=== PATIENT | female | born 1985 | race African-American/Black ===

== ENCOUNTER 2016-08-22 16:22 | Outpatient (CLI) | payer MEDICAID | END 2016-08-22 17:09 | disposition home or self-care (01) | LOC: LC 16:22 | PROVIDERS: ATTEND Specialist | PROC: 4A1HXCZ Monitoring of Products of Conception, Cardiac Rate, External Approach (ICD-10-PCS; principal; 2016-08-22) | DX: Z34.93 Encounter for supervision of normal pregnancy, unspecified, third trimester (principal); Z36 Encounter for antenatal screening of mother; Z3A.35 35 weeks gestation of pregnancy | CPT/HCPCS: 59025 ==

== ENCOUNTER 2016-08-25 17:19 | Outpatient (CLI) | payer MEDICAID | END 2016-08-25 18:00 | disposition home or self-care (01) | LOC: LC 17:19 | PROVIDERS: ATTEND Obstetrics & Gynecology | PROC: 4A1HXCZ Monitoring of Products of Conception, Cardiac Rate, External Approach (ICD-10-PCS; principal; 2016-08-25) | DX: Z34.93 Encounter for supervision of normal pregnancy, unspecified, third trimester (principal); Z36 Encounter for antenatal screening of mother; Z3A.36 36 weeks gestation of pregnancy | CPT/HCPCS: 59025 ==

== ENCOUNTER 2016-09-01 15:02 | Outpatient (CLI) | payer MEDICAID ==
--- NOTE | 2016-09-01 15:10 | Non Stress Test Report ---
Non Stress Test Datetime Report Generated by CPN: 09/01/2016 15:10 DEMOGRAPHIC EGA NST: 36.2 INDICATION Indication for Study: Ordered by Provider VITAL SIGNS Temperature - NST: 98.1 Pulse - NST: 80 RESP - NST: 16 NBPSYS NST: 110 NBPDIA NST: 72 MONITORING Monitor Explained: Monitor Explained; Test Explained; Patient Verbalized Understanding Time on Monitor: 08/25/2016 17:37 Time off Monitor: 08/25/2016 18:10 NST Duration: 33 NST INTERVENTIONS NST Interventions: PO Hydration; Reposition Patient Physician Notified NST: Dr Arnulfo BABY A: [id number] BABY A Movement : Present Contraction Frequency : irreg FHR Baseline : 120 Accelerations : 15X15 Decelerations : None Variability : Moderate 6-25bpm NST Review: Meets Criteria for Reactive NST NST Review and Verified By : Arun Pritchard RN NST Results: Reactive NST REPORT Report Trigger: Send Report
== END 2016-09-01 15:55 | disposition home or self-care (01) ==
LOC: LC 15:02
PROVIDERS: ATTEND Obstetrics & Gynecology
PROC: 4A1HXCZ Monitoring of Products of Conception, Cardiac Rate, External Approach (ICD-10-PCS; principal; 2016-09-01)
DX: O47.03 False labor before 37 completed weeks of gestation, third trimester (principal); Z3A.36 36 weeks gestation of pregnancy
CPT/HCPCS: 59025

== ENCOUNTER 2016-09-14 22:00 | Outpatient (CLI) | payer MEDICAID ==
--- NOTE | 2016-09-14 22:06 | Non Stress Test Report ---
Non Stress Test Datetime Report Generated by CPN: 09/14/2016 22:05 DEMOGRAPHIC EGA NST: 37.2 INDICATION Indication for Study: Ordered by Provider Indication for Study (NST) Other: sent from the office VITAL SIGNS Temperature - NST: 99.9 MONITORING Monitor Explained: Monitor Explained; Test Explained; Patient Verbalized Understanding Time on Monitor: 09/01/2016 15:10 Time off Monitor: 09/01/2016 15:44 NST Duration: 34 NST INTERVENTIONS NST Interventions: Reposition Patient Physician Notified NST: J Coon CNM BABY A: [id number] BABY A Movement : Present Contraction Frequency : irreg FHR Baseline : 120 Accelerations : 15X15 Decelerations : None Variability : Moderate 6-25bpm NST Review: Meets Criteria for Reactive NST NST Review and Verified By : Bony Yee RN NST Results: Reactive NST REPORT Report Trigger: Send Report
[2016-09-14] MEDS ORDERED: HYDROXYZINE PAMOATE 50 MG CAPSULE ONE (23:12)
[2016-09-14 23:19] LABS: APPEARANCE,URINE CLEAR; BILIRUBIN,URINE NEGATIVE (NEGATIVE); GLUCOSE, URINE NEGATIVE (NEGATIVE); KETONES,URINE NEGATIVE (NEGATIVE); LEUKOCYTE ESTERASE,URINE TRACE (NEGATIVE); NITRITE,URINE NEGATIVE (NEGATIVE); PROTEIN,URINE NEGATIVE (NEGATIVE); URINE SPECIFIC GRAVITY 1.009; UROBILINOGEN,URINE NEGATIVE mg/dL (<2.0)
--- NOTE | 2016-09-14 23:19 | Non Stress Test Report ---
Non Stress Test Datetime Report Generated by CPN: 09/14/2016 23:19 DEMOGRAPHIC EGA NST: 39.1 INDICATION Indication for Study: Other Indication for Study (NST) Other: LC VITAL SIGNS Temperature - NST: 98.2 Pulse - NST: 76 NBPSYS NST: 124 NBPDIA NST: 78 MONITORING Monitor Explained: Monitor Explained; Test Explained; Patient Verbalized Understanding Time on Monitor: 09/14/2016 22:38 Time off Monitor: 09/14/2016 23:09 NST Duration: 31 NST INTERVENTIONS NST Interventions: PO Hydration Physician Notified NST: Harper BABY A Movement : Present Contraction Frequency : Irritability FHR Baseline : 120 Accelerations : 15X15 Decelerations : None Variability : Moderate 6-25bpm NST Review: Meets Criteria for Reactive NST NST Review and Verified By : Kelly Winkler, RNC NST Results: Reactive NST REPORT Report Trigger: Send Report
[2016-09-14 23:42] LABS: URINE BARBITURATES SCREEN NEGATIVE; URINE METHADONE SCREEN NEGATIVE; URINE OPIATES LOW NEGATIVE; URINE PHENCYCLIDINE SCREEN NEGATIVE
== END 2016-09-14 23:15 | disposition home or self-care (01) ==
LOC: LC 22:00
PROVIDERS: ATTEND Obstetrics & Gynecology
PROC: 4A1HXCZ Monitoring of Products of Conception, Cardiac Rate, External Approach (ICD-10-PCS; principal; 2016-09-14)
DX: O47.1 False labor at or after 37 completed weeks of gestation (principal); Z3A.39 39 weeks gestation of pregnancy
CPT/HCPCS: 59025; 81005; 80307; J3490

== ENCOUNTER 2016-09-15 21:43 | Outpatient (CLI) | payer MEDICAID ==
[2016-09-15 22:26] LABS: APPEARANCE,URINE CLEAR; BILIRUBIN,URINE NEGATIVE (NEGATIVE); GLUCOSE, URINE NEGATIVE (NEGATIVE); KETONES,URINE NEGATIVE (NEGATIVE); LEUKOCYTE ESTERASE,URINE SMALL (NEGATIVE); NITRITE,URINE NEGATIVE (NEGATIVE); PROTEIN,URINE NEGATIVE (NEGATIVE); URINE SPECIFIC GRAVITY 1.005; UROBILINOGEN,URINE NEGATIVE mg/dL (<2.0)
[2016-09-15 22:43] LABS: URINE BARBITURATES SCREEN NEGATIVE; URINE METHADONE SCREEN NEGATIVE; URINE OPIATES LOW NEGATIVE; URINE PHENCYCLIDINE SCREEN NEGATIVE
[2016-09-15] MEDS ORDERED: HYDROXYZINE PAMOATE 50 MG CAPSULE ONE (23:25)
--- NOTE | 2016-09-15 23:33 | Non Stress Test Report ---
Non Stress Test Datetime Report Generated by CPN: 09/15/2016 23:33 DEMOGRAPHIC EGA NST: 39.2 INDICATION Indication for Study: Other Indication for Study (NST) Other: LC MONITORING Monitor Explained: Monitor Explained; Test Explained; Patient Verbalized Understanding Time on Monitor: 09/15/2016 22:06 Time off Monitor: 09/15/2016 22:37 NST Duration: 31 NST INTERVENTIONS NST Interventions: PO Hydration Physician Notified NST: Dr. Olivas BABY A Movement : Present Contraction Frequency : rare FHR Baseline : 125 Accelerations : 15X15 Decelerations : None Variability : Moderate 6-25bpm NST Review: Meets Criteria for Reactive NST NST Review and Verified By : Rajwinder Melara RN NST Results: Reactive NST REPORT Report Trigger: Send Report
== END 2016-09-15 23:34 | disposition home or self-care (01) ==
LOC: LC 21:43
PROVIDERS: ATTEND Obstetrics & Gynecology
PROC: 4A1HXCZ Monitoring of Products of Conception, Cardiac Rate, External Approach (ICD-10-PCS; principal; 2016-09-15)
DX: O47.1 False labor at or after 37 completed weeks of gestation (principal); Z3A.39 39 weeks gestation of pregnancy
CPT/HCPCS: 59025; 81005; 80307; J3490

== ENCOUNTER 2016-09-16 17:12 | Inpatient (IN) | payer MEDICAID ==
[2016-09-16] MEDS ORDERED: PENICILLIN G-K 5 MILLION UNIT VIAL ONE ×2 (17:22→22:56)
[2016-09-16] MEDS ORDERED: RINGERS SOLUTION,LACTATED 1,000 ML IV PRN ×2 (17:27→17:40)
[2016-09-16] MEDS ORDERED: BUPIVACAINE HCL 0.25 % INJ/PF (2.5 MG/1 ML) 30 ML VIAL INFIL ONE (17:27)
[2016-09-16] MEDS ORDERED: FENTANYL/BUPIVACAINE/NS/PF 100 ML EPI PRN (17:27)
[2016-09-16] MEDS ORDERED: EPHEDRINE SULFATE INJ 50 MG/1 ML AMPULE IV PRN (17:27)
[2016-09-16] MEDS ORDERED: BENZOIN/ALOE VERA/STORAX/TOLU TINCTURE 60 ML TP PRN (17:27)
[2016-09-16] MEDS ORDERED: RINGERS SOLUTION,LACTATED 300 ML IV ONE (17:40)
[2016-09-16] MEDS ORDERED: OXYTOCIN/NORMAL SALINE 1,000 ML IV PRN (17:40)
[2016-09-16] MEDS ORDERED: OXYTOCIN/NORMAL SALINE 20 UNIT/1,000 ML RTUINJ ONE (17:43)
--- NOTE | 2016-09-16 18:01 | L&D Flow Sheet ---
LD Flowsheet Datetime Report Generated by CPN: 09/16/2016 18:00 Datetime: 09/16/2016 17:54 IV/Blood Work: Labs Drawn (Katerin Oliviaka, RN) IV/Blood Work: IV Started (Ashley French, RN) Datetime: 09/16/2016 17:53 Antibiotics: Penicillin IV (Units) @ 2.5 million (Katerin Marhefka, RN) Datetime: 09/16/2016 17:38 Communication Comments: Orders recieved to start pitocin. (Bettina Cavazos RN) Datetime: 09/16/2016 17:37 Pain Scale: 0 (Katerin Yee RN) Pain Presence: None/Denies (Katerin Yee RN) Pain Type: N/A (Katerin Yee RN) Pain Goal: 0 (Katerin Yee RN) Pain Relief Measures: Comfort Measures (Katerin Yee RN) Membrane Status: Ruptured (Katerin Yee RN) Membranes Ruptured Date/Time: 09/16/2016 16:45 (Katerin Yee RN) Membranes Rupture Method: Spontaneous (Katerin Yee RN) Amniotic Fluid Color: Clear (Katerin Yee RN) Amniotic Fluid Amount: Moderate (Katerin Yee RN) Amniotic Fluid Odor: Normal (Katerin Yee RN) Vaginal Bleeding: None (Katerin Yee RN) Level of Consciousness: Fully Conscious (Katerin Yee RN) DTR's/Clonus: DTRs 2+; No Clonus (Katerinblake Yee, RN) Headache: Denies (Katerin Derrickfka, RN) Breath Sounds, Left: Clear and Equal (Katerin Derrickfka, RN) Breath Sounds, Right: Clear and Equal (Kateirn Derrickfka, RN) Nausea/Vomiting: Denies (Katerinblake Mezafka, RN) RUQ Epigastric Pain: Denies (Katerin Mezafgiuseppe, RN) LaborFlag: OB Triage (QS system process) Datetime: 09/16/2016 17:36 Unit Routine: Consents Signed (Katerin Yee, RN) Datetime: 09/16/2016 17:34 NBP Sys/Regina/Mean (mmHg): 141 (QS system process) : 83 (QS system process) : 107 (QS system process) Pulse: 66 (QS system process) Respirations: 16 (Katerin Yee, RN) Temperature (F): 98.3 (Katerin Yee, RN) Temperature (C): 36.8 (QS system process) Temperature Route: Oral (CORNELIA Colindres Patient Position/Activity: Left Tilt (Katerin Yee RN) LaborFlag: OB Triage (QS system process) Datetime: 09/16/2016 17:32 Instructional Method: Verbal; Patient Instructed; Verbalized Understanding (Katerin Yee RN) Plan of Care: Plan of Care Discussed (Katerin Yee RN) Unit Routine: [place] to Room; Call Gong; Bed; Visiting Policy; Unit Personnel; Monitoring; Bathroom Privileges (Katerin Yee RN) Labor/Induction: Labor Stages (Katerin Yee RN) Datetime: 09/16/2016 17:31 Dilatation (cm): 3.5 (Katerin Yee RN) Effacement (%): 80 (Katerin Yee RN) Station: -1 (Katerin Yee RN) Exam by: Bony Yee RN (Katerin Yee RN) Vaginal Bleeding: None (Katerin Yee RN) Cervix, Consistency: Soft (Katerin Yee RN) Cervix, Position: Midposition (Katerin Yee RN) Datetime: 09/16/2016 17:25 Communication: Report Given to @ (Annotations: Dr Arredondo notified that pt arrived on unit grossly ruptured, GBS positive. Orders received to admit pt and pt may have epidural prn for pain. ) (Bettina Cavazos RN)
[2016-09-16 18:08] LABS: ABSOLUTE LYMPHOCYTES (AUTO) 2.3 10^3/uL (0.5-4.7); ABSOLUTE MONOCYTES (AUTO) 0.5 10^3/uL (0.1-1.4); ABSOLUTE NEUT (AUTO) 7.9 10^3/uL (1.7-8.2); BASOPHILS % (AUTO) 0.2 % (0-2); EOSINOPHILS % (AUTO) 0.3 % (0-6); HEMATOCRIT 28.9 % (36.0-47.0); HEMOGLOBIN 9.3 g/dL (12.0-15.5); LYMPHOCYTES % (AUTO) 20.9 % (13-45); MEAN CORPUSCULAR HEMOGLOBIN 24.6 pg (27.0-33.4); MEAN CORPUSCULAR HGB CONC 32.2 g/dL (32.0-36.0); MEAN CORPUSCULAR VOLUME 76 fl (80-97); MONOCYTES % (AUTO) 5.1 % (3-13); RED BLOOD COUNT 3.79 10^6/uL (3.72-5.28); RED CELL DISTRIBUTION WIDTH 16.7 % (11.5-14.0); SEGMENTED NEUTROPHILS % (AUTO) 73.5 % (42-78); WHITE BLOOD COUNT 10.8 10^3/uL (4.0-10.5)
[2016-09-16 18:17] LABS: APPEARANCE,URINE CLOUDY; BILIRUBIN,URINE NEGATIVE (NEGATIVE); GLUCOSE, URINE 50 mg/dL (NEGATIVE); KETONES,URINE NEGATIVE (NEGATIVE); LEUKOCYTE ESTERASE,URINE MODERATE (NEGATIVE); NITRITE,URINE NEGATIVE (NEGATIVE); PROTEIN,URINE 100 mg/dL (NEGATIVE); URINE SPECIFIC GRAVITY 1.008; UROBILINOGEN,URINE NEGATIVE mg/dL (<2.0)
[2016-09-16 18:36] LABS: URINE BARBITURATES SCREEN NEGATIVE; URINE METHADONE SCREEN NEGATIVE; URINE OPIATES LOW NEGATIVE; URINE PHENCYCLIDINE SCREEN NEGATIVE
[2016-09-16] MEDS ORDERED: OXYTOCIN/NORMAL SALINE 20 UNIT/1,000 ML RTUINJ IV PRN ×2 (18:53→23:22)
[2016-09-16] MEDS ORDERED: EPHEDRINE SULFATE INJ 50 MG/1 ML AMPULE ONE (19:37)
[2016-09-16] MEDS ORDERED: MISOPROSTOL 0.2 MG TABLET ONE (19:37)
[2016-09-16] MEDS ORDERED: FENTANYL/BUPIVACAINE/NS/PF 200 MCG/100 ML RTUINJ EPI ONE (19:37)
[2016-09-16] MEDS ORDERED: LIDOCAINE 1% INJ-PF (10 MG/ML) 30 ML SDV ONE (19:37)
[2016-09-16] MEDS ORDERED: OXYTOCIN/NORMAL SALINE 0 UNIT/0 ML RTUINJ ONE (19:37)
[2016-09-16] MEDS ORDERED: BUPIVACAINE HCL 0.25 % INJ/PF (2.5 MG/1 ML) 30 ML VIAL ONE (19:37)
--- NOTE | 2016-09-16 20:01 | L&D Flow Sheet ---
LD Flowsheet Datetime Report Generated by CPN: 09/16/2016 20:00 Datetime: 09/16/2016 19:58 NBP Sys/Regina/Mean (mmHg): 156 (QS system process) : 76 (QS system process) : 107 (QS system process) Pulse: 68 (QS system process) LaborFlag: Antepartum (QS system process) Datetime: 09/16/2016 19:45 Monitor Mode: External; Palpation (Crystal Athens, RN) Frequency (min): 3-4.5 (Crystal Neptali, RN) Quality: Moderate (Crystal Neptali, RN) Duration (sec): 70-90 (Crystal Athens, RN) Duration Criteria: Less than Two 120 Second Contractions (Crystal Neptali, RN) Resting Tone (Palpate): Relaxed (Crystal Athens, RN) Monitor Mode: External US (Shayla Rashidergrass, RN) FHR Baseline Rate : 125 (Shayla Rashidergrass, RN) Variability: Moderate 6-25 bpm (Crystal Neptali, RN) Accelerations: 15X15 (Shayla Athens, RN) Pitocin (milliunit): Pitocin Remains (milliunits) @ 8 (Shayla Rashidergrass, RN) IV/Blood Work: New IV Bag Hung (Shayla Gunderson, RN) Patient Position/Activity: Right Tilt; Semi-Fowlers (Shayla Neptali, RN) Datetime: 09/16/2016 19:43 NBP Sys/Regina/Mean (mmHg): 151 (QS system process) : 69 (QS system process) : 99 (QS system process) Pulse: 68 (QS system process) LaborFlag: Antepartum (QS system process) Datetime: 09/16/2016 19:30 Monitor Mode: External; Palpation (Shayla Gunderson RN) Frequency (min): 3-5 (Shayla Gunderson RN) Quality: Moderate to Strong (Shayla Gunderson RN) Duration (sec): 50-100 (Shayla Gunderson RN) Duration Criteria: Less than Two 120 Second Contractions (Shayla Gunderson RN) Resting Tone (Palpate): Relaxed (Shayla Gunderson RN) Monitor Mode: External US (Shayla Gunderson RN) FHR Baseline Rate : 120 (Shayla Gunderson RN) Variability: Moderate 6-25 bpm (Shayla Gunderson RN) Pitocin (milliunit): Pitocin Remains (milliunits) @ 8 (Shayla Gunderson RN) Patient Position/Activity: Right Tilt; Semi-Fowlers (Shayla Gunderson RN) Datetime: 09/16/2016 19:29 Stage of : Antepartum (Shayla Gunderson RN) Strip Reviewed by: Marlyn Gunderson RN (Shayla Gunderson, RN) Communication: Call/Page Placed to Provider (Shayla Gunderson RN) Provider Notified (Name): Dr. Arredondo (Shayla Gunderson RN) Notification Reason: Maternal Vital Sign Change (Shayla Gunderson RN) Communication Comments: Notified of elevated BP, received orders to continue to watch BP and notify if continues to be elevated after epidural is received. Pt bolusing for epidural at this moment. (Shayla Gunderson RN) Datetime: 09/16/2016 19:28 NBP Sys/Regina/Mean (mmHg): 159 (QS system process) : 86 (QS system process) : 115 (QS system process) Pulse: 69 (QS system process) LaborFlag: OB Triage (QS system process) Datetime: 09/16/2016 19:24 NBP Sys/Regina/Mean (mmHg): 150 (QS system process) : 75 (QS system process) : 106 (QS system process) Pulse: 71 (QS system process) LaborFlag: OB Triage (QS system process) Datetime: 09/16/2016 19:15 NBP Sys/Regina/Mean (mmHg): 158 (QS system process) : 85 (QS system process) : 116 (QS system process) Pulse: 67 (QS system process) Monitor Mode: External; Palpation (Crystal Neptali, RN) Frequency (min): 3-4 (Crystal Neptali, RN) Quality: Moderate (Crystal Athens, RN) Duration (sec): 60-90 (Crystal Neptali, RN) Duration Criteria: Less than Two 120 Second Contractions (Crystal Neptali, RN) Resting Tone (Palpate): Relaxed (Crystal Neptali, RN) Monitor Mode: External US (Crystal Neptali, RN) FHR Baseline Rate : 125 (Crystal Athens, RN) Variability: Moderate 6-25 bpm (Crystal Neptali, RN) Accelerations: 10X10 (Crystal Neptali, RN) Pitocin (milliunit): Pitocin Increased to (milliunits) @ 8 (Crystal Athens, RN) Patient Position/Activity: Right Tilt; Semi-Fowlers (Crystal Neptali, RN) LaborFlag: OB Triage (QS system process) Datetime: 09/16/2016 19:13 NBP Sys/Regina/Mean (mmHg): 171 (QS system process) : 92 (QS system process) : 122 (QS system process) Pulse: 75 (QS system process) LaborFlag: OB Triage (QS system process) Datetime: 09/16/2016 19:08 Level of Consciousness: Fully Conscious (Crystal Neptali, RN) DTR's/Clonus: DTRs 2+; No Clonus (Crystal Athens, RN) Headache: Denies (Crystal Athens, RN) Breath Sounds, Left: Clear and Equal (Crystal Neptali, RN) Breath Sounds, Right: Clear and Equal (Crystal Neptali, RN) Nausea/Vomiting: Denies (Crystal Neptali, RN) RUQ Epigastric Pain: Denies (Crystal Neptali, RN) Pitocin (milliunit): Pitocin Remains (milliunits) @ (Annotations: 6) (Crystal Neptali, RN) Datetime: 09/16/2016 18:57 NBP Sys/Regina/Mean (mmHg): 139 (QS system process) : 84 (QS system process) : 105 (QS system process) Pulse: 72 (QS system process) LaborFlag: OB Triage (QS system process) Datetime: 09/16/2016 18:45 Monitor Mode: External (Katerin Marhefka, RN) Frequency (min): 2-6 (Katerin Marhefka, RN) Quality: Mild (Katerin Marhefka, RN) Duration (sec): 60-70 (Katerin Marhefka, RN) Resting Tone (Palpate): Relaxed (Katerin Marhefka, RN) Monitor Mode: External US (Katerin Marhefka, RN) FHR Baseline Rate : 125 (Katerin Marhefka, RN) FHR Baseline Changes: No Baseline Change (Katerin Marhefka, RN) Variability: Moderate 6-25 bpm (Katerin Marhefka, RN) Accelerations: 15X15 (Katerin Marhefka, RN) Decelerations: None (Katerin Marhefka, RN) Pitocin (milliunit): Pitocin Increased to (milliunits) @ (Annotations: 6) (Katerin Marhefka, RN) Datetime: 09/16/2016 18:43 NBP Sys/Regina/Mean (mmHg): 144 (QS system process) : 79 (QS system process) : 105 (QS system process) Pulse: 74 (QS system process) LaborFlag: OB Triage (QS system process) Datetime: 09/16/2016 18:35 NBP Sys/Regina/Mean (mmHg): 173 (QS system process) : 88 (QS system process) : 120 (QS system process) Pulse: 74 (QS system process) LaborFlag: OB Triage (QS system process) Datetime: 09/16/2016 18:31 Monitor Interventions for UA: [place] Adjusted (Bettina Cavazos, RN) Monitor Interventions for FHR: Ultrasound Adjusted (Bettina Dirk, RN) Datetime: 09/16/2016 18:30 Monitor Mode: External (Katerin Marhefka, RN) Frequency (min): X1 (Katerin Marhefka, RN) Quality: Mild (Katerin Marhefka, RN) Duration (sec): 80 (Katerin Marhefka, RN) Resting Tone (Palpate): Relaxed (Katerin Marhefka, RN) Monitor Mode: External US (Katerin Marhefka, RN) FHR Baseline Rate : 120 (Katerin Marhefka, RN) FHR Baseline Changes: No Baseline Change (Katerin Marhefka, RN) Variability: Minimal - Undetectable to <=5 bpm (Katerin Marhefka, RN) Accelerations: None (Katerin Marhefka, RN) Decelerations: None (Katerin Marhefka, RN) Pitocin (milliunit): Pitocin Increased to (milliunits) @ (Annotations: 4) (Katerin Marhefka, RN) Datetime: 09/16/2016 18:28 I/O Interventions: Up to BR (Katerin Marhefka, RN) Datetime: 09/16/2016 18:25 Patient Position/Activity: Right Tilt (Bettina Cavazos, RN) Datetime: 09/16/2016 18:15 Monitor Mode: External; Palpation (Katerin Yee, RN) Frequency (min): no ctxs noted (Katerin Yee, RN) Quality: Mild (Katerin Yee, RN) Resting Tone (Palpate): Relaxed (Katerin Yee, RN) Monitor Mode: External US (Katerin Yee, RN) FHR Baseline Rate : 120 (Katerin Yee, RN) FHR Baseline Changes: No Baseline Change (Katerin Yee, RN) Variability: Minimal - Undetectable to <=5 bpm (Katerin Derrickfka, RN) Accelerations: 10X10 (Katerin Derrickfka, RN) Decelerations: None (Katerin Bakerka, RN) Pitocin (milliunit): Pitocin Remains (milliunits) @ (Annotations: 2) (Katerin Bakerka, RN) Datetime: 09/16/2016 18:09 Pitocin (milliunit): Pitocin Started (milliunits) @ 2 (Katerin Yee RN) Strip Reviewed by: Dr Arredondo (Bettina Cavazos RN) Datetime: 09/16/2016 18:04 NBP Sys/Regina/Mean (mmHg): 139 (QS system process) : 96 (QS system process) : 114 (QS system process) Pulse: 68 (QS system process) Respirations: 16 (Katerin Yee RN) LaborFlag: OB Triage (QS system process) Datetime: 09/16/2016 18:00 Monitor Mode: External; Palpation (Katerin Yee RN) Frequency (min): no ctxs noted/pt denies (Katerin Yee RN) Quality: Mild (Katerin Yee RN) Resting Tone (Palpate): Relaxed (Katerin Yee RN) Monitor Mode: External US (Katerin Yee RN) FHR Baseline Rate : 120 (Katerin Yee RN) FHR Baseline Changes: No Baseline Change (Katerin Yee RN) Variability: Moderate 6-25 bpm (Katerin Yee RN) Accelerations: 15X15 (Katerin Yee RN) Decelerations: None (Katerin Yee RN) Communication Comments: Dr. Arredondo on unit reviewed strip, order received to start Pitocin. (Katerin Yee RN)
[2016-09-16] MEDS ORDERED: NALBUPHINE HCL INJ 10 MG/1 ML AMPULE ONE (21:55)
[2016-09-16] MEDS ORDERED: PROMETHAZINE HCL INJ 25 MG/1 ML VIAL ONE (21:58)
--- NOTE | 2016-09-16 22:01 | L&D Flow Sheet ---
LD Flowsheet Datetime Report Generated by CPN: 09/16/2016 22:00 Datetime: 09/16/2016 21:57 NBP Sys/Regina/Mean (mmHg): 131 (QS system process) : 80 (QS system process) : 101 (QS system process) Pulse: 78 (QS system process) LaborFlag: Antepartum (QS system process) Datetime: 09/16/2016 21:31 Temperature (F): 98.7 (Shayla Gunderson RN) Temperature (C): 37.1 (QS system process) LaborFlag: Antepartum (QS system process) Datetime: 09/16/2016 21:30 Monitor Mode: External; Palpation (Crystal Neptali, RN) Frequency (min): 3-4 (Crystal Freeburg, RN) Quality: Moderate to Strong (Crystal Neptali, RN) Duration (sec): 60-80 (Crystal Freeburg, RN) Duration Criteria: Less than Two 120 Second Contractions (Crystal Neptali, RN) Resting Tone (Palpate): Relaxed (Crystal Neptali, RN) Monitor Mode: External US (Crystal Neptali, RN) FHR Baseline Rate : 115 (Crystal Freeburg, RN) Variability: Moderate 6-25 bpm (Crystal Neptali, RN) Accelerations: 15X15 (Crystal Freeburg, RN) Pitocin (milliunit): Pitocin Increased to (milliunits) @ 12 (Crystal Freeburg, RN) Patient Position/Activity: Left Lateral; Peanut Ball (Crystal Freeburg, RN) Datetime: 09/16/2016 21:28 NBP Sys/Regina/Mean (mmHg): 125 (QS system process) : 71 (QS system process) : 90 (QS system process) Pulse: 68 (QS system process) LaborFlag: Antepartum (QS system process) Datetime: 09/16/2016 21:16 NBP Sys/Regina/Mean (mmHg): 112 (QS system process) : 60 (QS system process) : 80 (QS system process) Pulse: 65 (QS system process) LaborFlag: Antepartum (QS system process) Datetime: 09/16/2016 21:15 Monitor Mode: External; Palpation (Crystal Neptali, RN) Frequency (min): 3 (Crystal Neptali, RN) Quality: Moderate to Strong (Crystal Freeburg, RN) Duration (sec): 60-90 (Crystal Neptali, RN) Duration Criteria: Less than Two 120 Second Contractions (Crystal Freeburg, RN) Resting Tone (Palpate): Relaxed (Crystal Freeburg, RN) Monitor Mode: External US (Crystal Neptali, RN) Monitor Interventions for FHR: Ultrasound Adjusted (Shayla Gunderson RN) FHR Baseline Rate : 120 (Shayla Gunderson RN) Variability: Moderate 6-25 bpm (Shayla Gunderson RN) Pitocin (milliunit): Pitocin Remains (milliunits) @ 10 (Shayla Gunderson, MAILE) Patient Position/Activity: Left Extreme; Peanut Ball (Shayla Gunderson, RN) Datetime: 09/16/2016 21:00 Monitor Mode: Palpation (Shayla Gunderson RN) Monitor Interventions for UA: [place] Adjusted (Shayla Gunderson RN) Frequency (min): 3 (Shayla Gunderson RN) Quality: Moderate to Strong (Shayla Gunderson RN) Duration (sec): 60-70 (Shayla Gunderson RN) Duration Criteria: Less than Two 120 Second Contractions (Shayla Gunderson RN) Resting Tone (Palpate): Relaxed (Shayla Gunderson RN) Monitor Mode: External US (Shayla Gunderson RN) Monitor Interventions for FHR: Ultrasound Adjusted (Shayla Gunderson RN) FHR Baseline Rate : 120 (Shayla Gunderson RN) Pitocin (milliunit): Pitocin Increased to (milliunits) @ 10 (Shayla Gunderson, MAILE) Patient Position/Activity: Left Lateral; Peanut Ball (Crystal Neptali, RN) Datetime: 09/16/2016 20:57 NBP Sys/Regina/Mean (mmHg): 134 (QS system process) : 82 (QS system process) : 102 (QS system process) Pulse: 75 (QS system process) LaborFlag: Antepartum (QS system process) Datetime: 09/16/2016 20:49 Dilatation (cm): 4.0 (Crystal Freeburg, RN) Effacement (%): 80 (Crystal Neptali, RN) Station: -1 (Crystal Neptali, RN) Exam by: Marlyn Gunderson RN (Crystal Freeburg, RN) Cervix, Consistency: Soft (Crystal Freeburg, RN) Datetime: 09/16/2016 20:48 I/O Interventions: Gant Cath Inserted (Crystal Freeburg, RN) Datetime: 09/16/2016 20:45 Monitor Mode: External US (Crystal Freeburg, RN) Monitor Interventions for FHR: Ultrasound Adjusted (Crystal Freeburg, RN) Comments: Pt sitting up (Crystal Neptali, RN) Pitocin (milliunit): Pitocin Remains (milliunits) @ 8 (Crystal Freeburg, RN) Datetime: 09/16/2016 20:43 NBP Sys/Regina/Mean (mmHg): 137 (QS system process) : 79 (QS system process) : 103 (QS system process) Pulse: 64 (QS system process) LaborFlag: Antepartum (QS system process) Datetime: 09/16/2016 20:40 NBP Sys/Regina/Mean (mmHg): 139 (QS system process) : 77 (QS system process) : 102 (QS system process) Pulse: 71 (QS system process) LaborFlag: Antepartum (QS system process) Datetime: 09/16/2016 20:38 NBP Sys/Regina/Mean (mmHg): 175 (QS system process) : 83 (QS system process) : 116 (QS system process) Pulse: 75 (QS system process) Epidural Procedure Other: Pump Started (Crystal Freeburg, RN) LaborFlag: Antepartum (QS system process) Datetime: 09/16/2016 20:37 Pulse: 72 (QS system process) SpO2 (%): 93 (QS system process) LaborFlag: Antepartum (QS system process) Datetime: 09/16/2016 20:33 Anesthesia Plans: Epidural (Crystal Freeburg, RN) Epidural Positioning: Sitting (Crystal Neptali, RN) Epidural Procedure: Test Dose (Crystal Freeburg, RN) Datetime: 09/16/2016 20:32 Pulse: 79 (QS system process) SpO2 (%): 100 (QS system process) Epidural Positioning: Sitting (Crystal Freeburg, RN) Epidural Procedure: Cath Placed (Crystal Freeburg, RN) LaborFlag: Antepartum (QS system process) Datetime: 09/16/2016 20:31 NBP Sys/Regina/Mean (mmHg): 185 (QS system process) : 91 (QS system process) : 131 (QS system process) Pulse: 80 (QS system process) LaborFlag: Antepartum (QS system process) Datetime: 09/16/2016 20:30 NBP Sys/Regina/Mean (mmHg): 186 (Annotations: pt sitting for epidural, BP attempted on leg with cuff. ) (Shayla Gunderson RN) : 96 (QS system process) : 133 (QS system process) Pulse: 77 (QS system process) Monitor Mode: External; Palpation (Shayla Gunderson RN) Frequency (min): 3-3.5 (Shayla Gunderson RN) Quality: Moderate to Strong (Shayla Gunderson RN) Duration (sec): 60-90 (Shayla Gunderson RN) Duration Criteria: Less than Two 120 Second Contractions (Shayla Gunderson RN) Resting Tone (Palpate): Relaxed (Shayla Gunderson RN) Monitor Interventions for FHR: Ultrasound Adjusted (Shayla Gunderson RN) Pitocin (milliunit): Pitocin Remains (milliunits) @ 8 (Shayla Gunderson RN) Patient Position/Activity: High Fowlers (Shayla Gunderson RN) LaborFlag: Antepartum (QS system process) Datetime: 09/16/2016 20:27 Pulse: 70 (QS system process) SpO2 (%): 100 (QS system process) LaborFlag: Antepartum (QS system process) Datetime: 09/16/2016 20:26 Procedure Verify: Correct Patient Identity; Correct Side and Site are Marked; Accurate Procedure Consent Form; Agreement on Procedure to be Done; Correct Patient Position; Addressed Need to Administer Antibiotics or Fluids for Irrigation; Safety Precautions Based on Patient History or Medication Use (Shayla Gunderson RN) Epidural Positioning: Sitting (Shayla Gunderson RN) Anesthesia Comments: Dr. Buckner at bedside (Shayla Gunderson RN) Datetime: 09/16/2016 20:20 Pulse: 71 (QS system process) SpO2 (%): 92 (QS system process) LaborFlag: Antepartum (QS system process) Datetime: 09/16/2016 20:19 Pulse: 73 (QS system process) SpO2 (%): 100 (QS system process) LaborFlag: Antepartum (QS system process) Datetime: 09/16/2016 20:15 Monitor Mode: External; Palpation (Shayla Neptali, RN) Frequency (min): 2.5-3 (Crystal Freeburg, RN) Quality: Moderate to Strong (Crystal Freeburg, RN) Duration (sec): 60-90 (Crystal Neptali, RN) Duration Criteria: Less than Two 120 Second Contractions (Crystal Neptali, RN) Resting Tone (Palpate): Relaxed (Crystal Neptali, RN) Monitor Mode: External US (Shayla Freeburg, RN) Monitor Interventions for FHR: Ultrasound Adjusted (Crystal Freeburg, RN) FHR Baseline Rate : 120 (Crystal Freeburg, RN) Variability: Moderate 6-25 bpm (Crystal Neptali, RN) Accelerations: 15X15 (Crystal Neptali, RN) Pain Coping: Breathing Through Contractions; Requesting Pain Medication or Epidural (Crystal Neptali, RN) Pitocin (milliunit): Pitocin Remains (milliunits) @ 8 (Shayla Gunderson RN) Patient Position/Activity: High Fowlers (Shayla Gunderson, RN) Comfort Measures: Anesthesia Notified (Shayla Rashidergrass, RN) Datetime: 09/16/2016 20:14 NBP Sys/Regina/Mean (mmHg): 166 (QS system process) : 70 (QS system process) : 101 (QS system process) Pulse: 75 (QS system process) Pulse: 72 (QS system process) SpO2 (%): 94 (QS system process) LaborFlag: Antepartum (QS system process) Datetime: 09/16/2016 20:07 Anesthesia Plans: Epidural (Shayla Louiss, RN) Epidural Positioning: Sitting (Crystal Freeburg, RN) Datetime: 09/16/2016 20:00 Monitor Mode: External; Palpation (Shayla Gunderson RN) Frequency (min): 2.5-4 (Shayla Gunderson RN) Quality: Moderate to Strong (Shayla Gunderson, RN) Duration (sec): 60-80 (Shayla Gunderson, MAILE) Duration Criteria: Less than Two 120 Second Contractions (Shayla Gunderson RN) Resting Tone (Palpate): Relaxed (Shayla Gunderson, MAILE) Monitor Mode: External US (Shayla Gunderson RN) FHR Baseline Rate : 120 (Shayla Gunderson RN) Variability: Moderate 6-25 bpm (Shayla Gunderson RN) Accelerations: 15X15 (Shayla Gunderson RN) Pitocin (milliunit): Pitocin Remains (milliunits) @ 8 (Shayla Gunderson RN) Patient Position/Activity: Right Tilt; Semi-Fowlers (Shayla Gunderson RN)
[2016-09-16] MEDS ORDERED: MEASLES,MUMPS&RUBELLA VACC/PF 0.5 ML VIAL SUBCUT PRN (23:22)
[2016-09-16] MEDS ORDERED: ACETAMINOPHEN WITH CODEINE #3 TABLET PO PRN (23:22)
[2016-09-16] MEDS ORDERED: ZOLPIDEM TARTRATE 5 MG TABLET PO PRN (23:22)
[2016-09-16] MEDS ORDERED: DIPH/PERTUSS(ACELL)/TETANUS VAC/PF 0.5 ML SYR (>=10YO) IM PRN (23:22)
[2016-09-16] MEDS ORDERED: DIBUCAINE 1% OINTMENT 28 GM TP PRN (23:22)
[2016-09-16] MEDS ORDERED: BENZOCAINE/MENTHOL AEROSOL SPRAY 56 ML TOP PRN (23:22)
--- NOTE | 2016-09-17 00:54 | Delivery Summary ---
Del Sum A-C Datetime Report Generated by CPN: 09/17/2016 00:54 ADMISSION DATA Chief Complaint: Uterine Contractions; Suspected Ruptured Membranes Indication for Induction: PROM Admission Impression: Term, Intrauterine ; Ruptured Membranes DELIVERY PERSONNEL Delivery Doctor:: Brianda Arredondo MD Anesthesiologist:: Ludwin Cash MD Labor and Delivery Nurse:: Shayla Gunderson RN Labor and Delivery Nurse:: Xin Plunkett RN Nursery Nurse:: April Montez RN Print Shop Manager/CHIEF SCHOOL FINANCE OFFICER: Jazlyn Landrum, CHIEF SCHOOL FINANCE OFFICER MATERNAL INFORMATION Delivery Anesthesia: Epidural Medications After Delivery: Pitocin Drip 20 Units/1000ml NSS Estimated Blood Loss (ml): 200 Maternal Complications: None LABOR SUMMARY EDC: 09/20/2016 00:00 No. Babies in Womb: 1 Attempted: No Labor Anesthesia: Epidural LABOR INFORMATION Reason for Induction: Not Applicable Onset of Labor: 09/16/2016 16:45 Complete Dilatation: 09/16/2016 23:02 Oxytocin: Augmentation Group B Beta Strep: positive Antibiotics # of Doses: 2 Antibiotics Time of Last Dose: 2255 Name of Antibiotic Given: Penicillin Steroids Given: None Reason Steroids Not Administered: Not Applicable MEMBRANES Membranes Rupture Method: Spontaneous Rupture of Membranes: 09/16/2016 16:45 Length of Rupture (hr): 6.42 Amniotic Fluid Color: Clear Amniotic Fluid Amount: Moderate Amniotic Fluid Odor: Normal STAGES OF LABOR Stage 1 hr: 6 Stage 1 min: 17 Stage 2 hr: 0 Stage 2 min: 8 Stage 3 hr: 0 Stage 3 min: 5 Total Time in Labor hr: 6 Total Time in Labor min: 30 VAGINAL DELIVERY Episiotomy: None Laceration Extension: N/A Laceration Type: None Sponge Count Correct: N/A CSECTION DELIVERY Primary Indication: N/A Secondary Indication: N/A CSection Incision: N/A BABY A INFORMATION Infant Delivery Date/Time: 09/16/2016 23:10 Method of Delivery: Vaginal Born in Route : No : N/A Forceps: N/A Vacuum Extraction: N/A Shoulder Dystocia : No PRESENTATION/POSITION BABY A Presentation: Cephalic Cephalic Presentation: Vertex Breech Presentation: N/A PLACENTA INFORMATION BABY A Placenta Delivery Time : 09/16/2016 23:15 Placenta Method of Delivery: Spontaneous Placenta Status: Delivered SCORES BABY A Heart Rate 1 min: >100 bpm Resp Effort 1 min: Good Cry Reflex Irritability 1 min: Cough or Sneeze or Pulls Away Muscle Tone 1 min: Active Motion Color 1 min: Blue/Pale Resuscitation Effort 1 min: N/A SCORE 1 MIN: 8 Heart Rate 5 min: >100 bpm Resp Effort 5 min: Good Cry Reflex Irritability 5 min: Cough or Sneeze or Pulls Away Muscle Tone 5 min: Active Motion Color 5 min: Body [place], Extremities Blue Resuscitation Effort 5 min: N/A SCORE 5 MIN: 9 INFORMATION BABY A Gestational Age at Delivery: 39.3 Gestational Status: Full Term- 39- 40.6 Weeks Outcome : Liveborn Condition : Stable Sex: Male IDENTIFICATION BABY A Verification Date/Time: 09/16/2016 23:38 ID Band Number: [id number] Mother's Name Verified: Yes RN Verifying Infant: B. Ring _ A. Quiroz WEIGHT/LENGTH BABY A Birthweight (gm): 3750 Infant Weight (lb): 8 Weight (oz): 4 Infant Length (in): 21.00 Infant Length (cm): 53.34 CORD INFORMATION BABY A No. Cord Vessels: 3 Nuchal Cord : Around Neck x1, Loose Cord Blood Taken: Yes-For Storage (Mom's Blood type +) Suction: Mouth; Nose ASSESSMENT BABY A Complications: None Physical Findings at Delivery: Within Normal Limits Respirations: Appears Normal Skin to Skin: Yes Skin to Skin Time (min): 45 Eligibility Technician/ALS Called : No Infant Care By: Savanahcalderon Montez, MAILE Transferred To: Remains with Mother BABY B INFORMATION : N/A SIGNATURES Signature: with User ID: [email or web address]
--- NOTE | 2016-09-17 01:23 | Admission Physical ---
Datetime Report Generated by CPN: 09/17/2016 01:23 CURRENT ADMISSION Chief Complaint: Uterine Contractions; Suspected Ruptured Membranes Indication for Induction: PROM Admit Plan: Admit to Unit; Initiate Labor Induction Protocol ALLERGIES Medication Allergies: No Medication Allergies: No Known Allergies (09/15/2016) Medication Allergies: No Known Allergies (09/14/2016) Medication Allergies: No Known Allergies (08/22/2016) Medication Allergies: No Known Allergies (10/13/2014) Latex: No Latex Allergies OBSTETRICAL HISTORY EDC: 09/20/2016 00:00 : 3 Para: 2 Para: 2 Term: 2 : 0 SAB: 0 IAB: 0 Ectopic: 0 Livin Cesareans: 0 VBACs: 0 Multiple Births: 0 Gestational Diabetes: No Rh Sensitization: No Incompetent Cervix: No BARI: No Infertility: No ART Treatment: No Uterine Anomaly: No IUGR: No Hx Previous C/S: No Macrosomia: No Hx Loss/Stillborn: No PIH: No Hx : No Placenta Previa/Abruption: No Depression/PP Depression: No PTL/PROM: No Post Hemorrhage: No Current Procedures: Ultrasound; NST Obstetrical History Comments: G1- @ 37wks G2- @ 41wks G3- Current SEE RECORDS Alcohol: No Marijuana : No Cocaine: No Other Illicit Drugs: No Cigarettes: Former Smoker. 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 Surgery: No Heart Disease: No Hosp/Surgery: Yes Autoimmune Disorder: No Anesthetic Complications: No Kidney Disease: No Abnormal Pap Smear: No Neuro/Epilepsy: No Psychiatric Disorders: No Other Medical Diseases: No Hepatitis/Liver Disease: No Significant Family History: No Varicosities/Phlebitis: No Trauma/Violence : No Thyroid Dysfunction: No Medical History Comments: anemia during INFECTIOUS HISTORY Gonorrhea: No Genital Herpes: No Chlamydia: No Tuberculosis: No Syphilis: No Hepatitis: No HIV/AIDS Exposure: No Rash or Viral Illness: No HPV: No PHYSICAL EXAM General: Normal HEENT: Normal Neurologic: Normal Thyroid: Normal Heart: Normal Lungs: Normal Breast: Normal Back: Normal Abdomen: Normal Genitourinary Exam: Normal Extremities: Normal DTRs: Normal Pelvic Type: Adequate Vital Signs: Reviewed VAGINAL EXAM Dilatation: 4 Effacement: 80 Station: -1 MEMBRANES Pooling: Positive Membranes: Ruptured Amniotic Fluid Color: Clear FETUS A EGA: 39.3 Monitoring: External US FHR- Baseline: 120 Variability: Moderate 6-25bpm Accelerations: 10X10 Decelerations: None FHR Category: Category I Estimated Weight (gm): 3900 Presentation: Vertex PLANS FOR LABOR AND DELIVERY Labor and Delivery: None Pain Management: Epidural Feeding Preference: Formula Benefit of Breast Feed Discussed: Yes Circumcision: Yes INFORMED CONSENT Signature: with User ID: [email or web address]
[2016-09-17] MEDS: ACETAMINOPHEN WITH CODEINE #3 TABLET PO PRN ×3 (01:33→19:18)
[2016-09-17] MEDS: IBUPROFEN 800 MG TABLET PO SCH ×3 (05:24→21:49)
--- NOTE | 2016-09-17 07:00 | L&D Flow Sheet ---
LD Flowsheet Datetime Report Generated by CPN: 09/17/2016 07:00 Datetime: 09/17/2016 01:15 Stage of : Recovery (Crystal Neptali, RN) Datetime: 09/17/2016 01:00 Stage of : Recovery (Crystal Neptali, RN) Datetime: 09/17/2016 00:45 Stage of : Recovery (Crystal Swan[place], RN) NBP Sys/Regina/Mean (mmHg): 138 (Crystal Neptali, RN) : 70 (Crystal Neptali, RN) Pulse: 78 (Crystal [place], RN) Respirations: 18 (Crystal Swanville, RN) Datetime: 09/17/2016 00:30 Stage of : Recovery (Crystal [place], RN) NBP Sys/Regina/Mean (mmHg): 140 (Crystal [place], RN) : 68 (Crystal Neptali, RN) Pulse: 76 (Crystal Neptali, RN) Respirations: 18 (Crystal [place], RN) Temperature (F): 98.4 (Crystal Neptali, RN) Temperature (C): 36.9 (QS system process) Temperature Route: Oral (Crystal Neptali, RN) Pain Scale: 0 (Crystal Neptali, RN) Pain Presence: None/Denies (Crystal [place], RN) Pain Type: N/A (Crystal [place], RN) Pain Goal: 1 (Crystal Neptali, RN) Pain Relief Measures: Comfort Measures (Crystal [place], RN) Datetime: 09/17/2016 00:15 Stage of : Recovery (Crystal Neptali, RN) Datetime: 09/17/2016 00:06 Stage of : Recovery (Crystal Neptali, RN) NBP Sys/Regina/Mean (mmHg): Manual BP 130/65 (Crystal [place], RN) Pulse: 70 (Crystal [place], RN) Respirations: 18 (Crystal [place], RN) Datetime: 09/17/2016 00:00 Stage of : Recovery (Crystal Neptali, RN) Pain Scale: 0 (Shayla Rashidergrass, RN) Pain Presence: None/Denies (Shayla Rashidergrass, RN) Pain Type: N/A (Crystal Neptali, RN) Pain Goal: 1 (Shayla Swan[place], RN) Pain Relief Measures: Comfort Measures (Crystal [place], RN) Datetime: 09/16/2016 23:57 NBP Sys/Regina/Mean (mmHg): 163 (QS system process) : 79 (QS system process) : 112 (QS system process) Pulse: 68 (QS system process) LaborFlag: Labor (QS system process) Datetime: 09/16/2016 23:56 Stage of : Labor (Shayla Louiss, RN) Antibiotics: Penicillin IV (Units) @ (Annotations: 2,500,000 Units IV) (Crystal Swanville, RN) Datetime: 09/16/2016 23:55 Stage of : Recovery (Crystal Neptali, RN) NBP Sys/Regina/Mean (mmHg): Dr. Arredondo notified of labile BP's. Will continue to monitor at this time. (Crystal Neptali, RN) Datetime: 09/16/2016 23:48 NBP Sys/Regina/Mean (mmHg): 157 (QS system process) : 74 (QS system process) : 106 (QS system process) Pulse: 70 (QS system process) Datetime: 09/16/2016 23:47 NBP Sys/Regina/Mean (mmHg): 165 (QS system process) : 78 (QS system process) : 117 (QS system process) Pulse: 75 (QS system process) Datetime: 09/16/2016 23:45 Stage of : Recovery (Crystal Swan[place], RN) Datetime: 09/16/2016 23:42 NBP Sys/Regina/Mean (mmHg): 165 (QS system process) : 82 (QS system process) : 117 (QS system process) Pulse: 76 (QS system process) Datetime: 09/16/2016 23:30 Stage of : Recovery (Crystal Swan[place], RN) Datetime: 09/16/2016 23:27 NBP Sys/Regina/Mean (mmHg): 149 (QS system process) : 72 (QS system process) : 104 (QS system process) Pulse: 80 (QS system process) Datetime: 09/16/2016 23:25 Stage of : Recovery (Crystal Swan[place], RN) Temperature (F): 98.3 (Crystal [place], RN) Temperature (C): 36.8 (QS system process) Temperature Route: Oral (Crystal Neptali, RN) Datetime: 09/16/2016 23:15 Stage of : Recovery (Crystal Neptali, RN) Datetime: 09/16/2016 23:12 NBP Sys/Regina/Mean (mmHg): 141 (QS system process) : 77 (QS system process) : 106 (QS system process) Pulse: 86 (QS system process) LaborFlag: Antepartum (QS system process) Datetime: 09/16/2016 23:07 Pushing: Coached on Pushing; Urge to Push (Crystal Neptali, RN) Pushing Position: Pushing with Contractions (Crystal Swanville, RN) Pushing Progress: Pushing Effectively with Contractions (Crystal Swanville, RN) Datetime: 09/16/2016 23:04 Communication: Provider at Bedside (Shayla Gunderson RN) Datetime: 09/16/2016 23:02 Dilatation (cm): 10.0 (Shayla Gunderson RN) Effacement (%): 100 (Shayla Gunderson RN) Station: 1 (Shayla Gunderson RN) Exam by: Marlyn Gunderson RN (Shayla Gunderson RN) Communication: RN at Bedside; RN Reviewed Strip (Shayla Gunderson RN) Communication Comments: Dr. Arredondo called for delivery. Provider en route to unit. (Mallory Zamora RN) Datetime: 09/16/2016 22:57 NBP Sys/Regina/Mean (mmHg): 140 (QS system process) : 84 (QS system process) : 104 (QS system process) Pulse: 80 (QS system process) LaborFlag: Antepartum (QS system process) Datetime: 09/16/2016 22:56 Dilatation (cm): 8.5 (Crystal Swanville, RN) Effacement (%): 100 (Crystal Swan[place], RN) Station: 0 (Crystal Neptali, RN) Exam by: Marlyn Gunderson RN (Crystal Neptali, RN) Vaginal Bleeding: Normal Show (Crystal Neptali, RN) Cervix, Consistency: Soft (Crystal Neptali, RN) Cervix, Position: Anterior (Crystal Swanville, RN) Datetime: 09/16/2016 22:52 Pushing: Urge to Push (Crystal Neptali, RN) Datetime: 09/16/2016 22:45 Monitor Mode: External; Palpation (Crystal Swan[place], RN) Frequency (min): 2-4.5 (Crystal Swanville, RN) Quality: Moderate to Strong (Crystal Swanville, RN) Duration (sec): 60-100 (Crystal Swanville, RN) Duration Criteria: Less than Two 120 Second Contractions (Crystal Neptali, RN) Resting Tone (Palpate): Relaxed (Crystal Neptali, RN) Monitor Interventions for FHR: Ultrasound Adjusted (Shayla Gunderson, RN) Comments: UTD ultrasound adjusted, RN at bedside (Shayla Gunderson, RN) Patient Position/Activity: Right Tilt (Crystal Swanville, RN) Datetime: 09/16/2016 22:43 NBP Sys/Regina/Mean (mmHg): 139 (QS system process) : 96 (QS system process) : 113 (QS system process) Pulse: 146 (QS system process) LaborFlag: Antepartum (QS system process) Datetime: 09/16/2016 22:30 Monitor Mode: External; Palpation (Crystal Swanville, RN) Frequency (min): 2-4 (Crystal Swanville, RN) Quality: Moderate to Strong (Crystal Swanville, RN) Duration (sec): 70-90 (Crystal Swanville, RN) Duration Criteria: Less than Two 120 Second Contractions (Crystal Neptali, RN) Resting Tone (Palpate): Relaxed (Crystal Swanville, RN) Monitor Mode: External US (Crystal Swanville, RN) FHR Baseline Rate : 115 (Crystal Neptali, RN) Variability: Moderate 6-25 bpm (Crystal Swanville, RN) Decelerations: Early (Crystal Swanville, RN) Pitocin (milliunit): Pitocin Remains (milliunits) @ (Annotations: 16) (Crystal Swanville, RN) Patient Position/Activity: Tailors (Crystal Swanville, RN) Datetime: 09/16/2016 22:27 NBP Sys/Regina/Mean (mmHg): 147 (QS system process) : 82 (QS system process) : 108 (QS system process) Pulse: 74 (QS system process) LaborFlag: Antepartum (QS system process) Datetime: 09/16/2016 22:15 Monitor Mode: External; Palpation (Crystal Neptali, RN) Frequency (min): 2.5-4 (Crystal Neptali, RN) Quality: Moderate to Strong (Crystal Swanville, RN) Duration (sec): 90 (Crystal Swanville, RN) Duration Criteria: Less than Two 120 Second Contractions (Crystal Swanville, RN) Resting Tone (Palpate): Relaxed (Crystal Swanville, RN) Monitor Mode: External US (Crystal Swanville, RN) FHR Baseline Rate : 115 (Crystal Neptali, RN) Variability: Moderate 6-25 bpm (Crystal Neptali, RN) Pain Presence: Intermittent (Crystal Swanville, RN) Pain Type: Contraction (Crystal Swanville, RN) Pain Location: Perineum (Crystal Swanville, RN) Pain Coping: Breathing Through Contractions (Crystal Swanville, RN) Pitocin (milliunit): Pitocin Increased to (milliunits) @ 16 (Crystal Neptali, RN) Patient Position/Activity: Tailors (Crystal Neptali, RN) LaborFlag: Antepartum (QS system process) Datetime: 09/16/2016 22:13 Pain Scale: 3 (Crystal Swan[place], RN) Pain Presence: Intermittent (Crystal Neptali, RN) Pain Type: Stabbing; Pressure (Shayla Gunderson RN) Pain Location: Perineum (Shayla Gunderson RN) Pain Goal: 1 (Shayla Gunderson RN) Pain Relief Measures: Comfort Measures (Shayla Gunderson RN) Pain Coping: Breathing Through Contractions (Shayla Gunderson RN) Pain Assessment Comments: Pt states that her pain is in her pelvic area, pt showing increasing signs of labor, pt denies Nubain _ phenergan at this time. (Shayla Gunderson RN) Comfort Measures: Breathing/Relaxation; Family Support (Shayla Gunderson RN) LaborFlag: Antepartum (QS system process) Datetime: 09/16/2016 22:12 NBP Sys/Regina/Mean (mmHg): 141 (QS system process) : 80 (QS system process) : 105 (QS system process) Pulse: 65 (QS system process) LaborFlag: Antepartum (QS system process) Datetime: 09/16/2016 22:00 Monitor Interventions for UA: [place] Adjusted (Shayla Gunderson RN) Monitor Interventions for FHR: Ultrasound Adjusted (Shayla Gunderson RN) Dilatation (cm): 6.0 (Shayla Gunderson RN) Effacement (%): 100 (Shayla Gunderson RN) Station: -1 (Shayla Gunderson RN) Exam by: Marlyn Gunderson RN (Shayla Gunderson RN) Vaginal Bleeding: Normal Show (Shayla Gunderson RN) Cervix, Consistency: Soft (Shayla Gunderson RN) Cervix, Position: Anterior (Shayla Gunderson RN) Pitocin (milliunit): Pitocin Increased to (milliunits) @ 14 (Shayla Gunderson RN) Patient Position/Activity: Tailors (Shayla Gunderson RN) Datetime: 09/16/2016 21:57 NBP Sys/Regina/Mean (mmHg): 131 (QS system process) : 80 (QS system process) : 101 (QS system process) Pulse: 78 (QS system process) LaborFlag: Antepartum (QS system process) Datetime: 09/16/2016 21:51 Dilatation (cm): 5.0 (Shayla Gunderson RN) Effacement (%): 90 (Shalya Gunderson RN) Station: -1 (Shayla Gunderson RN) Exam by: Marlyn Gunderson RN (Shayla Gunderson RN) Vaginal Bleeding: None (Shayla Gunderson, RN) Cervix, Consistency: Soft (Shayla Gunderson RN) Cervix, Position: Anterior (Shayla Gunderson, RN) Datetime: 09/16/2016 21:50 Pain Presence: Intermittent (Shayla Gunderson RN) Pain Type: Stabbing; Pressure (Shayla Gunderson RN) Pain Location: Perineum (Shayla Gunderson RN) Pain Relief Measures: Comfort Measures (Shayla Gunderson RN) Pain Assessment Comments: Dr. Sheikh notified that pt states " my epidural is not working", received orders for 10 mg nubain _ 12.5 of phenergan IV. (Shayla Gunderson RN) Comfort Measures: Anesthesia Notified (Shayla Gunderson RN) LaborFlag: Antepartum (QS system process) Datetime: 09/16/2016 21:31 Temperature (F): 98.7 (Crystal Neptali, RN) Temperature (C): 37.1 (QS system process) LaborFlag: Antepartum (QS system process) Datetime: 09/16/2016 21:30 Monitor Mode: External; Palpation (Crystal Neptali, RN) Frequency (min): 3-4 (Crystal Swan[place], RN) Quality: Moderate to Strong (Crystal Neptali, RN) Duration (sec): 60-80 (Crystal Neptali, RN) Duration Criteria: Less than Two 120 Second Contractions (Crystal [place], RN) Resting Tone (Palpate): Relaxed (Crystal Neptali, RN) Monitor Mode: External US (Crystal Swanville, RN) FHR Baseline Rate : 115 (Crystal Neptali, RN) Variability: Moderate 6-25 bpm (Crystal Neptali, RN) Accelerations: 15X15 (Crystal Neptali, RN) Pitocin (milliunit): Pitocin Increased to (milliunits) @ 12 (Crystal Swan[place], RN) Patient Position/Activity: Left Lateral; Peanut Ball (Crystal Neptali, RN) Datetime: 09/16/2016 21:28 NBP Sys/Regina/Mean (mmHg): 125 (QS system process) : 71 (QS system process) : 90 (QS system process) Pulse: 68 (QS system process) LaborFlag: Antepartum (QS system process) Datetime: 09/16/2016 21:16 NBP Sys/Regina/Mean (mmHg): 112 (QS system process) : 60 (QS system process) : 80 (QS system process) Pulse: 65 (QS system process) LaborFlag: Antepartum (QS system process) Datetime: 09/16/2016 21:15 Monitor Mode: External; Palpation (Crystal Neptali, RN) Frequency (min): 3 (Crystal [place], RN) Quality: Moderate to Strong (Crystal Swan[place], RN) Duration (sec): 60-90 (Crystal Neptali, RN) Duration Criteria: Less than Two 120 Second Contractions (Shayla Rashidergrass, RN) Resting Tone (Palpate): Relaxed (Shayla Gunderson, RN) Monitor Mode: External US (Shayla Gunderson, RN) Monitor Interventions for FHR: Ultrasound Adjusted (Shayla Neptali, RN) FHR Baseline Rate : 120 (Shayla Swanville, RN) Variability: Moderate 6-25 bpm (Shayla Rashidergrass, RN) Pitocin (milliunit): Pitocin Remains (milliunits) @ 10 (Shayla Rashidergrass, RN) Patient Position/Activity: Left Extreme; Peanut Ball (Shayla Swanville, RN) Datetime: 09/16/2016 21:00 Monitor Mode: Palpation (Shayla Gunderson, RN) Monitor Interventions for UA: [place] Adjusted (Shayla Gunderson, RN) Frequency (min): 3 (Shayla Rashidergrass, RN) Quality: Moderate to Strong (Shayla Gunderson, RN) Duration (sec): 60-70 (Shayla Swanville, RN) Duration Criteria: Less than Two 120 Second Contractions (Shayla Swan[place], RN) Resting Tone (Palpate): Relaxed (Shayla Rashidergrass, RN) Monitor Mode: External US (Shayla Gunderson, RN) Monitor Interventions for FHR: Ultrasound Adjusted (Shayla Gunderson, RN) FHR Baseline Rate : 120 (Shayla Swan[place], RN) Pitocin (milliunit): Pitocin Increased to (milliunits) @ 10 (Shayla Neptali, RN) Patient Position/Activity: Left Lateral; Peanut Ball (Shayla Neptali, RN) Datetime: 09/16/2016 20:57 NBP Sys/Regina/Mean (mmHg): 134 (QS system process) : 82 (QS system process) : 102 (QS system process) Pulse: 75 (QS system process) LaborFlag: Antepartum (QS system process) Datetime: 09/16/2016 20:49 Dilatation (cm): 4.0 (Crystal Swanville, RN) Effacement (%): 80 (Crystal Swanville, RN) Station: -1 (Crystal Swan[place], RN) Exam by: Marlyn Gunderson RN (Crystal Neptali, RN) Cervix, Consistency: Soft (Crystal Neptali, RN) Datetime: 09/16/2016 20:48 I/O Interventions: Gant Cath Inserted (Crystal Neptali, RN) Datetime: 09/16/2016 20:45 Monitor Mode: External US (Crystal Swanville, RN) Monitor Interventions for FHR: Ultrasound Adjusted (Crystal Swanville, RN) Comments: Pt sitting up (Crystal Neptali, RN) Pitocin (milliunit): Pitocin Remains (milliunits) @ 8 (Crystal Neptali, RN) Datetime: 09/16/2016 20:43 NBP Sys/Regina/Mean (mmHg): 137 (QS system process) : 79 (QS system process) : 103 (QS system process) Pulse: 64 (QS system process) LaborFlag: Antepartum (QS system process) Datetime: 09/16/2016 20:40 NBP Sys/Regina/Mean (mmHg): 139 (QS system process) : 77 (QS system process) : 102 (QS system process) Pulse: 71 (QS system process) LaborFlag: Antepartum (QS system process) Datetime: 09/16/2016 20:38 NBP Sys/Regina/Mean (mmHg): 175 (QS system process) : 83 (QS system process) : 116 (QS system process) Pulse: 75 (QS system process) Epidural Procedure Other: Pump Started (Crystal Swan[place], RN) LaborFlag: Antepartum (QS system process) Datetime: 09/16/2016 20:37 Pulse: 72 (QS system process) SpO2 (%): 93 (QS system process) LaborFlag: Antepartum (QS system process) Datetime: 09/16/2016 20:33 Anesthesia Plans: Epidural (Crystal Swanville, RN) Epidural Positioning: Sitting (Crystal [place], RN) Epidural Procedure: Test Dose (Crystal Neptali, RN) Datetime: 09/16/2016 20:32 Pulse: 79 (QS system process) SpO2 (%): 100 (QS system process) Epidural Positioning: Sitting (Crystal Neptali, RN) Epidural Procedure: Cath Placed (Crystal Swanville, RN) LaborFlag: Antepartum (QS system process) Datetime: 09/16/2016 20:31 NBP Sys/Regina/Mean (mmHg): 185 (QS system process) : 91 (QS system process) : 131 (QS system process) Pulse: 80 (QS system process) LaborFlag: Antepartum (QS system process) Datetime: 09/16/2016 20:30 NBP Sys/Regina/Mean (mmHg): 186 (Annotations: pt sitting for epidural, BP attempted on leg with cuff. ) (Shayla Gunderson RN) : 96 (QS system process) : 133 (QS system process) Pulse: 77 (QS system process) Monitor Mode: External; Palpation (Shayla Gunderson RN) Frequency (min): 3-3.5 (Shayla Gunderson RN) Quality: Moderate to Strong (Shayla Gunderson RN) Duration (sec): 60-90 (Shayla Gunderson RN) Duration Criteria: Less than Two 120 Second Contractions (Shayla Gunderson RN) Resting Tone (Palpate): Relaxed (Shayla Gunderson RN) Monitor Interventions for FHR: Ultrasound Adjusted (Shayla Gunderson RN) Pitocin (milliunit): Pitocin Remains (milliunits) @ 8 (Shayla Gunderson RN) Patient Position/Activity: High Fowlers (Shayla Gunderson RN) LaborFlag: Antepartum (QS system process) Datetime: 09/16/2016 20:27 Pulse: 70 (QS system process) SpO2 (%): 100 (QS system process) LaborFlag: Antepartum (QS system process) Datetime: 09/16/2016 20:26 Procedure Verify: Correct Patient Identity; Correct Side and Site are Marked; Accurate Procedure Consent Form; Agreement on Procedure to be Done; Correct Patient Position; Addressed Need to Administer Antibiotics or Fluids for Irrigation; Safety Precautions Based on Patient History or Medication Use (Shayla Gunderson RN) Epidural Positioning: Sitting (Shayla Gunderson RN) Anesthesia Comments: Dr. Buckner at bedside (Shayla Gunderson RN) Datetime: 09/16/2016 20:20 Pulse: 71 (QS system process) SpO2 (%): 92 (QS system process) LaborFlag: Antepartum (QS system process) Datetime: 09/16/2016 20:19 Pulse: 73 (QS system process) SpO2 (%): 100 (QS system process) LaborFlag: Antepartum (QS system process) Datetime: 09/16/2016 20:15 Monitor Mode: External; Palpation (Shayla Neptali, RN) Frequency (min): 2.5-3 (Crystal [place], RN) Quality: Moderate to Strong (Crystal Neptali, RN) Duration (sec): 60-90 (Crystal [place], RN) Duration Criteria: Less than Two 120 Second Contractions (Crystal Neptali, RN) Resting Tone (Palpate): Relaxed (Crystal [place], RN) Monitor Mode: External US (Shayla Gunderson, RN) Monitor Interventions for FHR: Ultrasound Adjusted (Shayla Gunderson, RN) FHR Baseline Rate : 120 (Shayla Neptali, RN) Variability: Moderate 6-25 bpm (Crystal [place], RN) Accelerations: 15X15 (Shayla Rashidergrass, RN) Pain Coping: Breathing Through Contractions; Requesting Pain Medication or Epidural (Shayla Rashidergrass, RN) Pitocin (milliunit): Pitocin Remains (milliunits) @ 8 (Shayla Gunderson, RN) Patient Position/Activity: High Fowlers (Shayla Gunderson RN) Comfort Measures: Anesthesia Notified (Shayla Gunderson, RN) Datetime: 09/16/2016 20:14 NBP Sys/Regina/Mean (mmHg): 166 (QS system process) : 70 (QS system process) : 101 (QS system process) Pulse: 75 (QS system process) Pulse: 72 (QS system process) SpO2 (%): 94 (QS system process) LaborFlag: Antepartum (QS system process) Datetime: 09/16/2016 20:07 Anesthesia Plans: Epidural (Shayla Gunderson RN) Epidural Positioning: Sitting (Crystal Neptali, RN) Datetime: 09/16/2016 20:00 Monitor Mode: External; Palpation (Crystal Neptali, RN) Frequency (min): 2.5-4 (Crystal [place], RN) Quality: Moderate to Strong (Crystal Neptali, RN) Duration (sec): 60-80 (Crystal [place], RN) Duration Criteria: Less than Two 120 Second Contractions (Crystal [place], RN) Resting Tone (Palpate): Relaxed (Crystal Neptali, RN) Monitor Mode: External US (Crystal [place], RN) FHR Baseline Rate : 120 (Crystal [place]ville, RN) Variability: Moderate 6-25 bpm (Crystal [place], RN) Accelerations: 15X15 (Crystal Neptali, RN) Pitocin (milliunit): Pitocin Remains (milliunits) @ 8 (Crystal Neptali, RN) Patient Position/Activity: Right Tilt; Semi-Fowlers (Crystal Swanville, RN) Datetime: 09/16/2016 19:58 NBP Sys/Regina/Mean (mmHg): 156 (QS system process) : 76 (QS system process) : 107 (QS system process) Pulse: 68 (QS system process) LaborFlag: Antepartum (QS system process) Datetime: 09/16/2016 19:45 Monitor Mode: External; Palpation (Shayla Swanville, RN) Frequency (min): 3-4.5 (Crystal Neptali, RN) Quality: Moderate (Crystal Neptali, RN) Duration (sec): 70-90 (Crystal Neptali, RN) Duration Criteria: Less than Two 120 Second Contractions (Crystal Neptali, RN) Resting Tone (Palpate): Relaxed (Crystal Neptali, RN) Monitor Mode: External US (Crystal Neptali, RN) FHR Baseline Rate : 125 (Crystal Neptali, RN) Variability: Moderate 6-25 bpm (Crystal Neptali, RN) Accelerations: 15X15 (Crystal [place], RN) Pitocin (milliunit): Pitocin Remains (milliunits) @ 8 (Shayla Neptali, RN) IV/Blood Work: New IV Bag Hung (Shayla Gunderson, RN) Patient Position/Activity: Right Tilt; Semi-Fowlers (Shayla Neptali, RN) Datetime: 09/16/2016 19:43 NBP Sys/Regina/Mean (mmHg): 151 (QS system process) : 69 (QS system process) : 99 (QS system process) Pulse: 68 (QS system process) LaborFlag: Antepartum (QS system process) Datetime: 09/16/2016 19:30 Monitor Mode: External; Palpation (Crystal [place], RN) Frequency (min): 3-5 (Crystal [place], RN) Quality: Moderate to Strong (Crystal [place], RN) Duration (sec): 50-100 (Crystal Neptali, RN) Duration Criteria: Less than Two 120 Second Contractions (Crystal [place], RN) Resting Tone (Palpate): Relaxed (Crystal Neptali, RN) Monitor Mode: External US (Crystal Neptali, RN) FHR Baseline Rate : 120 (Crystal [place], RN) Variability: Moderate 6-25 bpm (Crystal [place], RN) Pitocin (milliunit): Pitocin Remains (milliunits) @ 8 (Crystal Neptali, RN) Patient Position/Activity: Right Tilt; Semi-Fowlers (Crystal Neptali, RN) Datetime: 09/16/2016 19:29 Stage of : Antepartum (Shayla Gunderson RN) Strip Reviewed by: Marlyn Gunderson RN (Shayla Gunderson RN) Communication: Call/Page Placed to Provider (Shayla Gunderson RN) Provider Notified (Name): Dr. Arredondo (Shayla Gunderson RN) Notification Reason: Maternal Vital Sign Change (Shayla Gunderson RN) Communication Comments: Notified of elevated BP, received orders to continue to watch BP and notify if continues to be elevated after epidural is received. Pt bolusing for epidural at this moment. (Shayla Gunderson RN) Datetime: 09/16/2016 19:28 NBP Sys/Regina/Mean (mmHg): 159 (QS system process) : 86 (QS system process) : 115 (QS system process) Pulse: 69 (QS system process) LaborFlag: OB Triage (QS system process) Datetime: 09/16/2016 19:24 NBP Sys/Regina/Mean (mmHg): 150 (QS system process) : 75 (QS system process) : 106 (QS system process) Pulse: 71 (QS system process) LaborFlag: OB Triage (QS system process) Datetime: 09/16/2016 19:15 NBP Sys/Regina/Mean (mmHg): 158 (QS system process) : 85 (QS system process) : 116 (QS system process) Pulse: 67 (QS system process) Monitor Mode: External; Palpation (Shayla [place], RN) Frequency (min): 3-4 (Crystal [place], RN) Quality: Moderate (Crystal Neptali, RN) Duration (sec): 60-90 (Crystal Neptali, RN) Duration Criteria: Less than Two 120 Second Contractions (Crystal [place], RN) Resting Tone (Palpate): Relaxed (Crystal [place], RN) Monitor Mode: External US (Crystal Neptali, RN) FHR Baseline Rate : 125 (Crystal [place], RN) Variability: Moderate 6-25 bpm (Crystal [place], RN) Accelerations: 10X10 (Crystal Neptali, RN) Pitocin (milliunit): Pitocin Increased to (milliunits) @ 8 (Crystal Neptali, RN) Patient Position/Activity: Right Tilt; Semi-Fowlers (Shayla Neptali, RN) LaborFlag: OB Triage (QS system process) Datetime: 09/16/2016 19:13 NBP Sys/Regina/Mean (mmHg): 171 (QS system process) : 92 (QS system process) : 122 (QS system process) Pulse: 75 (QS system process) LaborFlag: OB Triage (QS system process) Datetime: 09/16/2016 19:08 Level of Consciousness: Fully Conscious (Shayla Gunderson RN) DTR's/Clonus: DTRs 2+; No Clonus (Shayla Gunderson, RN) Headache: Denies (Shayla Gunderson RN) Breath Sounds, Left: Clear and Equal (Shayla Gunderson RN) Breath Sounds, Right: Clear and Equal (Shayla Gunderson, RN) Nausea/Vomiting: Denies (Shayla Gunderson RN) RUQ Epigastric Pain: Denies (Shayla Gunderson RN) Pitocin (milliunit): Pitocin Remains (milliunits) @ (Annotations: 6) (Shayla Gunderson RN)
[2016-09-17 07:37] LABS: HEMATOCRIT 27.3 % (36.0-47.0); HEMOGLOBIN 8.8 g/dL (12.0-15.5); HGB HCT DIFFERENCE -0.9; MEAN CORPUSCULAR HEMOGLOBIN 24.5 pg (27.0-33.4); MEAN CORPUSCULAR HGB CONC 32.3 g/dL (32.0-36.0); MEAN CORPUSCULAR VOLUME 76 fl (80-97); RED CELL DISTRIBUTION WIDTH 16.3 % (11.5-14.0); WHITE BLOOD COUNT 14.2 10^3/uL (4.0-10.5)
--- NOTE | 2016-09-17 09:33 | PDOC PROGRESS REPORT ---
Subjective-OB Subjective: Post Delivery Day: 1 31 year old. Denies any needs at this time, states lochia is stable, pain well controlled, tolerating diet, voiding without difficulty. Physical Exam (OB) Vital Signs: Temp Pulse Resp BP Pulse Ox 98.3 F 68 20 135/79 H 100 09/17/16 08:46 09/17/16 08:46 09/17/16 08:46 09/17/16 08:46 09/17/16 08:46 Intake & Output 09/16/16 09/17/16 09/18/16 06:59 06:59 06:59 Weight 131.496 kg - PIH/Pre-Eclampsia Clonus: Negative Headache: Absent Epigastric Pain: No Visual Changes: No - Lochia Lochia Amount: Scant < 10 ml Lochia Color: Rubra/Red - Abdomen Description: Tender, Soft, Round Hernia Present: No Fundal Description: Firm, Midline Fundal Height: u/u - u/2 Objective-Diagnostic Laboratory: 09/17/16 07:22 09/16/16 09/16/16 09/16/16 17:20 17:46 17:46 WBC 10.8 H RBC 3.79 Hgb 9.3 L Hct 28.9 L MCV 76 L MCH 24.6 L MCHC 32.2 RDW 16.7 H Plt Count 282 Seg Neutrophils % 73.5 Lymphocytes % 20.9 Monocytes % 5.1 Eosinophils % 0.3 Basophils % 0.2 Absolute Neutrophils 7.9 Absolute Lymphocytes 2.3 Absolute Monocytes 0.5 Absolute Eosinophils 0.0 Absolute Basophils 0.0 Urine Color YELLOW Urine Appearance CLOUDY Urine pH 7.0 Ur Specific [place] 1.008 Urine Protein 100 H Urine Glucose (UA) 50 H Urine Ketones NEGATIVE Urine Blood SMALL H Urine Nitrite NEGATIVE Ur Leukocyte Esterase MODERATE H Blood Type A POSITIVE Antibody Screen NEGATIVE 09/17/16 07:22 WBC 14.2 H RBC 3.60 L Hgb 8.8 L Hct 27.3 L MCV 76 L MCH 24.5 L MCHC 32.3 RDW 16.3 H Plt Count 264 Seg Neutrophils % Lymphocytes % Monocytes % Eosinophils % Basophils % Absolute Neutrophils Absolute Lymphocytes Absolute Monocytes Absolute Eosinophils Absolute Basophils Urine Color Urine Appearance Urine pH Ur Specific [place] Urine Protein Urine Glucose (UA) Urine Ketones Urine Blood Urine Nitrite Ur Leukocyte Esterase Blood Type Antibody Screen Assessment and Plan(PN) - Assessment and Plan (1) Vaginal delivery Is this a current diagnosis for this admission?: YesPlan: routine post care anticipate d/c home tomorrow (2) Acute blood loss anemia Is this a current diagnosis for this admission?: Yes - Time Spent with Patient Time with patient: Less than 15 minutes Critical Time spent with patient: Less than 15 minutes Medications reviewed and adjusted accordingly: Yes - Disposition Anticipated Discharge: Home Within: within 24 hours
[2016-09-17] MEDS: SENNOSIDES/DOCUSATE 8.6-50 MG 1 EACH TABLET PO SCH (09:49)
[2016-09-17] MEDS: PRENATAL VITAMIN W-O CA NO5/FE FUMARATE/FA CAPSULE PO SCH (09:49)
[2016-09-17] MEDS: DOCUSATE SODIUM 100 MG CAPSULE PO SCH ×2 (09:49→17:51)
[2016-09-17] MEDS: FERROUS SULFATE 325 MG TABLET PO SCH ×2 (09:49→17:51)
--- NOTE | 2016-09-17 18:00 | L&D Current Admission ---
Current Admit Datetime Report Generated by CPN: 09/17/2016 18:00 ADMISSION INFORMATION Current Admit Date/Time: 09/16/2016 17:43 (09/16/2016 17:37:Katerin Yee RN) Reason for Admission: Rupture of Membranes (09/16/2016 17:37:Katerin Yee RN) Chief Complaint: Suspected Rupture of Membranes (09/16/2016 17:37:Katerin Yee RN) Medications During : Ferrous Sulfate (Iron); Vitamin (09/16/2016 17:37:Katerin Yee RN) EGA per Dates: 39.3 (09/16/2016 17:37:QS system process) Method of Arrival: Ambulatory (09/16/2016 17:37:Katerin Yee RN) Admitted From: Home (09/16/2016 17:37:Katerin Yee RN) Reason for Induction: Not Applicable (09/16/2016 17:37:Katerin Yee RN) Records Available: Yes (09/16/2016 17:37:Katerin Yee RN) General Admission Information: Reviewed; Updated; Confirmed (09/16/2016 17:37:Katerin Yee RN) General Admission Reviewed By: Bony Yee RN (09/16/2016 17:37:Katerin Yee RN) BELONGINGS/ADVANCED DIRECTIVES Valuables/Personal Effects: Cell Phone (09/16/2016 17:37:Katerin Yee RN) Disposition of Belongings: Kept with Patient (09/16/2016 17:37:Katerin Yee RN) Advance Direct for Healthcare: No, and Wants No Information (09/16/2016 17:37:Katerin Yee RN) Durable Power of Transit Driver: No (09/16/2016 17:37:Katerin Yee RN) Living Will: No (09/16/2016 17:37:Katerin Yee RN) Organ Donor: No (09/16/2016 17:37:Katerin Yee RN) Pt Rights Information Given: Yes (09/16/2016 17:37:Katerin Yee RN) Pt Understands Pt Rights: Yes (09/16/2016 17:37:Katerin Yee RN) LEARNING ASSESSMENT Knowledge Level: Understands L_D Process; Understands Care Activities; Had Pre-Hospital Education; Understands Diagnosis (09/16/2016 17:37:Katerin Yee RN) Barriers to Learning: None (09/16/2016 17:37:Katerin Yee RN) Learning Readiness: Motivated (09/16/2016 17:37:Katerin Yee RN) Learns Best By: 1 to 1 Instruction (09/16/2016 17:37:Katerin Yee RN) Learning Needs: Labor and Delivery Process; Pain Management; Symptoms to Report; Treatment Plan; Medication; Diagnosis; Nutrition; Equipment; Infant Care; Community Resources (09/16/2016 17:37:Katerin Yee RN) DOMESTIC VIOLANCE SCREENING Dom Viol Threatened/Hurt: No (09/16/2016 17:37:Katerin Yee RN) Hx of Abuse/Neglect past 2yrs: No (09/16/2016 17:37:Katerin Yee RN) Feel Unsafe Going Home: No (09/16/2016 17:37:Katerin Yee RN) Addt'l Observ Indicating Abuse: No (09/16/2016 17:37:Katerin Yee RN) Reason Unable to Complete Screen: N/A, Screen Completed (09/16/2016 17:37:Katerin Yee RN) Considered Personal Harm/Suicide: No (09/16/2016 17:37:Katerin Yee RN) NUTRITIONAL/FUNCTIONAL SCREENING Problem with Appetite >5 Days: No (09/16/2016 17:37:Katerin Yee RN) Chew/Swallow Difficulties: No (09/16/2016 17:37:Katerin Yee RN) Inappropriate Wt Gain/Loss: No (09/16/2016 17:37:Katerin Yee RN) Presence Skin Breakdown/Ulcer: No (09/16/2016 17:37:Katerin Yee RN) Special Diet: No (09/16/2016 17:37:Katerin Yee RN) Pt Requests Switchboard Operator Assistant Visit: No (09/16/2016 17:37:Katerin Yee RN) Hx of Any of the Following?: N/A (09/16/2016 17:37:Katerin Yee RN) New Diagnosis of: N/A (09/16/2016 17:37:Katerin Yee RN) Requires Assist w/Ambulation: No (09/16/2016 17:37:Katerin Yee RN) Uses Assist Device to Ambulate: No (09/16/2016 17:37:Katerin Yee RN) Pt Requires Help w/ADL's: No (09/16/2016 17:37:Katerin Yee RN)
--- NOTE | 2016-09-17 18:00 | L&D General Admission ---
General Admit Datetime Report Generated by CPN: 09/17/2016 18:00 INFORMATION Patient Age: 31 (02/15/2016 19:58:QS system process) EDC: 09/20/2016 00:00 (08/22/2016 15:38:Hallie Chacko RN) : 3 (08/22/2016 15:38:Hallie Chacko RN) Para: 2 (08/22/2016 17:09:Hallie Chacko RN) Term: 2 (08/22/2016 15:38:Katerin Yee RN) : 0 (08/22/2016 15:38:Katerin Yee RN) Spontaneous Abortions: 0 (08/22/2016 15:38:Katerin Yee RN) Induced Abortions: 0 (08/22/2016 15:38:Katerin Yee RN) Livin (08/22/2016 15:38:Katerin Yee RN) Cesareans: 0 (08/22/2016 15:38:Katerin Yee RN) VBACs: 0 (08/22/2016 15:38:Katerin Yee RN) Ectopic: 0 (08/22/2016 15:38:Katerin Yee RN) Multiple Births: 0 (08/22/2016 15:38:Katerin Yee RN) Baby, Number in Womb: 1 (08/25/2016 17:20:CONCHIS Mccoy) CARE Primary [place]ognos Consultant: [facility] (08/22/2016 15:38:Hallie Chacko RN) Cognos Consultant Other: [facility] (08/22/2016 15:38:Hallie Chacko RN) Adequate Care: Yes (08/22/2016 15:38:Katerin Yee RN) Prepregnancy Weight (lb): 285 (08/22/2016 15:38:Katerin Yee RN) Prepregnancy Weight (kg): 129.5 (08/22/2016 15:38:QS system process) Height (in): 66 (09/17/2016 01:22:QS system process) ALLERGIES Medication Allergy: No (08/22/2016 15:38:Hallie Chacko RN) Medication Allergies: No Known Allergies (09/15/2016) (09/15/2016 21:56:QS system process) Latex Allergy: No Latex Allergies (08/22/2016 15:38:Katerin Yee RN) COMMUNICATION Primary Language: French (08/22/2016 15:38:Hallie Chacko RN) Medical Tx Preferred Language: French (08/22/2016 15:38:Hallie Chcako RN) Communication Barrier(s): None (08/22/2016 15:38:Bettina Cavazos RN) DEMOGRAPHICS Address: [address] [place] [address] [address] [address] (09/01/2016 15:02:QS system process) Zipcode: [address] (09/01/2016 15:02:QS system process) County: [place] (08/22/2016 15:38:Bettina Cavazos RN) Home (08/22/2016 16:22:QS system process) Work (02/15/2016 19:58:QS system process) SSN: [id number] (02/15/2016 19:58:QS system process) Next of Kin Name: CASPER FARRIS (02/15/2016 19:58:QS system process) Next of Kin (02/15/2016 19:58:QS system process) Next of Kin Relationship: MO (02/15/2016 19:58:QS system process) Date of : 1985 (02/15/2016 19:58:QS system process) Marital Status: Single (02/15/2016 19:58:QS system process) Sex: Female (02/15/2016 19:58:QS system process) Race: (02/15/2016 19:58:QS system process) Ethnicity: Non- or (02/15/2016 19:58:QS system process) Yarsanism: None (02/15/2016 19:58:QS system process) FOB Involved: Yes (08/22/2016 15:38:Bettina Cavazos RN) Father of Baby Name: Yaron (08/22/2016 15:38:Bettina Cavazso RN) DRUG AND ALCOHOL USE Alcohol: No (08/22/2016 15:38:Hallie Chacko RN) Cigarettes: Former Smoker. [id number] (08/22/2016 15:38:Hallie Chacko RN) Marijuana: No (08/22/2016 15:38:Hallie Chacko RN) Cocaine: No (08/22/2016 15:38:Hallie Chacko RN) Other Illicit Drugs: No (08/22/2016 15:38:Hallie Chacko RN) VACCINE HISTORY Influenza Vaccine: No (08/22/2016 15:38:Hallie Chacko RN) Pneumococcal Vaccine: No (08/22/2016 15:38:Katerin Yee RN) Tetanus Vaccine: Yes (08/22/2016 15:38:Katerin Yee RN) Tdap Vaccine: No (08/22/2016 15:38:Katerin Yee RN) Hepatitis B Vaccine: Yes (08/22/2016 15:38:Katerin Yee RN) Emt I/85: [facility] (08/22/2016 15:38:Katerin Yee RN) Feeding Preference: Formula (08/22/2016 15:38:Hallie Chacko RN) Benefit of Breast Feed Discussed: Yes (08/22/2016 15:38:Hallie Chacko RN) Circumcision: Yes (08/22/2016 15:38:Hallie Chacko RN) Classes Attended: No (08/22/2016 15:38:Hallie Chacko RN) Tubal Authorization Signed: N/A (08/22/2016 15:38:Hallie Chacko RN) Consent: N/A (08/22/2016 15:38:Hallie Chacko RN) Consent Signed: N/A (08/22/2016 15:38:Hallie Chacko RN) Pain Management Plans: Epidural (08/22/2016 15:38:Hallie Chacko RN) Plans for Labor and Delivery: None (08/22/2016 15:38:Katerin Yee RN) Support Person: Yaron [place] (08/22/2016 15:38:Hallie Chacko RN) Support Person Relationship: Significant Other (08/22/2016 15:38:Hallie Chacko RN) Cultural/Spritual Practice: No (08/22/2016 15:38:Hallie Chacko RN) Spir/Cult Dietary Needs: No (08/22/2016 15:38:Hallie Chacko RN) LIVING SITUATION/DISCHARGE PLAN Living Arrangements: Apartment (08/22/2016 15:38:Hallie Chacko RN) Adequate Access to:: Electric; Heat; Refrigeration; Plumbing/Running water; Phone; Transportation (08/22/2016 15:38:Hallie Chacko RN) WIC Program: Yes (08/22/2016 15:38:Hallie Chacko RN) Discharge Counterintelligence Analyst Person: Yaron Canada (08/22/2016 15:38:Hallie Chacko RN) Person to Help after Discharge: Yaron Canada (08/22/2016 15:38:Hallie Chacko RN) Currently Using Commun Resources: Yes (08/22/2016 15:38:Hallie Chacko RN) Specify Current Resource Used: Medicaid (08/22/2016 15:38:Hallie Chacko RN) Outside Agency/Implementation Consultant: Yes (08/22/2016 15:38:Katerin Yee RN) Car Seat for Discharge: Yes (08/22/2016 15:38:Hallie Chacko RN) Adoption Requested: No (08/22/2016 15:38:Hallie Chacko RN) Pt Contact w/ Post : N/A (08/22/2016 15:38:Hallie Chacko RN) LABS Blood Type: A Positive (08/22/2016 15:38:Hallie Chacko RN) Antibody Screen: neg (08/22/2016 15:38:Hallie Chacko RN) Rho(G) this : Not Applicable (08/22/2016 15:38:Bettina Cavazos RN) Hemoglobin: 8.8 L (09/17/2016 07:22:QS system process) Hematocrit: 27.3 L (09/17/2016 07:22:QS system process) MCV: 76 L (09/17/2016 07:22:QS system process) Group Beta Strep: positive (08/22/2016 15:38:Maritza Winkler RN) Gonorrhea: Negative (08/22/2016 15:38:Maritza Winkler RN) Chlamydia: Negative (08/22/2016 15:38:Maritza Winkler RN) RPR/VDRL: Nonreactive (08/22/2016 15:38:Hallie Chacko RN) HIV Exposure Test: Negative (08/22/2016 15:38:Hallie Chacko RN) Hepatitis B: Negative (08/22/2016 15:38:Hallie Chacko RN) Rubella: Immune (08/22/2016 15:38:Hallie Chacko RN) Varicella: Non Susceptible (08/22/2016 15:38:Hallie Chacko RN) OB/PREVIOUS HISTORY Previous Procedures: Ultrasound; NST (08/22/2016 15:38:Hallie Chacko RN) Current Procedures: Ultrasound; NST (08/22/2016 15:38:Hallie Chacko RN) History of Previous : No (08/22/2016 15:38:Hallie Chacko RN) History of Gestational Diabetes: No (08/22/2016 15:38:Hallie Chacko RN) History of PIH: No (08/22/2016 15:38:Hallie Chacko RN) History of Incompetent Cervix: No (08/22/2016 15:38:Hallie Chacko RN) History of Placenta Previa/Abrup: No (08/22/2016 15:38:Hallie Chacko RN) History of Macrosomia: No (08/22/2016 15:38:Hallie Chacko RN) History of IUGR: No (08/22/2016 15:38:Hallie Chacko RN) History of Hemorrhage: No (08/22/2016 15:38:Hallie Chacko RN) History of Loss/Stillborn: No (08/22/2016 15:38:Hallie Chacko RN) History of : No (08/22/2016 15:38:Hallie Chacko RN) History of D (Rh) Sensitization: No (08/22/2016 15:38:Hallie Chacko RN) History Recurrent Loss/Stillborn: No (08/22/2016 15:38:Hallie Chacko RN) History Depression/PP Depression: No (08/22/2016 15:38:Hallie Chacko RN) History of Uterine Anomaly/BARI: No (08/22/2016 15:38:Hallie Chacko RN) History of Infertility: No (08/22/2016 15:38:Hallie Chacko RN) History of ART Treatment: No (08/22/2016 15:38:Hallie Chacko RN) History of BARI: No (08/22/2016 15:38:Hallie Chacko RN) Comments Obstetrical History: G1- @ 37wks G2- @ 41wks G3- Current (08/22/2016 15:38:Katerin Yee RN) MEDICAL HISTORY Med Hx Diabetes: No (08/22/2016 15:38:Hallie Chacko RN) Med Hx Hypertension: No (08/22/2016 15:38:Hallie Chacko RN) Med Hx Heart Disease: No (08/22/2016 15:38:Hallie Chacko RN) Med Hx Autoimmune Disorder: No (08/22/2016 15:38:Hallie Chacko RN) Med Hx Kidney Disease/UTI: No (08/22/2016 15:38:Hallie Chacko RN) Med Hx Neurologic/Epilepsy: No (08/22/2016 15:38:Hallie Chacko RN) Med Hx Psychiatric Disorders: No (08/22/2016 15:38:Hallie Chacko RN) Med Hx Hepatitis/Liver Disease: No (08/22/2016 15:38:Hallie Chacko RN) Med Hx Varicosities/Phlebitis: No (08/22/2016 15:38:Hallie Chacko RN) Med Hx Thyroid Dysfunction: No (08/22/2016 15:38:Hallie Chacko RN) Med Hx Trauma/Violence: No (08/22/2016 15:38:Hallie Chacko RN) Med Hx Blood Transfusion: No (08/22/2016 15:38:Hallie Chacko RN) Med Hx Pulmonary (Asthma,TB): No (08/22/2016 15:38:Hallie Chacko RN) Med Hx Breast: No (08/22/2016 15:38:Hallie Chacko RN) Med Hx MANAGER DEVELOPMENT Surgery: No (08/22/2016 15:38:Hallie Chacko RN) Med Hx Hospitalization/Surgery: Yes (08/22/2016 15:38:Hallie Chacko RN) Med Hx Anesthetic Complications: No (08/22/2016 15:38:Hallie Chacko RN) Med Hx Abnormal Pap Smear: No (08/22/2016 15:38:Hallie Chacko RN) Other Medical Diseases: No (08/22/2016 15:38:Hallie Chacko RN) Med Hx Significant Family Hx: No (08/22/2016 15:38:Hallie Chacko RN) Details of Med/Surg Hx: anemia during (08/22/2016 15:38:Hallie Chacko RN) INFECTIOUS HISTORY Inf Hx Gonorrhea: No (08/22/2016 15:38:Hallie Chacko RN) Inf Hx Chlamydia: No (08/22/2016 15:38:Hallie Chacko RN) Inf Hx Syphilis: No (08/22/2016 15:38:Hallie Chacko RN) Inf Hx HIV/AIDS: No (08/22/2016 15:38:Hallie Chacko RN) Inf Hx Human Papilloma Virus: No (08/22/2016 15:38:Hallie Chacko RN) Inf Hx Pt/Partner Genital Herpes: No (08/22/2016 15:38:Hallie Chacko RN) Inf Hx Tuberculosis/Exposure: No (08/22/2016 15:38:Hallie Chacko RN) Inf Hx Hepatitis B,C: No (08/22/2016 15:38:Hallie Chacko RN) Inf Hx Rash or Viral Illness: No (08/22/2016 15:38:Hallie Chacko RN) GENETIC HISTORY Gen Hx Age >=35 at ERIK: No (08/22/2016 15:38:Hallie Chacko RN) Gen Hx Thalassemia: No (08/22/2016 15:38:Hallie Chacko RN) Gen Hx Congenital Heart Defect: No (08/22/2016 15:38:Hallie Chacko RN) Gen Hx Neural Tube Defect: No (08/22/2016 15:38:Hallie Chacko RN) Gen Hx Down's Syndrome: No (08/22/2016 15:38:Hallie Chacko RN) Gen Hx David-Sachs: No (08/22/2016 15:38:Hallie Chacko RN) Gen Hx Damien: No (08/22/2016 15:38:Hallie Chacko RN) Gen Hx Familial Dysautonomia: No (08/22/2016 15:38:Hallie Chacko RN) Gen Hx Sickle Cell Disease/Trait: No (08/22/2016 15:38:Hallie Chacko RN) Gen Hx Hemophilia/Blood Disorder: No (08/22/2016 15:38:Hallie Chacko RN) Gen Hx Muscular Dystrophy: No (08/22/2016 15:38:Hallie Chacko RN) Gen Hx Cystic Fibrosis: No (08/22/2016 15:38:Hallie Chacko RN) Gen Hx [place] Chorea: No (08/22/2016 15:38:Hallie Chacko RN) Gen Hx Mental Retardation/Autism: No (08/22/2016 15:38:Hallie Chacko RN) Gen Hx Tested for Fragile X: No (08/22/2016 15:38:Hallie Chacko RN) Gen Hx Other Inher/Chromosomal: No (08/22/2016 15:38:Hallie Chacko RN) Gen Hx Maternal Metabolic DO: No (08/22/2016 15:38:Hallie Chacko RN) Gen Hx Pt Father or FOB Defect: No (08/22/2016 15:38:Hallie Chacko RN) Gen Hx Other Genetic History: No (08/22/2016 15:38:Hallie Chacko RN) Gen Hx Drugs/Meds since LMP: No (08/22/2016 15:38:Hallie Chacko RN)
--- NOTE | 2016-09-17 18:15 | L&D Care Plan ---
LD CARE PLANS Datetime Report Generated by CPN: 09/17/2016 18:15 Datetime: 09/16/2016 17:31 Pain State: Risk For (Bettina Cavazos RN) Related To: Labor and Delivery Process; Treatment and Procedures; Post (Bettina Cavazos RN) Goal(s): Patients Pain will be Assessed and Managed; Patient will Verbalize Adequate Relief of Pain or the Ability to [place] with Current Pain (Bettina Cavazos RN) Interventions: Assess Pain Severity on Scale of 0 (None) to 5 (Severe); Assess Type, Location and Intensity of Pain Each Time Client Reports Discomfort and Notify Provider if Unusal Pain Develops; Encourage Proper Breathing and Relaxation Techniques; Offer Alternatives Such as Repositioning, Calm Environment, Massages, Diversional Activities, Ice Pack, Splinting, and Ambulation; Administer Analgesics as Ordered; Assist with Epidural Placement as Appropriate; Evaluate Therapeutic Effectiveness of Medication and Treatments (Bettina Cavazos RN) Outcome: Patient will Report Absence or Relief of Pain Consistent with Established Pain Goal (Bettina Cavazos RN) Status: Ongoing (Bettina Cavazos RN) Outcome: Patient will have a Decrease in Signs and Symptoms of Discomfort (Bettina Cavazos RN) Status: Ongoing (Bettina Cavazos RN) Outcome: Pain will be Controlled During Procedures (Bettina Cavazos RN) Status: Ongoing (Bettina Cavazos RN) Anxiety State: Risk For (Bettina Cavazos RN) Related To: Labor and Delivery Process (Bettina Cavazos RN) Goal(s): Patient will have Decreased Anxiety and be able to Function at Acceptable Levels (Bettina Cavazos RN) Interventions: Assess Verbal and Nonverbal Behavioral Indicators of Anxiety; Assist Patient to Identify and Verbalize Symptoms of Anxiety; Identify and Demonstrate Techniques to Control Anxiety; Provide Theraputic Touch for the Patient; Explain to Patient, Using a Calm Reassuring Approach and Nonmedical Terms, All Activities, Procedures, and Concerns; Instruct Patient and Family about Post Discharge Care, Limitations, Symptoms to Report and Resources Available (Bettina Cavazos, MAILE) Outcome: Patient will Identify, Verbalize and Demonstrate Techniques to Control Anxiety (Bettina Cavazos RN) Status: Ongoing (Bettina Cavazos RN) Outcome: Patient's Posture, Facial Expressions, Gestures and Activity Level will Reflect Decreased Anxiety (Bettina Cavazos RN) Status: Ongoing (Bettina Cavazos RN) Outcome: Patient will Verbalize a Sense of Control and/or Acceptance of the Situation (Bettina Cavazos RN) Status: Ongoing (Bettina Cavazos RN) Infection State: Risk For (Bettina Cavazos RN) Related To: Premature/Prolonged Rupture of Membranes; Invasive Procedures (Bettina Cavazos RN) Goal(s): The Patient will be Free of Infection, Vital Signs Stable and Lab Work within Normal Parameters (Bettina Cavazos RN) Interventions: Instruct and Reinforce Proper Handwashing, Hygiene, and Care Techniques to Patient and Family; Monitor Vital Signs; Monitor Patient for the Following Signs of Infection: Fever, Abdominal Tenderness, Unusual Discharge; Monitor Aminiotic Fluid, Urine and Lochia for Color and Odor; Observe Wounds, Incisions and Invasive Line Sites for Redness, Drainage and Edema; Assess IV Sites per Hospital Policy; Monitor Lab and Test Results and Notify Provider of Abnormal Findings; Assess Nutritional Status and Promote Good Nutrition (Bettina Cavazos RN) Outcome: Patient will Remain Free of Infection (Bettina Cavazos RN) Status: Ongoing (Bettina Cavazos RN) Outcome: Infection will be Recognized Early to Allow for Prompt Treatment (Bettina Cavazos RN) Status: Ongoing (Bettina Cavazos RN) Outcome: Patient will have Vital Signs Within Expected Range (Bettina Cavazos RN) Status: Ongoing (Bettina Cavazos RN)
[2016-09-18] MEDS: IBUPROFEN 800 MG TABLET PO SCH ×2 (05:04→13:49)
--- NOTE | 2016-09-18 06:00 | L&D General Admission ---
General Admit Datetime Report Generated by CPN: 09/18/2016 06:00 INFORMATION Patient Age: 31 (02/15/2016 19:58:QS system process) EDC: 09/20/2016 00:00 (08/22/2016 15:38:Hallie Chacko RN) : 3 (08/22/2016 15:38:Hallie Chacko RN) Para: 2 (08/22/2016 17:09:Hallie Chacko RN) Term: 2 (08/22/2016 15:38:Katerin Yee RN) : 0 (08/22/2016 15:38:Katerin Yee RN) Spontaneous Abortions: 0 (08/22/2016 15:38:Katerin Yee RN) Induced Abortions: 0 (08/22/2016 15:38:Katerin Yee RN) Livin (08/22/2016 15:38:Katerin Yee RN) Cesareans: 0 (08/22/2016 15:38:Katerin Yee RN) VBACs: 0 (08/22/2016 15:38:Katerin Yee RN) Ectopic: 0 (08/22/2016 15:38:Katerin Yee RN) Multiple Births: 0 (08/22/2016 15:38:Katerin Yee RN) Baby, Number in Womb: 1 (08/25/2016 17:20:CONCHIS Mccoy) CARE Primary Banquet Houseperson: [facility] (08/22/2016 15:38:Hallie Chacko RN) Banquet Houseperson Other: [facility] (08/22/2016 15:38:Hallie Chacko RN) Adequate Care: Yes (08/22/2016 15:38:Katerin eYe RN) Prepregnancy Weight (lb): 285 (08/22/2016 15:38:Katerin Yee RN) Prepregnancy Weight (kg): 129.5 (08/22/2016 15:38:QS system process) Height (in): 66 (09/17/2016 01:22:QS system process) ALLERGIES Medication Allergy: No (08/22/2016 15:38:Hallie Chacko RN) Medication Allergies: No Known Allergies (09/15/2016) (09/15/2016 21:56:QS system process) Latex Allergy: No Latex Allergies (08/22/2016 15:38:Katerin Yee RN) COMMUNICATION Primary Language: Pashto (08/22/2016 15:38:Hallie Chacko RN) Medical Tx Preferred Language: Pashto (08/22/2016 15:38:Hallie Chacko RN) Communication Barrier(s): None (08/22/2016 15:38:Bettina Cavazos RN) DEMOGRAPHICS Address: [address] [place] [address] [address] (09/01/2016 15:02:QS system process) Zipcode: [address] (09/01/2016 15:02:QS system process) County: [place] (08/22/2016 15:38:Bettina Cavazos RN) Home (08/22/2016 16:22:QS system process) Work (02/15/2016 19:58:QS system process) SSN: [id number] (02/15/2016 19:58:QS system process) Next of Kin Name: CASPER FARRIS (02/15/2016 19:58:QS system process) Next of Kin (02/15/2016 19:58:QS system process) Next of Kin Relationship: MO (02/15/2016 19:58:QS system process) Date of : 1985 (02/15/2016 19:58:QS system process) Marital Status: Single (02/15/2016 19:58:QS system process) Sex: Female (02/15/2016 19:58:QS system process) Race: (02/15/2016 19:58:QS system process) Ethnicity: Non- or (02/15/2016 19:58:QS system process) Pentecostal: None (02/15/2016 19:58:QS system process) FOB Involved: Yes (08/22/2016 15:38:Bettina Cavazos RN) Father of Baby Name: Yaorn (08/22/2016 15:38:Bettina Cavazos RN) DRUG AND ALCOHOL USE Alcohol: No (08/22/2016 15:38:Hallie Chacko RN) Cigarettes: Former Smoker. [id number] (08/22/2016 15:38:Hallie Chacko RN) Marijuana: No (08/22/2016 15:38:Hallie Chacko RN) Cocaine: No (08/22/2016 15:38:Hallie Chacko RN) Other Illicit Drugs: No (08/22/2016 15:38:Hallie Chacko RN) VACCINE HISTORY Influenza Vaccine: No (08/22/2016 15:38:Hallie Chacko RN) Pneumococcal Vaccine: No (08/22/2016 15:38:Katerin Yee RN) Tetanus Vaccine: Yes (08/22/2016 15:38:Katerin Yee RN) Tdap Vaccine: No (08/22/2016 15:38:Katerin Yee RN) Hepatitis B Vaccine: Yes (08/22/2016 15:38:Katerin Yee RN) Stationary Engineer Refrigeration: [facility] (08/22/2016 15:38:Katerin Yee RN) Feeding Preference: Formula (08/22/2016 15:38:Hallie Chacko RN) Benefit of Breast Feed Discussed: Yes (08/22/2016 15:38:Hallie Chacko RN) Circumcision: Yes (08/22/2016 15:38:Hallie Chacko RN) Classes Attended: No (08/22/2016 15:38:Hallie Chacko RN) Tubal Authorization Signed: N/A (08/22/2016 15:38:Hallie Chacko RN) Consent: N/A (08/22/2016 15:38:Hallie Chacko RN) Consent Signed: N/A (08/22/2016 15:38:Hallie Chacko RN) Pain Management Plans: Epidural (08/22/2016 15:38:Hallie Chacko RN) Plans for Labor and Delivery: None (08/22/2016 15:38:Katerin Yee RN) Support Person: Yaron Canada (08/22/2016 15:38:Hallie Chacko RN) Support Person Relationship: Significant Other (08/22/2016 15:38:Hallie Chacko RN) Cultural/Spritual Practice: No (08/22/2016 15:38:Hallie Chacko RN) Spir/Cult Dietary Needs: No (08/22/2016 15:38:Hallie Chacko RN) LIVING SITUATION/DISCHARGE PLAN Living Arrangements: Apartment (08/22/2016 15:38:Hallie Chacko RN) Adequate Access to:: Electric; Heat; Refrigeration; Plumbing/Running water; Phone; Transportation (08/22/2016 15:38:Hallie Chacko RN) WIC Program: Yes (08/22/2016 15:38:Hallie Chacko RN) Discharge Sales Estimator Person: Yaron Canada (08/22/2016 15:38:Hallie Chacko RN) Person to Help after Discharge: Yaron Canada (08/22/2016 15:38:Hallie Chacko RN) Currently Using Commun Resources: Yes (08/22/2016 15:38:Hallie Chacko RN) Specify Current Resource Used: Medicaid (08/22/2016 15:38:Hallie Chacko RN) Outside Agency/Warehouse Distribution Associate: Yes (08/22/2016 15:38:Katerin Yee RN) Car Seat for Discharge: Yes (08/22/2016 15:38:Hallie Chacko RN) Adoption Requested: No (08/22/2016 15:38:Hallie Chacko RN) Pt Contact w/ Post : N/A (08/22/2016 15:38:Hallie Chacko RN) LABS Blood Type: A Positive (08/22/2016 15:38:Hallie Chacko RN) Antibody Screen: neg (08/22/2016 15:38:Hallie Chacko RN) Rho(G) this : Not Applicable (08/22/2016 15:38:Bettina Cavazos RN) Hemoglobin: 8.8 L (09/17/2016 07:22:QS system process) Hematocrit: 27.3 L (09/17/2016 07:22:QS system process) MCV: 76 L (09/17/2016 07:22:QS system process) Group Beta Strep: positive (08/22/2016 15:38:Maritza Winkler RN) Gonorrhea: Negative (08/22/2016 15:38:Maritza Winkler RN) Chlamydia: Negative (08/22/2016 15:38:Maritza Winkler RN) RPR/VDRL: Nonreactive (08/22/2016 15:38:Hallie Chacko RN) HIV Exposure Test: Negative (08/22/2016 15:38:Hallie Chacko RN) Hepatitis B: Negative (08/22/2016 15:38:Hallie Chacko RN) Rubella: Immune (08/22/2016 15:38:Hallie Chacko RN) Varicella: Non Susceptible (08/22/2016 15:38:Hallie Chacko RN) OB/PREVIOUS HISTORY Previous Procedures: Ultrasound; NST (08/22/2016 15:38:Hallie Chacko RN) Current Procedures: Ultrasound; NST (08/22/2016 15:38:Hallie Chacko RN) History of Previous : No (08/22/2016 15:38:Hallie Chacko RN) History of Gestational Diabetes: No (08/22/2016 15:38:Hallie Chacko RN) History of PIH: No (08/22/2016 15:38:Hallie Chacko RN) History of Incompetent Cervix: No (08/22/2016 15:38:Hallie Chacko RN) History of Placenta Previa/Abrup: No (08/22/2016 15:38:Hallie Chacko RN) History of Macrosomia: No (08/22/2016 15:38:Hallie Chacko RN) History of IUGR: No (08/22/2016 15:38:Hallie Chacko RN) History of Hemorrhage: No (08/22/2016 15:38:Hallie Chacko RN) History of Loss/Stillborn: No (08/22/2016 15:38:Hallie Chacko RN) History of : No (08/22/2016 15:38:Hallie Chacko RN) History of D (Rh) Sensitization: No (08/22/2016 15:38:Hallie Chacko RN) History Recurrent Loss/Stillborn: No (08/22/2016 15:38:Hallie Chacko RN) History Depression/PP Depression: No (08/22/2016 15:38:Hallie Chacko RN) History of Uterine Anomaly/BARI: No (08/22/2016 15:38:Hallie Chacko RN) History of Infertility: No (08/22/2016 15:38:Hallie Chacko RN) History of ART Treatment: No (08/22/2016 15:38:Hallie Chacko RN) History of BARI: No (08/22/2016 15:38:Hallie Chacko RN) Comments Obstetrical History: G1- @ 37wks G2- @ 41wks G3- Current (08/22/2016 15:38:Katerin Yee RN) MEDICAL HISTORY Med Hx Diabetes: No (08/22/2016 15:38:Hallie Chacko RN) Med Hx Hypertension: No (08/22/2016 15:38:Hallie Chacko RN) Med Hx Heart Disease: No (08/22/2016 15:38:Hallie Chacko RN) Med Hx Autoimmune Disorder: No (08/22/2016 15:38:Hallie Chacko RN) Med Hx Kidney Disease/UTI: No (08/22/2016 15:38:Hallie Chacko RN) Med Hx Neurologic/Epilepsy: No (08/22/2016 15:38:Hallie Chacko RN) Med Hx Psychiatric Disorders: No (08/22/2016 15:38:Hallie Chacko RN) Med Hx Hepatitis/Liver Disease: No (08/22/2016 15:38:Hallie Chacko RN) Med Hx Varicosities/Phlebitis: No (08/22/2016 15:38:Hallie Chacko RN) Med Hx Thyroid Dysfunction: No (08/22/2016 15:38:Hallie Chacko RN) Med Hx Trauma/Violence: No (08/22/2016 15:38:Hallie Chacko RN) Med Hx Blood Transfusion: No (08/22/2016 15:38:Hallie Chacko RN) Med Hx Pulmonary (Asthma,TB): No (08/22/2016 15:38:Hallie Chacko RN) Med Hx Breast: No (08/22/2016 15:38:Hallie Chacko RN) Med Hx NUT PROCESSING SUPERVISOR Surgery: No (08/22/2016 15:38:Hallie Chacko RN) Med Hx Hospitalization/Surgery: Yes (08/22/2016 15:38:Hallie Chacko RN) Med Hx Anesthetic Complications: No (08/22/2016 15:38:Hallie Chacko RN) Med Hx Abnormal Pap Smear: No (08/22/2016 15:38:Hallie Chacko RN) Other Medical Diseases: No (08/22/2016 15:38:Hallie Chacko RN) Med Hx Significant Family Hx: No (08/22/2016 15:38:Hallie Chacko RN) Details of Med/Surg Hx: anemia during (08/22/2016 15:38:Hallie Chacko RN) INFECTIOUS HISTORY Inf Hx Gonorrhea: No (08/22/2016 15:38:Hallie Chacko RN) Inf Hx Chlamydia: No (08/22/2016 15:38:Hallie Chacko RN) Inf Hx Syphilis: No (08/22/2016 15:38:Hallie Chacko RN) Inf Hx HIV/AIDS: No (08/22/2016 15:38:Hallie Chacko RN) Inf Hx Human Papilloma Virus: No (08/22/2016 15:38:Hallie Chacko RN) Inf Hx Pt/Partner Genital Herpes: No (08/22/2016 15:38:Hallie Chacko RN) Inf Hx Tuberculosis/Exposure: No (08/22/2016 15:38:Hallie Chacko RN) Inf Hx Hepatitis B,C: No (08/22/2016 15:38:Hallie Chacko RN) Inf Hx Rash or Viral Illness: No (08/22/2016 15:38:Hallie Chacko RN) GENETIC HISTORY Gen Hx Age >=35 at ERIK: No (08/22/2016 15:38:Hallie Chacko RN) Gen Hx Thalassemia: No (08/22/2016 15:38:Hallie Chacko RN) Gen Hx Congenital Heart Defect: No (08/22/2016 15:38:Hallie Chacko RN) Gen Hx Neural Tube Defect: No (08/22/2016 15:38:Hallie Chacko RN) Gen Hx Down's Syndrome: No (08/22/2016 15:38:Hallie Chacko RN) Gen Hx David-Sachs: No (08/22/2016 15:38:Hallie Chacko RN) Gen Hx Damien: No (08/22/2016 15:38:Hallie Chacko RN) Gen Hx Familial Dysautonomia: No (08/22/2016 15:38:Hallie Chacko RN) Gen Hx Sickle Cell Disease/Trait: No (08/22/2016 15:38:Hallie Chacko RN) Gen Hx Hemophilia/Blood Disorder: No (08/22/2016 15:38:Hallie Chacko RN) Gen Hx Muscular Dystrophy: No (08/22/2016 15:38:Hallie Chacko RN) Gen Hx Cystic Fibrosis: No (08/22/2016 15:38:Hallie Chacko RN) Gen Hx Huntingtons Chorea: No (08/22/2016 15:38:Hallie Chacko RN) Gen Hx Mental Retardation/Autism: No (08/22/2016 15:38:Hallie Chacko RN) Gen Hx Tested for Fragile X: No (08/22/2016 15:38:Hallie Chacko RN) Gen Hx Other Inher/Chromosomal: No (08/22/2016 15:38:Hallie Chacko RN) Gen Hx Maternal Metabolic DO: No (08/22/2016 15:38:Hallie Chacko RN) Gen Hx Pt Father or FOB Defect: No (08/22/2016 15:38:Hallie Chacko RN) Gen Hx Other Genetic History: No (08/22/2016 15:38:Hallie Chacko RN) Gen Hx Drugs/Meds since LMP: No (08/22/2016 15:38:Hallie Chacko RN)
--- NOTE | 2016-09-18 06:15 | L&D Care Plan ---
LD CARE PLANS Datetime Report Generated by CPN: 09/18/2016 06:15 Datetime: 09/16/2016 17:31 State: Risk For (Bettina Cavazos RN) Related To: Labor and Delivery Process; Treatment and Procedures; Post (Bettina Cavazos RN) Goal(s): Patients Pain will be Assessed and Managed; Patient will Verbalize Adequate Relief of Pain or the Ability to [place] with Current Pain (Bettina Cavazos RN) Interventions: Assess Pain Severity on Scale of 0 (None) to 5 (Severe); Assess Type, Location and Intensity of Pain Each Time Client Reports Discomfort and Notify Provider if Unusal Pain Develops; Encourage Proper Breathing and Relaxation Techniques; Offer Alternatives Such as Repositioning, Calm Environment, Massages, Diversional Activities, Ice Pack, Splinting, and Ambulation; Administer Analgesics as Ordered; Assist with Epidural Placement as Appropriate; Evaluate Therapeutic Effectiveness of Medication and Treatments (Bettina Cavazos RN) Outcome: Patient will Report Absence or Relief of Pain Consistent with Established Pain Goal (Bettina Cavazos RN) Status: Ongoing (Bettina Cavazos RN) Outcome: Patient will have a Decrease in Signs and Symptoms of Discomfort (Bettina Cavazos RN) Status: Ongoing (Bettina Cavazos RN) Outcome: Pain will be Controlled During Procedures (Bettina Cavazos RN) Status: Ongoing (Bettina Cavazos RN) State: Risk For (Bettina Cavazos RN) Related To: Labor and Delivery Process (Bettina Cavazos RN) Goal(s): Patient will have Decreased Anxiety and be able to Function at Acceptable Levels (Bettina Cavazos RN) Interventions: Assess Verbal and Nonverbal Behavioral Indicators of Anxiety; Assist Patient to Identify and Verbalize Symptoms of Anxiety; Identify and Demonstrate Techniques to Control Anxiety; Provide Theraputic Touch for the Patient; Explain to Patient, Using a Calm Reassuring Approach and Nonmedical Terms, All Activities, Procedures, and Concerns; Instruct Patient and Family about Post Discharge Care, Limitations, Symptoms to Report and Resources Available (Bettina Cavazos RN) Outcome: Patient will Identify, Verbalize and Demonstrate Techniques to Control Anxiety (Bettina Cavazos RN) Status: Ongoing (Bettina Cavazos RN) Outcome: Patient's Posture, Facial Expressions, Gestures and Activity Level will Reflect Decreased Anxiety (Bettina Cavazos RN) Status: Ongoing (Bettina Cavazos RN) Outcome: Patient will Verbalize a Sense of Control and/or Acceptance of the Situation (Bettina Cavazos RN) Status: Ongoing (Bettina Cavazos RN) State: Risk For (Bettina Cavazos RN) Related To: Premature/Prolonged Rupture of Membranes; Invasive Procedures (Bettina Cavazos RN) Goal(s): The Patient will be Free of Infection, Vital Signs Stable and Lab Work within Normal Parameters (Bettina Cavazos RN) Interventions: Instruct and Reinforce Proper Handwashing, Hygiene, and Care Techniques to Patient and Family; Monitor Vital Signs; Monitor Patient for the Following Signs of Infection: Fever, Abdominal Tenderness, Unusual Discharge; Monitor Aminiotic Fluid, Urine and Lochia for Color and Odor; Observe Wounds, Incisions and Invasive Line Sites for Redness, Drainage and Edema; Assess IV Sites per Hospital Policy; Monitor Lab and Test Results and Notify Provider of Abnormal Findings; Assess Nutritional Status and Promote Good Nutrition (Bettina Cavazos RN) Outcome: Patient will Remain Free of Infection (Bettina Cavazos RN) Status: Ongoing (Bettina Cavazos RN) Outcome: Infection will be Recognized Early to Allow for Prompt Treatment (Bettina Cavazos RN) Status: Ongoing (Bettina Cavazos RN) Outcome: Patient will have Vital Signs Within Expected Range (Bettina Cavazos RN) Status: Ongoing (Bettina Cavazos RN)
[2016-09-18 09:14] VITALS: BP 126/74
[2016-09-18] MEDS: DOCUSATE SODIUM 100 MG CAPSULE PO SCH ×2 (10:07→18:30)
[2016-09-18] MEDS: FERROUS SULFATE 325 MG TABLET PO SCH ×2 (10:07→18:30)
[2016-09-18] MEDS: PRENATAL VITAMIN W-O CA NO5/FE FUMARATE/FA CAPSULE PO SCH (10:07)
[2016-09-18] MEDS: SENNOSIDES/DOCUSATE 8.6-50 MG 1 EACH TABLET PO SCH (10:07)
--- NOTE | 2016-09-18 10:24 | PDOC DISCHARGE SUMMARY ---
Final Diagnosis Discharge Date: 09/18/16 - Final Diagnosis (2) Vaginal delivery Is this a current diagnosis for this admission?: Yes Discharge Data - Discharge Medication Home Medications: Ferrous Sulfate [Iron] 325 mg PO DAILY 08/22/16 Vit/Iron Fumarate/FA [ Tablet] 1 each PO DAILY 08/22/16 Reason(s) for Admission: Onset of Labor Procedures: None Intrapartum Procedure(s): Spontaneous Vaginal Delivery - Diagnosis Test Laboratory: Temp Pulse Resp BP Pulse Ox 98.0 F 62 16 126/74 H 100 09/18/16 08:41 09/18/16 08:41 09/18/16 08:41 09/18/16 08:41 09/18/16 08:41 09/16/16 09/16/16 09/17/16 17:20 17:46 07:22 RBC 3.79 3.60 L Hgb 9.3 L 8.8 L Hct 28.9 L 27.3 L Urine Opiates Screen NEGATIVE - Discharge information/Instructions Discharge Activity: Activity As Tolerated, No Lifting Over 10 Pounds, Pelvic Rest, No tub bath Discharge Diet: Regular Disposition: HOME, SELF-CARE Follow up with: [facility] in: 4
== END 2016-09-18 20:40 | disposition home or self-care (01) | DRG 775 ==
LOC: LC 17:12 → LR 17:26 → 2S 09-17 01:22
PROVIDERS: ADMIT Obstetrics & Gynecology; ATTEND Obstetrics & Gynecology
PROC: 10E0XZZ Delivery of Products of Conception, External Approach (ICD-10-PCS; principal; 2016-09-16)
PROC: 4A1HXCZ Monitoring of Products of Conception, Cardiac Rate, External Approach (ICD-10-PCS; 2016-09-16)
DX: O42.02 Full-term premature rupture of membranes, onset of labor within 24 hours of rupture (principal); D62 Acute posthemorrhagic anemia; O99.02 Anemia complicating childbirth; O99.824 Streptococcus B carrier state complicating childbirth; O69.81X0 Labor and delivery complicated by cord around neck, without compression, not applicable or unspecified; Z87.891 Personal history of nicotine dependence; Z3A.39 39 weeks gestation of pregnancy; Z37.0 Single live birth
CPT/HCPCS: 36415; 80307; 81005; 85025; 85027; 86592; 86850; 86900; 86901; J2300; J2540; J2550; J2590; J3490

== ENCOUNTER 2017-09-18 19:04 | Emergency (ER) | payer SELFPAY ==
--- NOTE | 2017-09-18 19:34 | ER Document Report ---
ED Medical Screen (RME) - General Chief Complaint: Abdominal Pain Stated Complaint: ABDOMINAL PAIN Time Seen by Provider: 09/18/17 19:28 Notes: RME DISCLOSURE I have seen this patient as part of a Rapid Medical Evaluation and, if applicable, placed any initially appropriate orders. The patient will be seen and fully evaluated, including a full history and physical exam, by a provider ( in Main ED or Fast Track) when a room becomes available. 32-year-old female here with complaints of lower and upper abdominal pain as well as chest pain shortness of breath ongoing since earlier today. The pain is not worse with breathing or exertion. The pain does radiate through to her back. She denies any prior history of pancreatitis. No dysuria hematuria frequency hesitancy fevers chills nausea vomiting diarrhea. She has not had a bowel movement in 2 days however she says this is normal for her. TRAVEL OUTSIDE OF THE [place] IN LAST 30 DAYS: No - Related Data Allergies/Adverse Reactions: No Known Allergies Allergy (Verified 09/22/16 13:30) Past Medical History - Social History Frequency of alcohol use: Occasional Family history: DM, Hypertension - Past Medical History Cardiac Medical History: Reports: Hx Hypertension - during Denies: Hx Congestive Heart Failure, Hx Heart Attack Pulmonary Medical History: Denies: Hx Asthma, Hx Bronchitis, Hx COPD, Hx Pneumonia, Hx Tuberculosis Neurological Medical History: Denies: Hx Seizures Renal/ Medical History: Denies: Hx End Stage Renal Disease, Hx Kidney Stones, Hx Peritoneal Dialysis GI Medical History: Denies: Hx Cirrhosis, Hx Gastroesophageal Reflux Disease, Hx Ulcer Musculoskeltal Medical History: Denies Hx Arthritis, Denies Hx Multiple Sclerosis Psychiatric Medical History: Denies: Hx Bipolar Disorder, Hx Depression, Hx Schizophrenia - Immunizations Hx Diphtheria, Pertussis, Tetanus Vaccination: Yes Physical Exam - Vital signs Vitals: Temp Pulse Resp BP Pulse Ox 98.1 F 71 18 150/93 H 100 09/18/17 19:24 09/18/17 19:24 09/18/17 19:24 09/18/17 19:24 09/18/17 19:24 Course - Vital Signs Vital signs: Temp Pulse Resp BP Pulse Ox 98.1 F 71 18 150/93 H 100 09/18/17 19:24 09/18/17 19:24 09/18/17 19:24 09/18/17 19:24 09/18/17 19:24
[2017-09-18 20:21] LABS: APPEARANCE,URINE CLEAR; BILIRUBIN,URINE NEGATIVE (NEGATIVE); COLOR,URINE YELLOW; GLUCOSE, URINE NEGATIVE (NEGATIVE); KETONES,URINE NEGATIVE (NEGATIVE); LEUKOCYTE ESTERASE,URINE NEGATIVE (NEGATIVE); NITRITE,URINE NEGATIVE (NEGATIVE); PROTEIN,URINE NEGATIVE (NEGATIVE); URINE SPECIFIC GRAVITY 1.013; UROBILINOGEN,URINE NEGATIVE mg/dL (<2.0)
[2017-09-18 20:23] LABS: ABSOLUTE EOSINOPHILS # (AUTO) 0.1 10^3/uL (0.0-0.6); ABSOLUTE LYMPHOCYTES (AUTO) 4.1 10^3/uL (0.5-4.7); ABSOLUTE MONOCYTES (AUTO) 0.6 10^3/uL (0.1-1.4); ABSOLUTE NEUT (AUTO) 9.5 10^3/uL (1.7-8.2); BASOPHILS % (AUTO) 0.2 % (0-2); EOSINOPHILS % (AUTO) 0.7 % (0-6); HEMATOCRIT 34.9 % (36.0-47.0); HEMOGLOBIN 11.2 g/dL (12.0-15.5); LYMPHOCYTES % (AUTO) 28.9 % (13-45); MEAN CORPUSCULAR HEMOGLOBIN 24.4 pg (27.0-33.4); MEAN CORPUSCULAR HGB CONC 32.2 g/dL (32.0-36.0); MEAN CORPUSCULAR VOLUME 76 fl (80-97); MONOCYTES % (AUTO) 4.1 % (3-13); PLATELET COUNT 355 10^3/uL (150-450); RED BLOOD COUNT 4.61 10^6/uL (3.72-5.28); RED CELL DISTRIBUTION WIDTH 15.4 % (11.5-14.0); SEGMENTED NEUTROPHILS % (AUTO) 66.1 % (42-78); TOTAL CELLS COUNTED % (AUTO) 100 %; WHITE BLOOD COUNT 14.3 10^3/uL (4.0-10.5)
[2017-09-18 20:47] LABS: ALANINE AMINOTRANSFERASE 32 U/L (9-52); ALBUMIN 4.6 g/dL (3.5-5.0); ALKALINE PHOSPHATASE 92 U/L (38-126); ANION GAP 13 (5-19); ASPARTATE AMINO TRANSFERASE 22 U/L (14-36); BILIRUBIN,DIRECT 0.4 mg/dL (0.0-0.4); BILIRUBIN,TOTAL 0.4 mg/dL (0.2-1.3); BLOOD UREA NITROGEN 12 mg/dL (7-20); CARBON DIOXIDE 23 mmol/L (22-30); CHLORIDE 105 mmol/L (98-107); GLUCOSE 82 mg/dL (75-110); LIPASE 87.5 U/L (23-300); POTASSIUM 3.5 mmol/L (3.6-5.0); SODIUM 140.9 mmol/L (137-145); TOTAL PROTEIN 8.9 g/dL (6.3-8.2)
--- NOTE | 2017-09-18 21:13 | ER Document Report ---
ED General - General Chief Complaint: Abdominal Pain Stated Complaint: ABDOMINAL PAIN Time Seen by Provider: 09/18/17 19:28 Mode of Arrival: Ambulatory Information source: Patient Notes: This is a 32-year-old female 3 para 3, last normal menstrual period in July (history of irregular periods) who presents to the emergency room with 2 days of intermittent left lower abdominal discomfort. TRAVEL OUTSIDE OF THE [place] IN LAST 30 DAYS: No - HPI Onset: Yesterday Onset/Duration: Gradual Quality of pain: No pain Severity: None Pain Level: Denies Associated symptoms: denies: Chest pain, Fever, Shortness of breath Exacerbated by: Denies Relieved by: Denies Similar symptoms previously: No Recently seen / treated by doctor: No - Related Data Allergies/Adverse Reactions: No Known Allergies Allergy (Verified 09/22/16 13:30) Past Medical History - General Information source: Patient - Social History Smoking Status: Never Smoker Cigarette use (# per day): No Chew tobacco use (# tins/day): No Frequency of alcohol use: Occasional Drug Abuse: None Lives with: Family Family History: Reviewed & Not Pertinent Patient has suicidal ideation: No Patient has homicidal ideation: No - Past Medical History Cardiac Medical History: Reports: Hx Hypertension - during Denies: Hx Congestive Heart Failure, Hx Heart Attack Pulmonary Medical History: Denies: Hx Asthma, Hx Bronchitis, Hx COPD, Hx Pneumonia, Hx Tuberculosis Neurological Medical History: Denies: Hx Seizures Renal/ Medical History: Denies: Hx End Stage Renal Disease, Hx Kidney Stones, Hx Peritoneal Dialysis GI Medical History: Denies: Hx Cirrhosis, Hx Gastroesophageal Reflux Disease, Hx Ulcer Musculoskeltal Medical History: Denies Hx Arthritis, Denies Hx Multiple Sclerosis Psychiatric Medical History: Denies: Hx Bipolar Disorder, Hx Depression, Hx Schizophrenia Surgical Hx: Negative - Immunizations Hx Diphtheria, Pertussis, Tetanus Vaccination: Yes Review of Systems - Review of Systems Constitutional: denies: Chills, Fever EENT: No symptoms reported Cardiovascular: No symptoms reported Respiratory: No symptoms reported Gastrointestinal: See HPI Genitourinary: No symptoms reported Female Genitourinary: No symptoms reported Musculoskeletal: No symptoms reported Skin: No symptoms reported Hematologic/Lymphatic: No symptoms reported Neurological/Psychological: No symptoms reported Physical Exam - Vital signs Vitals: Temp Pulse Resp BP Pulse Ox 98.1 F 71 18 150/93 H 100 09/18/17 19:24 09/18/17 19:24 09/18/17 19:24 09/18/17 19:24 09/18/17 19:24 Notes: Physical exam: GENERAL: 32-year-old female, alert and oriented 3, no acute distress HEAD: Atraumatic, normocephalic. EYES: Pupils equal round and reactive to light, extraocular movements intact, sclera anicteric, conjunctiva are normal. ENT: TMs normal, nares patent, oropharynx clear without exudates. Moist mucous membranes. NECK: Normal range of motion, supple without obvious mass or JVD. LUNGS: Breath sounds clear to auscultation bilaterally and equal. No wheezes rales or rhonchi. HEART: Regular rate and rhythm without murmurs, rubs or gallops. ABDOMEN: Soft, normoactive bowel sounds. Mild left lower quadrant tenderness to palpation. No guarding, no rebound. No masses appreciated. EXTREMITIES: Normal range of motion, no pitting or edema. No clubbing or cyanosis. NEUROLOGICAL: Cranial nerves II through XII grossly intact. Normal speech, moving all extremities. PSYCH: Normal mood, normal affect. SKIN: Warm, Dry, normal turgor, no rashes or lesions noted. Course - Vital Signs Vital signs: Temp Pulse Resp BP Pulse Ox 98.1 F 71 18 150/93 H 100 09/18/17 19:24 09/18/17 19:24 09/18/17 19:24 09/18/17 19:24 09/18/17 19:24 - Laboratory Result Diagrams: 09/18/17 19:46 09/18/17 19:46 Laboratory results interpreted by me: 09/18/17 09/18/17 19:46 19:46 WBC 14.3 H Hgb 11.2 L Hct 34.9 L MCV 76 L MCH 24.4 L RDW 15.4 H Absolute Neutrophils 9.5 H Potassium 3.5 L Total Protein 8.9 H - EKG Interpretation by Me Rate: Normal Rhythm: NSR - EKG shows normal sinus rhythm with a ventricular rate of 67, no acute ST-T wave changes Discharge - Discharge Clinical Impression: Diverticulitis Condition: Stable Disposition: HOME, SELF-CARE Additional Instructions: Recommendations: As we discussed, your labs look good. The urine test showed no infection. The preliminary reading of the ultrasound was okay. We will call you if there is any changes with the formal read. Take the antibiotics as prescribed [facility]. Return to the emergency room for worsening pain, fever or concerns or getting worse. Drink plenty of fluids and advance diet slowly. Prescriptions: Ciprofloxacin HCl [Cipro 500 mg Tablet] 500 mg PO BID #20 tablet Metronidazole [Flagyl 500 mg Tablet] 500 mg PO TID #30 tablet Forms: Return to Work Referrals: CHRIS CORTEZ MD [Primary Care Provider] - Follow up in 3-5 days
--- NOTE | 2017-09-18 21:19 | RADIOLOGY REPORT (SQ) ---
EXAM DESCRIPTION: ACUTE ABDOMEN SERIES COMPLETED DATE/TIME: 09/18/2017 9:02 pm REASON FOR STUDY: CP SOB abd pain COMPARISON: None. NUMBER OF VIEWS: Three views. TECHNIQUE: Frontal chest, supine abdomen and upright/decubitus abdomen radiographic images acquired. LIMITATIONS: None. FINDINGS: CHEST: Lungs clear of infiltrates. FREE AIR: None. No abnormal gas collections. BOWEL GAS PATTERN: Nonobstructive pattern. No dilated loops or air fluid levels. CALCIFICATIONS: No suspicious calcifications. HARDWARE: None in the abdomen. SOFT TISSUES: No gross mass or suggestion of organomegaly. BONES: No acute fracture. No worrisome bone lesions. OTHER: No other significant finding. IMPRESSION: NO RADIOGRAPHIC EVIDENCE FOR ACUTE ABDOMINAL DISEASE. TECHNICAL DOCUMENTATION: JOB ID: [id number] [place]-72 2010 [employer]- All Rights Reserved Reading location - IP/workstation name: [email or web address]
--- NOTE | 2017-09-18 21:27 | EKG REPORT ---
SEVERITY:- ABNORMAL ECG - SINUS RHYTHM PROBABLE LEFT VENTRICULAR HYPERTROPHY : Confirmed by: Abdoul Munoz 18-Sep-2017 21:25:42
--- NOTE | 2017-09-18 23:45 | RADIOLOGY REPORT (SQ) ---
EXAM DESCRIPTION: U/S NON OB PEL TV W/DOPPLER COMPLETED DATE/TIME: 09/18/2017 10:29 pm REASON FOR STUDY: right adnexal pain COMPARISON: None. TECHNIQUE: Dynamic and static grayscale images acquired of the pelvis via transvaginal approach and recorded on PACS. Additional selected color Doppler and spectral images recorded. LIMITATIONS: None. FINDINGS: UTERUS: Contour normal. No mass. ENDOMETRIAL STRIPE: No focal or generalized thickening. No masses. CERVIX: 10 mm complex nabothian cyst. RIGHT OVARY: No abnormal masses. RIGHT OVARY DOPPLER: Normal arterial vascular flow without evidence for torsion. LEFT OVARY: No abnormal masses. LEFT OVARY DOPPLER: Normal arterial vascular flow without evidence for torsion. FREE FLUID: None noted. OTHER: No other significant finding. MEASUREMENTS: UTERUS: 8.1 x 4.8 x 4.1 cm ENDOMETRIAL STRIPE: 10 mm RIGHT OVARY: Not visualized LEFT OVARY: 2.9 x 1.8 x 1.5 cm IMPRESSION: Nonvisualized right ovary. Otherwise, No acute findings. TECHNICAL DOCUMENTATION: JOB ID: [id number] [employer]- All Rights Reserved Reading location - IP/workstation name: [facility]
[2017-09-19] MEDS ORDERED: OXYCODONE-ACETAMINOPHEN 5-325 MG TABLET PO ONE (00:04)
[2017-09-19 00:15] VITALS: BP 179/110
== END 2017-09-19 00:15 | disposition home or self-care (01) ==
LOC: ER 19:04
DX: K57.92 Diverticulitis of intestine, part unspecified, without perforation or abscess without bleeding (principal); R03.0 Elevated blood-pressure reading, without diagnosis of hypertension; R10.32 Left lower quadrant pain
CPT/HCPCS: 36415; 74022; 76830; 80053; 81001; 81025; 83690; 85025; 93005; 93010; 93976; 99284

== ENCOUNTER 2017-09-19 15:20 | Emergency (ER) | payer SELFPAY ==
[2017-09-19 15:39] VITALS: BP 153/92
--- NOTE | 2017-09-19 16:25 | ER Document Report ---
ED General - General Chief Complaint: Numbness of Face Stated Complaint: NUMBNESS Time Seen by Provider: 09/19/17 16:21 Mode of Arrival: Ambulatory Information source: Patient Notes: Patient states that she went to her primary care doctor's today. She states for the first time in approximate 6 months she took losartan. She states approximately 30 minutes of taking the losartan she felt short of breath and had some chest tightness. She also states that she felt that her bottom lip was numb and big. She states she did receive a Benadryl and since then has felt significantly better. No previous reactions to losartan or any other medications. Although she received 2 prescriptions here yesterday for bacterial infection she has not filled either prescription yet. Patient's chest was tight and bilateral. It is better with Benadryl nothing appeared to make it worse. It was constant. It was mild to moderate. TRAVEL OUTSIDE OF THE [place] IN LAST 30 DAYS: No - Related Data Allergies/Adverse Reactions: No Known Allergies Allergy (Verified 09/19/17 15:25) Past Medical History - General Information source: Patient - Social History Smoking Status: Current Some Day Smoker Chew tobacco use (# tins/day): No Frequency of alcohol use: Occasional Drug Abuse: None Family History: Reviewed & Not Pertinent Patient has suicidal ideation: No Patient has homicidal ideation: No - Past Medical History Cardiac Medical History: Reports: Hx Hypertension - during Denies: Hx Congestive Heart Failure, Hx Heart Attack Pulmonary Medical History: Denies: Hx Asthma, Hx Bronchitis, Hx COPD, Hx Pneumonia, Hx Tuberculosis Neurological Medical History: Denies: Hx Seizures Renal/ Medical History: Denies: Hx End Stage Renal Disease, Hx Kidney Stones, Hx Peritoneal Dialysis GI Medical History: Denies: Hx Cirrhosis, Hx Gastroesophageal Reflux Disease, Hx Ulcer Musculoskeltal Medical History: Denies Hx Arthritis, Denies Hx Multiple Sclerosis Psychiatric Medical History: Denies: Hx Bipolar Disorder, Hx Depression, Hx Schizophrenia - Immunizations Hx Diphtheria, Pertussis, Tetanus Vaccination: Yes Review of Systems - Review of Systems Constitutional: denies: Chills, Fever Cardiovascular: Chest pain. denies: Palpitations Respiratory: Short of breath. denies: Cough Neurological/Psychological: Numbness. denies: Gait changes -: Yes All other systems reviewed and negative Physical Exam - Vital signs Vitals: Temp Pulse Resp BP Pulse Ox 97.9 F 63 18 153/92 H 100 09/19/17 15:36 09/19/17 15:36 09/19/17 15:36 09/19/17 15:36 09/19/17 15:36 Interpretation: Hypertensive - General General appearance: Appears well, Alert - HEENT Head: Normocephalic, Atraumatic Eyes: Normal Pupils: PERRL - Respiratory Respiratory status: No respiratory distress Chest status: Nontender Breath sounds: Normal Chest palpation: Normal - Cardiovascular Rhythm: Regular Heart sounds: Normal auscultation Murmur: No - Abdominal Inspection: Normal Distension: No distension Bowel sounds: Normal Tenderness: Nontender Organomegaly: No organomegaly - Back Back: Normal, Nontender - Extremities General upper extremity: Normal inspection, Nontender, Normal color, Normal ROM , Normal temperature General lower extremity: Normal inspection, Nontender, Normal color, Normal ROM , Normal temperature, Normal weight bearing. No: Andrea's sign - Neurological Neuro grossly intact: Yes Cognition: Normal Orientation: AAOx4 [place] Coma Scale Eye Opening: Spontaneous [place] Coma Scale Verbal: Oriented Bridgette Coma Scale Motor: Obeys Commands Bridgette Coma Scale Total: 15 Speech: Normal Motor strength normal: LUE, RUE, LLE, RLE Sensory: Normal - Psychological Associated symptoms: Normal affect, Normal mood - Skin Skin Temperature: Warm Skin Moisture: Dry Skin Color: Normal Course - Vital Signs Vital signs: Temp Pulse Resp BP Pulse Ox 97.9 F 63 18 153/92 H 100 09/19/17 15:36 09/19/17 15:36 09/19/17 15:36 09/19/17 15:36 09/19/17 15:36 - EKG Interpretation by Nh EKG shows normal: Sinus rhythm Rate: Normal Rhythm: NSR Voltage: Consistant with LVH Discharge - Discharge Clinical Impression: Allergic reaction Qualifiers: Encounter type: initial encounter Qualified Code(s): T78.40XA - Allergy, unspecified, initial encounter Condition: Stable Disposition: HOME, SELF-CARE Instructions: Acute Allergic Reaction to Drugs ([facility]) Additional Instructions: Please discuss your reaction to Losartan with your doctor tomorrow Referrals: CHRIS CORTEZ MD [Primary Care Provider] - Follow up tomorrow
--- NOTE | 2017-09-19 22:21 | EKG REPORT ---
SEVERITY:- ABNORMAL ECG - SINUS RHYTHM PROBABLE LVH WITH SECONDARY REPOL ABNRM : Confirmed by: Abdoul Munoz 19-Sep-2017 22:20:46
== END 2017-09-19 16:30 | disposition home or self-care (01) ==
LOC: ER 15:20
DX: T78.40XA Allergy, unspecified, initial encounter (principal); R20.0 Anesthesia of skin; X58.XXXA Exposure to other specified factors, initial encounter; F17.200 Nicotine dependence, unspecified, uncomplicated; I10 Essential (primary) hypertension
CPT/HCPCS: 93005; 93010; 99284

== ENCOUNTER → 2017-09-20 | Outpatient (CLI) | payer BC ==
[2017-09-20 14:37] LABS: CHOLESTEROL 161.84 mg/dL (0-200); TRIGLYCERIDES 73 mg/dL (<150)
[2017-09-20 14:48] LABS: DIRECT LDL 83 mg/dL (<100)
== END ==
LOC: OD 11:40
PROVIDERS: ATTEND Internal Medicine
DX: Z00.00 Encounter for general adult medical examination without abnormal findings (principal); Z13.228 Encounter for screening for other metabolic disorders; Z13.21 Encounter for screening for nutritional disorder; Z13.29 Encounter for screening for other suspected endocrine disorder
CPT/HCPCS: 36415; 80061; 82306; 84443

== ENCOUNTER 2017-10-30 09:10 | Emergency (ER) | payer BC, MEDICAID ==
[2017-10-30 09:34] VITALS: BP 147/93
--- NOTE | 2017-10-30 09:39 | ER Document Report ---
ED ENT - General Chief Complaint: Cold Symptoms Stated Complaint: COLD SYMPTOMS Time Seen by Provider: 10/30/17 09:20 Mode of Arrival: Ambulatory Information source: Patient Notes: 32-year-old female presents to ED for cough congestion sore throat with fever last week. She has a temperature of 98.0 right now has not had any Tylenol or Motrin this morning. She states she took some cold medicine last night and it did not help her and she has a elevated blood pressure this morning of 150/104. Patient was instructed to not take [id number]-[id number] cold medicine except Coricidin HB due to her blood pressure. She was also instructed to follow-up with Dr. Cortez today by telephone to schedule an appointment. TRAVEL OUTSIDE OF THE [place] IN LAST 30 DAYS: No - HPI Patient complains to provider of: Nose problem, Throat problem. No: Ear problem Onset: Last week Onset/Duration: Gradual Quality of pain: Achy, Sharp Severity: Moderate Pain Level: 4 Location of pain: Nose, Sinus, Throat Associated symptoms: Congestion, Cough, Fever, Runny nose, Sinus pain, Sinus drainage, Sore throat Similar symptoms previously: Yes Recently seen / treated by doctor: No - Related Data Allergies/Adverse Reactions: No Known Allergies Allergy (Verified 09/19/17 15:25) Past Medical History - General Information source: Patient - Social History Smoking Status: Never Smoker Cigarette use (# per day): No Chew tobacco use (# tins/day): No Smoking Education Provided: No Frequency of alcohol use: Social Drug Abuse: None Family History: Reviewed & Not Pertinent - Past Medical History Cardiac Medical History: Reports: Hx Hypertension - during Pulmonary Medical History: Reports: None EENT Medical History: Reports: None Neurological Medical History: Reports: None Endocrine Medical History: Reports: None Renal/ Medical History: Reports: None Malignancy Medical History: Reports: None GI Medical History: Reports: None Musculoskeltal Medical History: Reports None Skin Medical History: Reports None Psychiatric Medical History: Reports: None Traumatic Medical History: Reports: None Infectious Medical History: Reports: None Surgical Hx: Negative Past Surgical History: Reports: None - Immunizations Immunizations up to date: Yes Hx Diphtheria, Pertussis, Tetanus Vaccination: Yes Review of Systems - Review of Systems Constitutional: Chills, Fever, Recent illness EENT: Nose discharge, Sinus pressure, Sinus discharge, Throat pain Cardiovascular: No symptoms reported Respiratory: Cough. denies: Wheezing Gastrointestinal: No symptoms reported Genitourinary: No symptoms reported Female Genitourinary: No symptoms reported Musculoskeletal: No symptoms reported Skin: No symptoms reported Hematologic/Lymphatic: No symptoms reported Neurological/Psychological: No symptoms reported -: Yes All other systems reviewed and negative Physical Exam - Vital signs Vitals: Temp Pulse Resp BP Pulse Ox 98.0 F 72 18 150/104 H 98 10/30/17 09:14 10/30/17 09:14 10/30/17 09:14 10/30/17 09:14 10/30/17 09:14 Interpretation: Normal - General General appearance: Appears well, Alert - HEENT Head: Normocephalic, Atraumatic Eyes: Normal Pupils: PERRL Ears: Normal External canal: Normal Tympanic membrane: Normal Sinus: Normal Nasal: Purulent discharge, Swelling Mouth/Lips: Normal Pharynx: Post nasal drainage Neck: Normal - Respiratory Respiratory status: No respiratory distress Chest status: Nontender Breath sounds: Nonproductive cough Chest palpation: Normal - Cardiovascular Rhythm: Regular Heart sounds: Normal auscultation Murmur: No - Abdominal Inspection: Normal Distension: No distension Bowel sounds: Normal Tenderness: Nontender Organomegaly: No organomegaly - Back Back: Normal, Nontender - Extremities General upper extremity: Normal inspection, Nontender, Normal color, Normal ROM , Normal temperature General lower extremity: Normal inspection, Nontender, Normal color, Normal ROM , Normal temperature, Normal weight bearing. No: Andrea's sign - Neurological Neuro grossly intact: Yes Cognition: Normal Orientation: AAOx4 [place] Coma Scale Eye Opening: Spontaneous [place] Coma Scale Verbal: Oriented Bridgette Coma Scale Motor: Obeys Commands [place] Coma Scale Total: 15 Speech: Normal Motor strength normal: LUE, RUE, LLE, RLE Sensory: Normal - Psychological Associated symptoms: Normal affect, Normal mood - Skin Skin Temperature: Warm Skin Moisture: Dry Skin Color: Normal Course - Re-evaluation Re-evalutation: 10/30/17 09:38 After performing a Medical Screening Examination, I estimate there is LOW risk for ACUTE CORONARY SYNDROME, RESPIRATORY FAILURE, SEPSIS OR MENINGITIS, thus I consider the discharge disposition reasonable. I have reevaluated this patient multiple times and no significant life threatening changes are noted. The patient and I have discussed the diagnosis and risks, and we agree with discharging home with close follow-up. We also discussed returning to the Emergency Department immediately if new or worsening symptoms occur. We have discussed the symptoms which are most concerning (e.g., changing or worsening pain, trouble swallowing or breathing, neck stiffness, fever) that necessitate immediate return. - Vital Signs Vital signs: Temp Pulse Resp BP Pulse Ox 98.0 F 75 18 147/93 H 100 10/30/17 09:14 10/30/17 09:31 10/30/17 09:14 10/30/17 09:31 10/30/17 09:31 Discharge - Discharge Clinical Impression: Sore throat (viral) URI (upper respiratory infection) Qualifiers: URI type: unspecified URI Qualified Code(s): J06.9 - Acute upper respiratory infection, unspecified Condition: Stable Disposition: HOME, SELF-CARE Additional Instructions: Viral Syndrome The physician has diagnosed a viral infection. Viruses not only cause "colds," but can cause many different symptoms including generalized aching, fever, headache, cough, diarrhea, nausea, vomiting, and fatigue. The treatment, for the most part, is simply relief of symptoms. This means that antibiotics are usually not given. Rest, fluids, pain medications and, occasionally, medication for the specific symptoms that are most bothersome will be prescribed. Use good handwashing to avoid passing the virus to others. Shared toys should be cleaned with disinfectant. Clean the toilets, sinks, and counter surfaces in bathrooms. Launder clothing in hot water. Contact the physician if you develop any new or unusual symptoms such as severe headache, stiff neck, high fever, chest pain, productive cough, or shortness of breath. You should be rechecked if you don't see marked improvement within seven to 10 days. SORE THROAT: Sore throats may be caused by viruses, bacteria, or fungi. Most are due to a virus, and must get better on their own. Bacterial sore throats, particularly those due to "strep," need treatment with antibiotics. If an antibiotic is prescribed, be sure to take the medication for a full 10 days. Failure to take the antibiotic can result in complications such as rheumatic fever. Sometimes, an injection of antibiotics is given instead of pills or liquid. This single "shot" is equal in effectiveness to the oral medication. To relieve symptoms, take acetaminophen for pain. Sip clear liquids frequently, or eat popsicles or ice chips. Anesthetic sprays or lozenges may help. Make sure the air in the room is not too dry. Avoid using decongestants or antihistamines. Call the doctor if there is no improvement in two days, or if you have difficulty breathing, increasing throat pain, high fever, rash, or frequent vomiting. UPPER RESPIRATORY ILLNESS: You have a viral infection of the respiratory passages -- a "cold." This common infection causes nasal congestion, drainage, and often sore throat and cough. It is highly contagious. The disease usually lasts about 10 to 14 days. There is no "cure" for the viral infection -- it must run its course. If there is a complication, such as bacterial infection in the nose, sinuses, middle ear, or bronchial tubes, antibiotics may be required. The antibiotics won't affect the virus. Drink plenty of fluids. A humidifier may help. An expectorant medication or decongestant may make you more comfortable. Use acetaminophen or ibuprofen for fever or aches. See the doctor if fever persists over two days, if there is any significant worsening of your symptoms, or if you simply fail to improve as expected. COUGH-SUPPRESSANT & EXPECTORANT MEDICATION: You are to use a cough medication as needed for relief of symptoms. This medicine is a combination of an expectorant (to make the mucous thinner and more easily "coughed up") and a cough suppressant (to reduce the frequency of coughing). The cough-suppressant medicine is related to narcotics. You may experience mild nausea and sleepiness. Some patients who are very sensitive to narcotics may have stomach pain from this medicine. Taking the medicine with food reduces these side effects. Do not drive or work with machinery until you know how this medicine affects you. The expectorant should have no side effects. Iodine-containing expectorants (such as organidin) should not be taken by persons with active thyroid disease unless approved by your doctor. Call the doctor if you develop shortness of breath, hives, rash, itching, lightheadedness, or severe nausea and vomiting. INHALED BRONCHODILATORS: You have received a treatment of and/or prescription for an inhaled bronchodilator -- a medication which stimulates the airways in the lung to dilate. This improves the flow of air in asthma, bronchitis, and emphysema. These medicines have some similarity to adrenaline, and can cause similar side effects: shakiness, racing heart, and a sense of nervousness. These side effects decrease with time. Contact your doctor if these side effects are severe. Do not over-use the medicine. Too-frequent use of the inhaler may make it ineffective. Call your doctor if the inhaler is not controlling your symptoms at the prescribed doses. USE OF ACETAMINOPHEN (Tylenol): Acetaminophen may be taken for pain relief or fever control. It's much safer than aspirin, offering a wider range of "safe" dosages. It is safe during . Some brand names are Tylenol, Panadol, Datril, Anacin 3, Tempra, and Liquiprin. Acetaminophen can be repeated every four hours. The following are maximum recommended dosages: >89 pounds or adults 650 mg to 900 mg Acetaminophen can be repeated every four hours. Maximum dose not to exceed 4000 mg a day. Salt and soda solution 1 quart of water 1 tablespoon of salt 1 teaspoon of baking soda Mixed 3 ingredients together and boil for 1 minute Placed in a covered quart jar Use 1/2 ounce of cold solution to gargle 3 times a day Do not use normal [id number]-[id number]-qeqokgw antihistamines with your elevated blood pressure as this will continued elevated blood pressure. You can use Coricidin HB which is for people with blood pressure and Flonase. She can also use salt and soda solution gargles for your symptoms. FOLLOW-UP CARE: If you have been referred to a physician for follow-up care, call the physician s office for an appointment as you were instructed or within the next two days. If you experience worsening or a significant change in your symptoms, notify the physician immediately or return to the Emergency Department at any time for re-evaluation. Forms: Elevated Blood Pressure, Return to Work Referrals: CHRIS CORTEZ MD [Primary Care Provider] - Follow up as needed
== END 2017-10-30 09:56 | disposition home or self-care (01) ==
LOC: ER 09:10
DX: J06.9 Acute upper respiratory infection, unspecified (principal); R03.0 Elevated blood-pressure reading, without diagnosis of hypertension; R05 Cough; R09.81 Nasal congestion; J02.9 Acute pharyngitis, unspecified
CPT/HCPCS: 99283

== ENCOUNTER 2017-11-28 12:09 | Emergency (ER) | payer BC ==
--- NOTE | 2017-11-28 13:25 | ER Document Report ---
HPI - HPI Patient complains to provider of: Left ankle pain Pain Level: 4 Context: Patient is an obese 32-year-old female complaining of pain to her left medial malleolus and Achilles area. Patient reports that she was playing volleyball on Sunday which was 3 days ago with her children and later that evening her ankle began to hurt. She does not recall injuring her ankle during the volleyball. She is able to walk but with pain. Associated Symptoms: None Exacerbated by: Walking Relieved by: Denies Similar symptoms previously: No Recently seen / treated by doctor: No - REPRODUCTIVE Reproductive: DENIES: : Past Medical History - General Information source: Patient - Social History Smoking Status: Never Smoker Frequency of alcohol use: None Drug Abuse: None Lives with: Family Family History: Reviewed & Not Pertinent - Past Medical History Cardiac Medical History: Reports: Hx Hypertension - during Denies: Hx Congestive Heart Failure, Hx Heart Attack Pulmonary Medical History: Denies: Hx Asthma, Hx Bronchitis, Hx COPD, Hx Pneumonia, Hx Tuberculosis Neurological Medical History: Denies: Hx Seizures Renal/ Medical History: Denies: Hx End Stage Renal Disease, Hx Kidney Stones, Hx Peritoneal Dialysis GI Medical History: Denies: Hx Gastroesophageal Reflux Disease, Hx Ulcer Musculoskeltal Medical History: Denies Hx Arthritis Psychiatric Medical History: Denies: Hx Bipolar Disorder, Hx Depression, Hx Schizophrenia - Immunizations Immunizations up to date: Yes Hx Diphtheria, Pertussis, Tetanus Vaccination: Yes Vertical Provider Document - CONSTITUTIONAL Agree With Documented VS: Yes General Appearance: WD/WN - INFECTION CONTROL TRAVEL OUTSIDE OF THE [place] IN LAST 30 DAYS: No - HEENT HEENT: Atraumatic, PERRLA - NECK Neck: Normal Inspection, Supple - RESPIRATORY Respiratory: Breath Sounds Normal, No Respiratory Distress - MUSCULOSKELETAL/EXTREMETIES Musculoskeletal/Extremeties: Tender - mild left medial malleolus tenderness. + tenderness over left achilles tendon. no edema or echymosis. left foot is warm to touch with good pedal pulse Course - Re-evaluation Re-evalutation: 11/28/17 14:45 X-rays negative. These results were reviewed with the patient. After performing a Medical Screening Examination, I estimate there is LOW risk for OPEN FRACTURE, COMPARTMENT SYNDROME, DEEP VENOUS THROMBOSIS, ACUTE TENDON RUPTURE, or NEUROVASCULAR INJURY thus I consider the discharge disposition reasonable. I have reevaluated this patient multiple times and no significant life threatening changes are noted. The patient and I have discussed the diagnosis and risks, and we agree with discharging home to closely follow-up with their primary doctor or the referral orthopedist with the understanding that symptoms and presentations can change. We also discussed returning to the Emergency Department immediately if new or worsening symptoms occur. We have discussed the symptoms which are most concerning (e.g., changing or worsening pain, numbness, weakness) that necessitate immediate return - Vital Signs Vital signs: Temp Pulse Resp BP Pulse Ox 98.4 F 67 16 163/92 H 100 11/28/17 12:13 11/28/17 12:13 11/28/17 12:13 11/28/17 12:13 11/28/17 12:13 Discharge - Discharge Clinical Impression: Left ankle sprain Qualifiers: Encounter type: initial encounter Involved ligament of ankle: unspecified ligament Qualified Code(s): S93.402A - Sprain of unspecified ligament of left ankle, initial encounter Condition: Stable Disposition: HOME, SELF-CARE Instructions: Louie Wrap ([facility]), Ice & Elevation ([facility]), Use of [id number]-Owp-Eqjtftl Ibuprofen ([facility]) Additional Instructions: Your x-ray is negative for fracture Wear the Louie wrap for support and comfort Ice and elevate your ankle as much as possible Follow-up with her primary care if pain persists more than 10 days Prescriptions: Ibuprofen [Motrin 800 Mg Tablet] 800 mg PO Q6H #20 tablet Forms: Return to Work
--- NOTE | 2017-11-28 13:56 | RADIOLOGY REPORT (SQ) ---
EXAM DESCRIPTION: ANKLE LEFT COMPLETE COMPLETED DATE/TIME: 11/28/2017 1:37 pm REASON FOR STUDY: left ankle pain COMPARISON: None. NUMBER OF VIEWS: Three views. TECHNIQUE: AP, lateral, and oblique radiographic images acquired of the left ankle. LIMITATIONS: None. FINDINGS: MINERALIZATION: Normal. BONES: No acute fracture or dislocation. No worrisome bone lesions. Small plantar and dorsal calcan eal spurs. JOINTS: No effusions. SOFT TISSUES: No soft tissue swelling. No foreign body. OTHER: No other significant finding. IMPRESSION: NEGATIVE STUDY OF THE LEFT ANKLE. NO RADIOGRAPHIC EVIDENCE OF ACUTE INJURY. TECHNICAL DOCUMENTATION: JOB ID: [id number] [employer]- All Rights Reserved Reading location - IP/workstation name: [email or web address]
[2017-11-28 14:54] VITALS: BP 140/98
== END 2017-11-28 14:59 | disposition home or self-care (01) ==
LOC: ER 12:09
DX: S93.402A Sprain of unspecified ligament of left ankle, initial encounter (principal); X58.XXXA Exposure to other specified factors, initial encounter; Y93.68 Activity, volleyball (beach) (court)
CPT/HCPCS: 99283

== ENCOUNTER 2018-03-08 04:24 | Observation (INO) | payer BC ==
[2018-03-08] MEDS ORDERED: ONDANSETRON 4 MG TAB.RAPDIS PO ONE (04:57)
[2018-03-08 05:40] LABS: ABSOLUTE BASOPHILS # (AUTO) 0.1 10^3/uL (0.0-0.2); ABSOLUTE EOSINOPHILS # (AUTO) 0.1 10^3/uL (0.0-0.6); ABSOLUTE LYMPHOCYTES (AUTO) 2.9 10^3/uL (0.5-4.7); ABSOLUTE MONOCYTES (AUTO) 0.5 10^3/uL (0.1-1.4); BASOPHILS % (AUTO) 0.8 % (0-2); HEMATOCRIT 36.1 % (36.0-47.0); HEMOGLOBIN 11.6 g/dL (12.0-15.5); LYMPHOCYTES % (AUTO) 24.9 % (13-45); MEAN CORPUSCULAR HEMOGLOBIN 24.8 pg (27.0-33.4); MEAN CORPUSCULAR HGB CONC 32.2 g/dL (32.0-36.0); MEAN CORPUSCULAR VOLUME 77 fl (80-97); MONOCYTES % (AUTO) 4.6 % (3-13); PLATELET COUNT 380 10^3/uL (150-450); RED BLOOD COUNT 4.69 10^6/uL (3.72-5.28); SEGMENTED NEUTROPHILS % (AUTO) 68.7 % (42-78); TOTAL CELLS COUNTED % (AUTO) 100 %; WHITE BLOOD COUNT 11.7 10^3/uL (4.0-10.5)
--- NOTE | 2018-03-08 06:49 | ER Document Report ---
ED General - General Mode of Arrival: Ambulatory Information source: Patient TRAVEL OUTSIDE OF THE [place] IN LAST 30 DAYS: No <DAWN JHA - Last Filed: 03/08/18 07:05> <IKE ESQUIVEL - Last Filed: 03/08/18 12:48> - General Chief Complaint: Abdominal Pain Stated Complaint: STOMACH,BACK PAIN Time Seen by Provider: 03/08/18 06:28 Notes: Patient is a 33 year old female with hypertension presents to the emergency department complaining of abdominal pain onset last week worsening this week. Patient states the abdominal pain is diffuse and radiates into her lower back. She also complains of nausea and abdominal bloating. Patient presented to the emergency department on September 18, 2017 complaining of similar symptoms and was clinically diagnosed with diverticulitis subsequently prescribed Cipro and Flagyl. Patient states the Cipro and Flagyl resolved her symptoms at that time. Patient denies any dysuria or diarrhea. Patient's PCP is Dr. Cortez. (DAWN HJA) - Related Data Allergies/Adverse Reactions: No Known Allergies Allergy (Verified 11/28/17 12:09) Past Medical History - General Information source: Patient - Social History Smoking Status: Never Smoker Chew tobacco use (# tins/day): No Frequency of alcohol use: None Drug Abuse: None Family History: Reviewed & Not Pertinent Patient has suicidal ideation: No Patient has homicidal ideation: No - Past Medical History Cardiac Medical History: Reports: Hx Hypertension - during - Immunizations Immunizations up to date: Yes Hx Diphtheria, Pertussis, Tetanus Vaccination: Yes <DAWN JHA - Last Filed: 03/08/18 07:05> Review of Systems - Review of Systems Constitutional: No symptoms reported EENT: No symptoms reported Cardiovascular: No symptoms reported Respiratory: No symptoms reported Gastrointestinal: See HPI, Abdominal pain Genitourinary: No symptoms reported Female Genitourinary: No symptoms reported Musculoskeletal: No symptoms reported Skin: No symptoms reported Hematologic/Lymphatic: No symptoms reported Neurological/Psychological: No symptoms reported -: Yes All other systems reviewed and negative <DAWN JHA - Last Filed: 03/08/18 07:05> Physical Exam <DAWN JHA - Last Filed: 03/08/18 07:05> <IKE ESQUIVEL - Last Filed: 03/08/18 12:48> - Vital signs Vitals: Temp Pulse Resp BP Pulse Ox 97.9 F 70 18 159/109 H 100 03/08/18 04:25 03/08/18 04:25 03/08/18 04:25 03/08/18 04:25 03/08/18 04:25 - Notes Notes: GENERAL: Alert, interacts well. No acute distress. HEAD: Normocephalic, atraumatic. EYES: Pupils equal, round, and reactive to light. Extraocular movements intact. ENT: Oral mucosa moist, tongue midline. NECK: Full range of motion. Supple. Trachea midline. LUNGS: Clear to auscultation bilaterally, no wheezes, rales, or rhonchi. No respiratory distress. HEART: Regular rate and rhythm. No murmurs, gallops, or rubs. ABDOMEN: Soft, morbidly obese. Diffuse tenderness to palpation. Non-distended. Bowel sounds present in all 4 quadrants. EXTREMITIES: Moves all 4 extremities spontaneously. NEUROLOGICAL: Alert and oriented x3. Normal speech. PSYCH: Normal affect, normal mood. SKIN: Warm, dry, normal turgor. No rashes or lesions noted. (DAWN JHA) Course - Laboratory Result Diagrams: 03/08/18 05:23 03/08/18 06:07 <DAWN JHA - Last Filed: 03/08/18 07:05> - Laboratory Result Diagrams: 03/08/18 05:23 03/08/18 06:07 - Diagnostic Test Radiology reviewed: Image reviewed, Reports reviewed - CT scan of the abdomen and pelvis is unknown remarkable. Gallbladder ultrasound shows a non-mobile stone lodged in the gallbladder neck. There is no cholecystitis. - Consults Dr. Welch Time consulted: 10:45 Consulted provider: will come to ER <IKE ESQUIVEL - Last Filed: 03/08/18 12:48> - Re-evaluation Re-evalutation: 03/08/18 09:[address] scan, shows that she now really seems to be most tender in the epigastrium and right upper quadrant of her abdomen up under the ribs. We will do a gallbladder ultrasound to see if that is the source of her discomfort, and give a GI cocktail in case this is a reflux esophagitis type problem. 03/08/18 10:52 Gallbladder ultrasound shows a solitary stone lodged in the gallbladder neck. There is no cholecystitis. On reevaluation, the epigastric pain is gone after the GI cocktail, but the right upper quadrant pain remains on exam. (IKE ESQUIVEL) - Vital Signs Vital signs: Temp Pulse Resp BP Pulse Ox 98.6 F 84 18 150/99 H 98 03/08/18 08:09 03/08/18 08:09 03/08/18 08:09 03/08/18 08:09 03/08/18 08:09 - Laboratory Laboratory results interpreted by me: 03/08/18 03/08/18 05:23 06:07 WBC 11.7 H Hgb 11.6 L MCV 77 L MCH 24.8 L RDW 16.0 H Total Protein 8.3 H Discharge <DAWN JHA - Last Filed: 03/08/18 07:05> - Discharge Admitting Provider: Surgicalist Unit Admitted: Surgical Floor <IKE ESQUIVEL - Last Filed: 03/08/18 12:48> - Discharge Clinical Impression: Right upper quadrant abdominal pain Cholelithiasis Qualifiers: Cholelithiasis location: gallbladder Cholecystitis presence: without cholecystitis Biliary obstruction: without biliary obstruction Qualified Code(s) : K80.20 - Calculus of gallbladder without cholecystitis without obstruction High blood pressure Qualifiers: Hypertension type: essential hypertension Qualified Code(s): I10 - Essential ( primary) hypertension Condition: Stable Disposition: ADMITTED OBSERVATION Referrals: CHRIS CORTEZ MD [Primary Care Provider] - Follow up as needed Scribe Attestation: 03/08/18 07:25 I personally performed the services described in the documentation, reviewed and edited the documentation which was dictated to the scribe in my presence, and it accurately records my words and actions. (IKE ESQUIVEL) Scribe Documentation - Scribe Written by Maria:: Maria Newman, 03/08/2018 06:58 acting as scribe for :: Lauri <DAWN JHA - Last Filed: 03/08/18 07:05>
[2018-03-08 06:56] LABS: ALANINE AMINOTRANSFERASE 27 U/L (9-52); ALBUMIN 4.2 g/dL (3.5-5.0); ALKALINE PHOSPHATASE 81 U/L (38-126); ANION GAP 13 (5-19); ASPARTATE AMINO TRANSFERASE 21 U/L (14-36); BILIRUBIN,DIRECT 0.2 mg/dL (0.0-0.4); BILIRUBIN,TOTAL 0.3 mg/dL (0.2-1.3); BLOOD UREA NITROGEN 11 mg/dL (7-20); CALCIUM 9.5 mg/dL (8.4-10.2); CARBON DIOXIDE 24 mmol/L (22-30); CHLORIDE 106 mmol/L (98-107); GLUCOSE 106 mg/dL (75-110); LIPASE 82.5 U/L (23-300); POTASSIUM 4.3 mmol/L (3.6-5.0); TOTAL PROTEIN 8.3 g/dL (6.3-8.2)
[2018-03-08 08:20] LABS: APPEARANCE,URINE SLIGHTLY-CLOUDY; BILIRUBIN,URINE NEGATIVE (NEGATIVE); COLOR,URINE YELLOW; GLUCOSE, URINE NEGATIVE (NEGATIVE); KETONES,URINE NEGATIVE (NEGATIVE); LEUKOCYTE ESTERASE,URINE NEGATIVE (NEGATIVE); NITRITE,URINE NEGATIVE (NEGATIVE); PROTEIN,URINE NEGATIVE (NEGATIVE); URINE SPECIFIC GRAVITY 1.014; UROBILINOGEN,URINE NEGATIVE mg/dL (<2.0)
--- NOTE | 2018-03-08 08:41 | RADIOLOGY REPORT (SQ) ---
EXAM DESCRIPTION: CT LTD RENAL STONE PROTOCOL ON COMPLETED DATE/TIME: 03/08/2018 8:03 am REASON FOR STUDY: Abdominal pain COMPARISON: None. TECHNIQUE: CT scan of the abdomen and pelvis performed without intravenous or oral contrast. Images reviewed with lung, soft tissue, and bone windows. Reconstructed coronal and sagittal MPR images revi ewed. All images stored on PACS. All CT scanners at this facility use dose modulation, iterative reconstruction, and/or weight based d osing when appropriate to reduce radiation dose to as low as reasonably achievable (ALARA). [facility]: Dose Right [facility]: CareDose [facility]: Dose Right [facility]: Teradose 4D [facility]: [employer] RADIATION DOSE: CT Rad equipment meets quality standard of care and radiation dose reduction techniq ues were employed. CTDIvol: 27.1 mGy. DLP: 1493 mGy-cm.mGy. LIMITATIONS: None. FINDINGS: LOWER CHEST: No significant findings. No nodules or infiltrates. NON-CONTRASTED LIVER, SPLEEN, ADRENALS: Evaluation limited by lack of IV contrast. No identified sign ificant masses. PANCREAS: No masses. No peripancreatic inflammatory changes. GALLBLADDER: No identified stones by CT criteria. No inflammatory changes to suggest cholecystitis. RIGHT KIDNEY AND URETER: No suspicious masses. Assessment limited by lack of IV contrast. No signif icant calcifications. No hydronephrosis or hydroureter. LEFT KIDNEY AND URETER: No suspicious masses. Assessment limited by lack of IV contrast. No signifi cant calcifications. No hydronephrosis or hydroureter. AORTA AND RETROPERITONEUM: No aneurysm. No retroperitoneal masses or adenopathy. BOWEL AND PERITONEAL CAVITY: No obvious masses or inflammatory changes. No free fluid. APPENDIX: Normal. PELVIS, BLADDER, AND ABDOMINAL WALL:There is a 3 mm calcified density to left of midline image 82, wh ich is probably a phlebolith however cannot entirely exclude a distal ureteral stone. Correlation wi th urinalysis recommended. BONES: No significant findings. OTHER: No other significant finding. IMPRESSION: Equivocal nonobstructing stone left UVJ. Correlation with urinalysis is recommended. COMMENT: Quality ID # [id number]: Final reports with documentation of one or more dose reduction techniques (e.g., Automated exposure control, adjustment of the mA and/or kV according to patient size, use of iterative reconstruction technique) TECHNICAL DOCUMENTATION: JOB ID: [id number] [employer]- All Rights Reserved Reading location - IP/workstation name: [email or web address]
[2018-03-08] MEDS ORDERED: LIDOCAINE 2% VISCOUS SOLN 20 ML UDCUP PO ONE (09:29)
[2018-03-08] MEDS ORDERED: MAG HYDROX/AL HYDROX/SIMETH SUSP 30 ML UDCUP PO ONE (09:29)
[2018-03-08] MEDS ORDERED: SUCCINYLCHOLINE CHLORIDE INJ 200 MG/10 ML VIAL ONE (10:04)
[2018-03-08] MEDS ORDERED: NEOSTIGMINE METHYLSULFATE 10 MG/10 ML VIAL ONE (10:04)
[2018-03-08] MEDS ORDERED: ROCURONIUM BROMIDE INJ 50 MG/5 ML VIAL IV ONE (10:04)
[2018-03-08] MEDS ORDERED: GLYCOPYRROLATE 1 MG/5 ML SYRINGE ONE (10:04)
--- NOTE | 2018-03-08 10:20 | RADIOLOGY REPORT (SQ) ---
EXAM DESCRIPTION: U/S ABDOMEN LIMITED W/O DOP COMPLETED DATE/TIME: 03/08/2018 10:10 am REASON FOR STUDY: RUQ and epigastric pain COMPARISON: None. TECHNIQUE: Dynamic and static grayscale images acquired of the abdomen and recorded on PACS. Additio nal selected color Doppler and spectral images recorded. LIMITATIONS: None. FINDINGS: PANCREAS: No masses. Visualized pancreatic duct normal caliber. LIVER: No masses. Echotexture normal. LIVER VASCULATURE: Normal directional flow of the main portal vein and hepatic veins. GALLBLADDER: Non mobile stone in the gallbladder neck. Normal wall thickness. No pericholecystic flui d. ULTRASOUND-DETECTED BARDALES'S SIGN: Negative. INTRAHEPATIC DUCTS AND COMMON DUCT: CBD and intrahepatic ducts normal caliber. No filling defects. INFERIOR VENA CAVA: Normal flow. AORTA: No aneurysm. RIGHT KIDNEY: Normal size. Normal echogenicity. No solid or suspicious masses. No hydronephrosis. No calcifications. PERITONEAL AND RIGHT PLEURAL SPACE: No ascites or effusions. OTHER: No other significant findings. IMPRESSION: Non mobile stone in the gallbladder neck. No evidence of acute cholecystitis. TECHNICAL DOCUMENTATION: JOB ID: [id number] [employer]- All Rights Reserved Reading location - IP/workstation name: [email or web address]
[2018-03-08] MEDS ORDERED: ONDANSETRON HCL INJ/PF 4 MG/2 ML SDV IV ONE (11:31)
[2018-03-08] MEDS ORDERED: NORMAL SALINE 1000 ML 1,000 ML IV ONE (11:31)
[2018-03-08] MEDS ORDERED: HYDROMORPHONE HCL INJ/PF 2 MG/ML AMPULE IV ONE (11:31)
[2018-03-08] MEDS ORDERED: ONDANSETRON HCL INJ/PF 4 MG/2 ML SDV IV PRN (12:02)
[2018-03-08] MEDS ORDERED: DEXTROSE 40% GEL 15 GM TUBE PO PRN ×2 (12:03)
[2018-03-08] MEDS ORDERED: GLUCAGON,HUMAN RECOMB 1 MG INJ IM PRN (12:03)
[2018-03-08] MEDS ORDERED: DEXTROSE 50%-WATER 25 GM/50 ML DISP.SYRIN IV PRN ×2 (12:03)
[2018-03-08] MEDS ORDERED: INSULIN REG, HUMAN 100 UNIT/ML 3 ML VIAL (PYX) SUBCUT PRN (12:03)
--- NOTE | 2018-03-08 12:11 | PDOC H&P ---
History of Present Illness Admission Date/PCP: CHRIS CORTEZ Patient complains of: Abdominal pain History of Present Illness: HILDA BROTHERS is a 33 year old female Patient seen at the request of Dr. Ralph Carreon. According patient she has had a several day history of abdominal exam, postprandial in nature. No nausea or vomiting. She denies change in bowel habits. She was seen emergency department, thought to have kidney stone and had a unenhanced CT scan of the abdomen and pelvis which showed a phlebolith versus a small left distal ureteral stone. Her urine analysis was unremarkable. Because of persisting abdominal pain, localizing now to the right upper quadrant, she had a gallbladder ultrasound which showed gallstones, no pericholecystic fluid, normal common bile duct. Surgery was consulted and she was advised admission for definitive management. Patient presents to the emergency department several months ago with similar complaints, felt to have acute sigmoid diverticulitis and was managed with p.o. ciprofloxacin and Flagyl. Past Medical History Cardiac Medical History: Reports: Hypertension - during Denies: Congestive Heart Failure, Myocardial Infarction Pulmonary Medical History: Denies: Asthma, Bronchitis, Chronic Obstructive Pulmonary Disease (COPD), Pneumonia, Tuberculosis Neurological Medical History: Denies: Seizures Renal/ Medical History: Denies: End Stage Renal Disease GI Medical History: Denies: Gastroesophageal Reflux Disease Musculoskeltal Medical History: Denies: Arthritis Psychiatric Medical History: Denies: Bipolar Disorder, Depression Hematology: Denies: Anemia, Bleeding Tendencies Past Surgical History Past Surgical History: Reports: None Social History Information Source: Patient Smoking Status: Never Smoker Frequency of Alcohol Use: None Hx Recreational Drug Use: No Family History Family History: Reviewed & Not Pertinent Parental Family History Reviewed: Yes Children Family History Reviewed: Yes Sibling(s) Family History Reviewed.: Yes Medication/Allergy Home Medications: Acetaminophen with Codeine [Tylenol #3 Tablet] 1 tab PO Q4HP PRN 09/22/16 Ibuprofen [Motrin 800 mg Tablet] 800 mg PO Q8 09/22/16 Vit/Iron Fum/Folic AC [ Tablet] 1 tab PO DAILY 09/22/16 Labetalol HCl [Normodyne 200 mg Tablet] 400 mg PO Q12A #30 tablet 09/24/16 Ciprofloxacin HCl [Cipro 500 mg Tablet] 500 mg PO BID #20 tablet 09/18/17 Metronidazole [Flagyl 500 mg Tablet] 500 mg PO TID #30 tablet 09/18/17 Oxycodone HCl/Acetaminophen [Percocet 5-325 mg Tablet] 1 - 2 tab PO ASDIR PRN # 15 tablet 09/19/17 Ibuprofen [Motrin 800 Mg Tablet] 800 mg PO Q6H #20 tablet 11/28/17 Allergies/Adverse Reactions: No Known Allergies Allergy (Verified 11/28/17 12:09) Review of Systems Constitutional: PRESENT: as per HPI Eyes: ABSENT: visual disturbances Ears: ABSENT: hearing changes Cardiovascular: ABSENT: chest pain, dyspnea on exertion, edema, orthropnea, palpitations Respiratory: ABSENT: cough, hemoptysis Gastrointestinal: PRESENT: as per HPI Genitourinary: ABSENT: dysuria, hematuria Musculoskeletal: ABSENT: joint swelling Integumentary: ABSENT: rash, wounds Neurological: ABSENT: abnormal gait, abnormal speech, confusion, dizziness, focal weakness, syncope Endocrine: ABSENT: cold intolerance, heat intolerance, polydipsia, polyuria Physical Exam Vital Signs: Temp Pulse Resp BP Pulse Ox 98.6 F 84 18 150/99 H 98 03/08/18 08:09 03/08/18 08:09 03/08/18 08:09 03/08/18 08:09 03/08/18 08:09 Intake & Output 03/07/18 03/08/18 03/09/18 06:59 06:59 06:59 Weight 140.9 kg General appearance: PRESENT: no acute distress Head exam: PRESENT: normocephalic Eye exam: PRESENT: EOMI Ear exam: PRESENT: normal external ear exam Neck exam: PRESENT: full ROM Respiratory exam: PRESENT: clear to auscultation ketan Cardiovascular exam: PRESENT: RRR Pulses: PRESENT: normal carotid pulses, normal radial pulses, normal dorsalis pedis pul GI/Abdominal exam: PRESENT: other - Soft, distended due to obesity; right upper quadrant tenderness. Guarding present. Rectal exam: PRESENT: deferred Extremities exam: PRESENT: full ROM Musculoskeletal exam: PRESENT: full ROM Neurological exam: PRESENT: alert, awake, oriented to person, oriented to place , oriented to time, oriented to situation Psychiatric exam: PRESENT: appropriate affect Results Laboratory Results: 03/08/18 05:23 03/08/18 06:07 03/08/18 03/08/18 03/08/18 05:23 05:23 06:07 WBC 11.7 H RBC 4.69 Hgb 11.6 L Hct 36.1 MCV 77 L MCH 24.8 L MCHC 32.2 RDW 16.0 H Plt Count 380 Seg Neutrophils % 68.7 Lymphocytes % 24.9 Monocytes % 4.6 Eosinophils % 1.0 Basophils % 0.8 Absolute Neutrophils 8.0 Absolute Lymphocytes 2.9 Absolute Monocytes 0.5 Absolute Eosinophils 0.1 Absolute Basophils 0.1 Sodium Cancelled 143.0 Potassium Cancelled 4.3 Chloride Cancelled 106 Carbon Dioxide Cancelled 24 Anion Gap Cancelled 13 BUN Cancelled 11 Creatinine Cancelled 0.71 Est GFR ( Amer) Cancelled > 60 Est GFR (Non-Af Amer) Cancelled > 60 Glucose Cancelled 106 Calcium Cancelled 9.5 Total Bilirubin Cancelled 0.3 AST Cancelled 21 ALT Cancelled 27 Alkaline Phosphatase Cancelled 81 Total Protein Cancelled 8.3 H Albumin Cancelled 4.2 Lipase Cancelled 82.5 Serum HCG, Qual Urine Color Urine Appearance Urine pH Ur Specific [place] Urine Protein Urine Glucose (UA) Urine Ketones Urine Blood Urine Nitrite Ur Leukocyte Esterase Urine WBC (Auto) Urine RBC (Auto) 03/08/18 03/08/18 06:07 07:35 WBC RBC Hgb Hct MCV MCH MCHC RDW Plt Count Seg Neutrophils % Lymphocytes % Monocytes % Eosinophils % Basophils % Absolute Neutrophils Absolute Lymphocytes Absolute Monocytes Absolute Eosinophils Absolute Basophils Sodium Potassium Chloride Carbon Dioxide Anion Gap BUN Creatinine Est GFR ( Amer) Est GFR (Non-Af Amer) Glucose Calcium Total Bilirubin AST ALT Alkaline Phosphatase Total Protein Albumin Lipase Serum HCG, Qual NEGATIVE Urine Color YELLOW Urine Appearance SLIGHTLY-CLOUDY Urine pH 7.0 Ur Specific [place] 1.014 Urine Protein NEGATIVE Urine Glucose (UA) NEGATIVE Urine Ketones NEGATIVE Urine Blood NEGATIVE Urine Nitrite NEGATIVE Ur Leukocyte Esterase NEGATIVE Urine WBC (Auto) 1 Urine RBC (Auto) 0 Impressions: Limited or Localized CT 03/08/18 07:02 IMPRESSION: Equivocal nonobstructing stone left UVJ. Correlation with urinalysis is recommended. Abdomen Ultrasound 03/08/18 09:29 IMPRESSION: Non mobile stone in the gallbladder neck. No evidence of acute cholecystitis. Assessment & Plan - Diagnosis (1) Cholelithiasis Qualifiers: Cholelithiasis location: gallbladder Cholecystitis presence: without cholecystitis Biliary obstruction: without biliary obstruction Qualified Code(s): K80.20 - Calculus of gallbladder without cholecystitis without obstruction Is this a current diagnosis for this admission?: Yes Plan: Impression: Patient presents emergency department with cholecystitis, acute superimposed on chronic with cholelithiasis. There is no evidence of sepsis. Recommendations: 1. I have recommended the patient be admitted to the surgical service and undergo interval laparoscopic, possible open cholecystectomy. This will relieve patient of her symptoms, reduce her risk of complication related to cholelithiasis, and reduce her resource utilization as well as cost of the healthcare system. 2. Patient is somewhat anxious about undergoing surgery. She awaits her mother 's arrival; we will discuss the recommended treatment and operative details when her mother arrives. (2) Morbid obesity with BMI of 50.0-59.9, adult Is this a current diagnosis for this admission?: Yes (3) Hypertension Is this a current diagnosis for this admission?: Yes (4) Diabetes mellitus type 2 in obese Is this a current diagnosis for this admission?: Yes (5) Right upper quadrant abdominal pain Is this a current diagnosis for this admission?: Yes - Time Time Spent: 50 to 70 Minutes Critical Time spent with patient: 15-24 minutes Medications reviewed and adjusted accordingly: Yes Anticipated discharge: Home - Inpatient Certification Based on my medical assessment, after consideration of the patient's comorbidities, presenting symptoms, or acuity I expect that the services needed warrant INPATIENT care.: Yes I certify that my determination is in accordance with my understanding of Medicare's requirements for reasonable and necessary INPATIENT services [42 CFR 412.3e].: Yes Medical Necessity: Need For IV Fluids, Need for Pain Control, Need for IV Antibiotics, Need for Surgery
[2018-03-08] MEDS: CEFAZOLIN 1 GM/D5W RTU 1 GM/50 ML RTUPB IV SCH ×2 (14:04→21:31)
[2018-03-08] MEDS ORDERED: BUPIVACAINE HCL 0.5 % INJ/PF 30 ML SDV ONE (14:26)
[2018-03-08] MEDS ORDERED: FENTANYL CITRATE INJ/PF 100 MCG/2 ML AMPUL ONE (14:29)
[2018-03-08] MEDS ORDERED: ONDANSETRON HCL INJ/PF 4 MG/2 ML SDV ONE (14:29)
[2018-03-08] MEDS ORDERED: DEXAMETHASONE SOD PHOSPHATE INJ 4 MG/1 ML VIAL ONE (14:29)
[2018-03-08] MEDS ORDERED: MIDAZOLAM 2 MG/2 ML INJ ONE (14:29)
[2018-03-08] MEDS ORDERED: HYDROMORPHONE HCL INJ/PF 2 MG/ML AMPULE ONE (14:29)
[2018-03-08] MEDS ORDERED: ACETAMINOPHEN 1,000 MG/100 ML RTUPB IV ONE (14:30)
[2018-03-08] MEDS ORDERED: PROPOFOL INJ 200 MG/20 ML VIAL IV ONE (14:30)
[2018-03-08] MEDS ORDERED: FENTANYL CITRATE INJ/PF 100 MCG/2 ML AMPUL IV PRN ×3 (15:17)
[2018-03-08] MEDS ORDERED: DIPHENHYDRAMINE HCL 50 MG/ML VIAL IV PRN (15:17)
[2018-03-08] MEDS ORDERED: MORPHINE SULFATE 10 MG/ML INJ IV PRN (15:17)
[2018-03-08] MEDS ORDERED: MEPERIDINE HCL/PF INJ 25 MG/1 ML DISP.SYRIN IV PRN (15:17)
[2018-03-08] MEDS ORDERED: PROMETHAZINE HCL INJ 25 MG/1 ML VIAL IV PRN (15:17)
--- NOTE | 2018-03-08 16:20 | Operative Report ---
Operative Report DATE OF SURGERY: 03/08/18 PREOPERATIVE DIAGNOSIS: Symptomatic cholelithiasis and cholecystitis POSTOPERATIVE DIAGNOSIS: Same OPERATION: Laparoscopic cholecystectomy SURGEON: MI HAGER ANESTHESIA: GA TISSUE REMOVED OR ALTERED: one gall bladder COMPLICATIONS: none ESTIMATED BLOOD LOSS: 40 cc INTRAOPERATIVE FINDINGS: see below PROCEDURE: After obtaining informed consent, the patient was taken to the operating room. General Anesthesia was induced; the arms were extended, and the abdomen was exposed, and prepped and draped in a sterile fashion. Instrumentation was set up for laparoscopic cholecystectomy. Surgical plan and surgical timeout were conducted. A vertical incision was made above the umbilicus, and a verres needle was inserted uneventfully into the peritoneal cavity. Pneumoperitoneum was established. The verres needle was removed and a 5 mm trocar was inserted and a 5 mm flexible laparoscope was inserted. Visualization of the peritoneal cavity confirmed safe uneventful entry. Under direct visualization 3 additional 5 mm ports were established, one in the subxiphoid position and second in the subcostal position. There were dense adhesions between the gallbladder and the gastroduodenal area as well as the hepatic flexure of the transverse colon. These were taken down using a combination of hook cautery and blunt dissection. Visualization of the hepatobiliary anatomy revealed no anatomic variations. However there remained a film of fatty tissue surrounding the gallbladder which required continuous dissection during the course of the cholecystectomy. A grasper was placed on the fundus of the gallbladder and the gallbladder is elevated over the right surface of the liver; a second grasper was used to grasp the infundibulum of the gallbladder. We teased out the neck of the gallbladder removed because of the difficult exposure despite having the patient in extreme reverse Trendelenburg position, primarily due to her obesity , I felt that a top-down approach would be preferable. Therefore we repositioned the aspirates with one on the fundus and a second used to elevate the ledge of the right lobe of the liver. Using a hook cautery dissection, we took the gallbladder off of the liver bed very carefully. Eventually we got into the cystic artery in its somewhat more lateral location. It was secured with clips proximally and distally and divided with scissors. We continued dissection in a circumferential fashion narrowing the target tissue , specifically the neck and infundibulum of the gallbladder down to the tapering point of the origination of the cystic duct. Photos were taken. Because the cystic duct was somewhat thickened, we placed a 0 PDS Endoloop on the gallbladder side of the cystic duct. The cystic duct was opened with laparoscopic scissors, and we milked the cystic duct proximally of any stones. There were none. Some bile egressed out of the opening. We now secured the cystic duct formally with a second application of a 0 PDS Endoloop. The cystic duct was divided. Photos were taken. Graspers were repositioned and the gallbladder was removed uneventfully from the abdominal cavity through the super umbilical port site incision. The specimen was examined, then passed off to pathology for permanent analysis. We returned to the peritoneal cavity check for bleeding, and evidence of bile leak, and there was none. We Confirmed satisfactory placement of clips on cystic duct and cystic artery were secured . At this point we felt the operation was complete. The subcutaneous tissue was then anesthetized with quarter percent Marcaine Sponge and needle counts are correct. All ports removed under direct visualization pneumoperitoneum evacuated, and 5 mm port wounds closed with 3-0 Vicryl suture, benzoin and Steri-Strips. The patient was extubated, and taken to the recovery room in stable condition.
[2018-03-08] MEDS ORDERED: KETOROLAC TROMETHAMINE INJ/PF 30 MG/1 ML SDV ONE (17:30)
[2018-03-08] MEDS: NORMAL SALINE 1000 ML 1,000 ML IV PRN (21:31)
[2018-03-08] MEDS: KETOROLAC TROMETHAMINE INJ/PF 30 MG/1 ML SDV IV PRN (23:56)
[2018-03-09] MEDS: CEFAZOLIN 1 GM/D5W RTU 1 GM/50 ML RTUPB IV SCH ×2 (05:18→13:47)
[2018-03-09] MEDS: NORMAL SALINE 1000 ML 1,000 ML IV PRN ×2 (05:18→13:47)
[2018-03-09] MEDS: KETOROLAC TROMETHAMINE INJ/PF 30 MG/1 ML SDV IV PRN (11:17)
--- NOTE | 2018-03-09 15:07 | PDOC PROGRESS REPORT ---
Subjective Progress Note for:: 03/09/18 Subjective:: no c/o Reason For Visit: SYMPTOMATIC CHOLELITHIASIS WITH CHOLECYSTITIS Physical Exam Vital Signs: Temp Pulse Resp BP Pulse Ox 98.7 F 63 16 139/83 H 100 03/09/18 11:52 03/09/18 11:52 03/09/18 11:52 03/09/18 11:52 03/09/18 11:52 Intake & Output 03/08/18 03/09/18 03/10/18 06:59 06:59 06:59 Intake Total 3350 1000 Output Total 600 Balance 2750 1000 Weight 140.9 kg General appearance: PRESENT: no acute distress Respiratory exam: PRESENT: clear to auscultation ketan Cardiovascular exam: PRESENT: RRR GI/Abdominal exam: PRESENT: normal bowel sounds, soft, other - wounds c/d/i Results Impressions: Limited or Localized CT 03/08/18 07:02 IMPRESSION: Equivocal nonobstructing stone left UVJ. Correlation with urinalysis is recommended. Abdomen Ultrasound 03/08/18 09:29 IMPRESSION: Non mobile stone in the gallbladder neck. No evidence of acute cholecystitis. Assessment & Plan - Diagnosis (1) Cholelithiasis Qualifiers: Cholelithiasis location: gallbladder Cholecystitis presence: without cholecystitis Biliary obstruction: without biliary obstruction Qualified Code(s): K80.20 - Calculus of gallbladder without cholecystitis without obstruction Is this a current diagnosis for this admission?: Yes (2) Morbid obesity with BMI of 50.0-59.9, adult Is this a current diagnosis for this admission?: Yes - Plan Summary Plan Summary: A/ POD#1 after lap vivian patient doing well PO wel toelrated P/ Home today f/u with Surgery office (ELIZABETH Barbosa) in 2 weeks Resume diet and activities Return to work anytime No wound care needed Shower only x 2 weeks, then can bathe Tylenol / Aleve as needed for pain
[2018-03-09 15:28] VITALS: BP 127/67
--- NOTE | 2018-03-10 03:46 | DISCHARGE SUMMARY E ---
Discharge Summary NAME: HILDA BROTHERS : 1985 AGE: 33Y ADMITTED: 03/08/2018 DISCHARGED: 03/09/2018 FINAL DIAGNOSIS: 1. Symptomatic cholelithiasis. 2. Morbid obesity. PROCEDURE: Laparoscopic cholecystectomy on 03/08/2018. COMPLICATIONS: None. HOSPITAL COURSE: This is a morbidly obese 33-year-old -[place] female who presented with right upper quadrant pain, found to have symptomatic cholelithiasis. The patient underwent laparoscopic cholecystectomy on the day of admission, 03/08/2018. The procedure was uneventful. Postop course uneventful. She was kept on IV fluids, IV antibiotics. Her diet was advanced to a regular diet, which was tolerated. On the day of discharge, the patient's vital signs were stable. Physical exam was unremarkable. Wounds clean, dry, intact. She was able to tolerate the p.o. well. No blood work was obtained on that day. DISCHARGE ORDERS: The patient was discharged on 03/09/2018 and she was given a followup appointment in 2 weeks at the surgery clinic with the ELIZABETH Mena. Resume diet and medications. Activity as tolerated. The patient can return to work anytime. Tylenol and Aleve if needed fjtr-xzg-momxpft for pain. DICTATING PHYSICIAN: JUAN MIR M.D. [id number] PHY#: [id number] ID: [id number] JOB#: [id number] ACCT: [id number] cc:Beni CHUNG M.D. >
== END 2018-03-09 16:19 | disposition home or self-care (01) ==
LOC: ER 04:24 → EH 13:30 → 5 18:03
PROVIDERS: ADMIT Surgery; ATTEND Surgery
PROC: 0FT44ZZ Resection of Gallbladder, Percutaneous Endoscopic Approach (ICD-10-PCS; principal; 2018-03-08 14:30)
DX: K80.12 Calculus of gallbladder with acute and chronic cholecystitis without obstruction (principal); E66.01 Morbid (severe) obesity due to excess calories; Z68.43 Body mass index [BMI] 50.0-59.9, adult; I10 Essential (primary) hypertension; E11.9 Type 2 diabetes mellitus without complications; Z79.899 Other long term (current) drug therapy
CPT/HCPCS: 99285; 96361; 96374; 96375; 36415; 82962; 83690; 84703; 85025; 80053; 81001; 88304 ×2; 76705; 76380; 47562; J2250; J3490 ×4; J0690 ×2; J1100; S0119; J3010; J1885 ×2; J1170; J0330; J2405; J7030 ×2; J2704; J0131; 790

== ENCOUNTER 2019-07-22 11:33 | Emergency (ER) | payer BC ==
[2019-07-22] MEDS ORDERED: ACETAMINOPHEN 325 MG TABLET PO ONE (11:46)
--- NOTE | 2019-07-22 11:46 | ER Document Report ---
ED Respiratory Problem - General Chief Complaint: Chest Congestion Stated Complaint: CHEST CONGESTION/TROUBLE BREATHING/COUGH Time Seen by Provider: 07/22/19 11:39 Primary Care Provider: CHRIS CORTEZ MD [Primary Care Provider] - Follow up in 3-5 days Mode of Arrival: Ambulatory Information source: Patient Notes: 34-year-old female presents to ED for complaint of cough congestion runny nose 2 weeks ago. She states she did get better and then about a week ago started again. Now she has cough congestion and her chest is tight at times. She states she is having a hard time getting to sleep because of the cough and congestion. She is taken pssw-gwi-emmvomq medications with no relief. TRAVEL OUTSIDE OF THE [place] IN LAST 30 DAYS: No - HPI Patient complains to provider of: Short of breath. No: Asthma Onset: Other - 2 weeks Duration: Intermittent episodes Initiating Event: URI Quality of pain: Achy Severity: Moderate Pain Level: 4 Cough: Nonproductive Sputum amount: None Associated symptoms: Congestion, Cough, PND, Runny nose, Sinus pain/pressure. denies: Fever Similar symptoms previously: Yes Recently seen / treated by doctor: No - Related Data Allergies/Adverse Reactions: No Known Allergies Allergy (Verified 07/22/19 11:38) Past Medical History - General Information source: Patient - Social History Smoking Status: Former Smoker Frequency of alcohol use: None Drug Abuse: None Occupation: [employer] Lives with: Alone - with kids Family History: Reviewed & Not Pertinent Patient has suicidal ideation: No Patient has homicidal ideation: No - Past Medical History Cardiac Medical History: Reports: Hx Hypertension - during Pulmonary Medical History: Reports: None EENT Medical History: Reports: None Neurological Medical History: Reports: None Endocrine Medical History: Reports: None Renal/ Medical History: Reports: None Malignancy Medical History: Reports: None GI Medical History: Reports: None Musculoskeletal Medical History: Reports None Skin Medical History: Reports None Psychiatric Medical History: Reports: None Traumatic Medical History: Reports: None Infectious Medical History: Reports: None Past Surgical History: Reports: Hx Cholecystectomy - Immunizations Immunizations up to date: Yes Hx Diphtheria, Pertussis, Tetanus Vaccination: Yes Review of Systems - Review of Systems Constitutional: Chills, Fever, Recent illness EENT: Nose discharge, Sinus discharge Cardiovascular: No symptoms reported Respiratory: Cough, Short of breath Gastrointestinal: No symptoms reported Genitourinary: No symptoms reported Female Genitourinary: No symptoms reported Musculoskeletal: No symptoms reported Skin: No symptoms reported Hematologic/Lymphatic: No symptoms reported Neurological/Psychological: No symptoms reported -: Yes All other systems reviewed and negative Physical Exam - Vital signs Vitals: Temp Pulse Resp BP Pulse Ox 100.5 F H 86 18 139/89 H 100 07/22/19 11:34 07/22/19 11:34 07/22/19 11:34 07/22/19 11:34 07/22/19 11:34 Interpretation: Normal - General General appearance: Appears well, Alert - HEENT Head: Normocephalic, Atraumatic Eyes: Normal Pupils: PERRL Ears: Normal External canal: Normal Tympanic membrane: Normal Sinus: Normal Nasal: Purulent discharge, Swelling Mouth/Lips: Normal Pharynx: Post nasal drainage Neck: Normal - Respiratory Respiratory status: No respiratory distress Chest status: Nontender Breath sounds: Nonproductive cough Chest palpation: Normal - Cardiovascular Rhythm: Regular Heart sounds: Normal auscultation Murmur: No - Abdominal Inspection: Normal Distension: No distension Bowel sounds: Normal Tenderness: Nontender Organomegaly: No organomegaly - Back Back: Normal, Nontender - Extremities General upper extremity: Normal inspection, Nontender, Normal color, Normal ROM, Normal temperature General lower extremity: Normal inspection, Nontender, Normal color, Normal ROM, Normal temperature, Normal weight bearing. No: Andrea's sign - Neurological Neuro grossly intact: Yes Cognition: Normal Orientation: AAOx4 [place] Coma Scale Eye Opening: Spontaneous [place] Coma Scale Verbal: Oriented [place] Coma Scale Motor: Obeys Commands [place] Coma Scale Total: 15 Speech: Normal Motor strength normal: LUE, RUE, LLE, RLE Sensory: Normal - Psychological Associated symptoms: Normal affect, Normal mood - Skin Skin Temperature: Warm Skin Moisture: Dry Skin Color: Normal Course - Vital Signs Vital signs: Temp Pulse Resp BP Pulse Ox 98.6 F 86 18 150/87 H 100 07/22/19 13:32 07/22/19 11:34 07/22/19 11:34 07/22/19 13:32 07/22/19 11:34 Discharge - Discharge Clinical Impression: URI (upper respiratory infection) Qualifiers: URI type: unspecified viral URI Qualified Code(s): J06.9 - Acute upper respiratory infection, unspecified Condition: Stable Disposition: HOME, SELF-CARE Additional Instructions: UPPER RESPIRATORY ILLNESS: You have a viral infection of the respiratory passages -- a "cold." This common infection causes nasal congestion, drainage, and often sore throat and cough. It is highly contagious. The disease usually lasts about 10 to 14 days. There is no "cure" for the viral infection -- it must run its course. If there is a complication, such as bacterial infection in the nose, sinuses, middle ear, or bronchial tubes, antibiotics may be required. The antibiotics won't affect the virus. Drink plenty of fluids. A humidifier may help. An expectorant medication or decongestant may make you more comfortable. Use acetaminophen or ibuprofen for fever or aches. See the doctor if fever persists over two days, if there is any significant worsening of your symptoms, or if you simply fail to improve as expected. You were commended treatment with Coricidin HP. These are all bgyn-nfd-tfbdasu medications for cough cold congestion. He could also use Flonase which is pyst-mzu-oowzuia 1 spray each nostril twice a day. He could also use salt soda solution gargles. These will help to remove the drainage from the back your throat. Chloraseptic spray was sbmx-hfk-rxgorkl that will also help with your sore throat. Salt and soda solution gargle 1 quart of water 1 tablespoon of salt 1 teaspoon of baking soda Mixed 3 ingredients together and boil for 1 minute Placed in a covered quart jar Use 1/2 ounce of cold solution to gargle 3 times a day COUGH-SUPPRESSANT & EXPECTORANT MEDICATION: You are to use a cough medication as needed for relief of symptoms. This medicine is a combination of an expectorant (to make the mucous thinner and more easily "coughed up") and a cough suppressant (to reduce the frequency of coughing). The cough-suppressant medicine is related to narcotics. You may experience mild nausea and sleepiness. Some patients who are very sensitive to narcotics may have stomach pain from this medicine. Taking the medicine with food reduces these side effects. Do not drive or work with machinery until you know how this medicine affects you. The expectorant should have no side effects. Iodine-containing expectorants (such as organidin) should not be taken by persons with active thyroid disease unless approved by your doctor. Call the doctor if you develop shortness of breath, hives, rash, itching, lightheadedness, or severe nausea and vomiting. USE OF ACETAMINOPHEN (Tylenol): Acetaminophen may be taken for pain relief or fever control. It's much safer than aspirin, offering a wider range of "safe" dosages. It is safe during . Some brand names are Tylenol, Panadol, Datril, Anacin 3, Tempra, and Liquiprin. Acetaminophen can be repeated every four hours. The following are maximum recommended dosages: >89 pounds or adults 650 mg to 900 mg Acetaminophen can be repeated every four hours. Maximum dose not to exceed 4000 mg a day. SMOKING: If you smoke, you should stop smoking. The tar and chemicals in cigarette smoke are harmful. Smoking has been shown to cause: emphysema chronic bronchitis lung cancer mouth and throat cancer stomach and pancreas cancer premature aging defects In addition, smoking increases ear and lung infections in children of smokers. FOLLOW-UP CARE: If you have been referred to a physician for follow-up care, call the physicians office for an appointment as you were instructed or within the next two days. If you experience worsening or a significant change in your symptoms, notify the physician immediately or return to the Emergency Department at any time for re-evaluation. Forms: Elevated Blood Pressure Referrals: CHRIS CORTEZ MD [Primary Care Provider] - Follow up in 3-5 days
--- NOTE | 2019-07-22 12:32 | RADIOLOGY REPORT (SQ) ---
EXAM DESCRIPTION: CHEST 2 VIEWS COMPLETED DATE/TIME: 07/22/2019 12:00 pm REASON FOR STUDY: cough congestion fever COMPARISON: 09/22/2016 EXAM PARAMETERS: NUMBER OF VIEWS: two views TECHNIQUE: Digital Frontal and Lateral radiographic views of the chest acquired. RADIATION DOSE: NA LIMITATIONS: none FINDINGS: LUNGS AND PLEURA: No opacities, masses or pneumothorax. No pleural effusion. MEDIASTINUM AND HILAR STRUCTURES: No masses or contour abnormalities. HEART AND VASCULAR STRUCTURES: Heart normal size. No evidence for failure. BONES: No acute findings. HARDWARE: None in the chest. OTHER: No other significant finding. IMPRESSION: NO ACUTE RADIOGRAPHIC FINDING IN THE CHEST. TECHNICAL DOCUMENTATION: JOB ID: [id number] [employer]- All Rights Reserved Reading location - IP/workstation name: [email or web address]
[2019-07-22 12:37] LABS: A TYPE INFLUENZA AG NEGATIVE (NEGATIVE); B INFLUENZA AG NEGATIVE (NEGATIVE)
[2019-07-22 13:32] VITALS: BP 150/87
== END 2019-07-22 13:30 | disposition home or self-care (01) ==
LOC: ER 11:33
DX: J06.9 Acute upper respiratory infection, unspecified (principal); B97.89 Other viral agents as the cause of diseases classified elsewhere; R05 Cough; R09.89 Other specified symptoms and signs involving the circulatory and respiratory systems; R07.89 Other chest pain; R06.02 Shortness of breath; R09.82 Postnasal drip; J34.89 Other specified disorders of nose and nasal sinuses; R50.9 Fever, unspecified; Z87.891 Personal history of nicotine dependence
CPT/HCPCS: 71046; 87804; 99283

== ENCOUNTER 2020-08-13 09:01 | Emergency (ER) | payer OTHER, BC ==
[2020-08-13 09:13] VITALS: BP 151/96
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
[2020-08-13] MEDS ORDERED: KETOROLAC TROMETHAMINE 60 MG/2 ML SDV IM ONE (10:55)
[2020-08-13] MEDS ORDERED: LIDOCAINE 5% (700 MG) TRANSDERMAL ADH..PATCH TP ONE (10:55)
== END 2020-08-13 11:19 | disposition home or self-care (01) ==
LOC: ER 09:01
DX: M54.5 Low back pain (principal); V43.52XA Car driver injured in collision with other type car in traffic accident, initial encounter; Y93.89 Activity, other specified
CPT/HCPCS: 99284; 96372; J1885